=== PATIENT | female | born 1970 | race Caucasian/White ===

== ENCOUNTER 2019-05-08 16:55 | Emergency (ER) | payer OTHER, SELFPAY ==
--- NOTE | 2019-05-08 17:05 | ED.URI ---
HPI - URI/Sore Throat General Chief Complaint: Upper Respiratory Infection Stated Complaint: sore throat/ear pn Time Seen by Provider: 05/08/19 17:15 Source: patient and RN notes reviewed History of Present Illness HPI Narrative: Patient is a 48-year-old female presents the urgent care with complaints of sore throat and bilateral ear pain. Patient states that it started last night and she boarded a plane this afternoon. Denies any use of djof-fxf-[id number] medication for symptoms. Denies any known exposure to flu or strep. Denies any known fever, nausea, vomiting. No other acute complaints. No acute distress noted. Patient aware of the plan of care. Related Data Home Medications Medication Instructions Recorded Confirmed levothyroxine [Synthroid] 100 mcg PO DAILY 05/08/19 05/08/19 lisinopril 20 mg PO DAILY 05/08/19 05/08/19 Allergies Allergy/AdvReac Type Severity Reaction Status Date / Time acetaminophen [From Percocet] Allergy Hallucinati Verified 05/08/19 17:14 ng codeine Allergy Rash Verified 05/08/19 17:14 oxycodone [From Percocet] Allergy Hallucinati Verified 05/08/19 17:14 ng Review of Systems Review of Systems: Narrative: CONSTITUTIONAL: Denies fever, chills, or sweats. EYES: Denies visual changes, redness, or discharge. ENT: Reports of sore throat and bilateral ear pain CARDIOVASCULAR: Denies chest pain, palpitations, or edema. RESPIRATORY: Denies cough or dyspnea. GASTROINTESTINAL: Denies abdominal pain, nausea, vomiting, or diarrhea. GENITOURINARY: Denies dysuria or hematuria. SKIN: Denies rash or itching. MUSCULOSKELETAL: Denies back pain, joint pain, or myalgia. NEUROLOGIC: Denies headache, numbness, or weakness. All other systems reviewed are negative, except as documented in HPI. PMFSH Comments At the time of my signature, I reviewed and agree with the nursing past medical, surgical, social, and family history. There is no relevant family history pertinent to the patient complaint. Exam Narrative: Exam Narrative: GENERAL: This is a well-nourished, well-developed patient, in no apparent distress. HEAD: normocephalic, atraumatic. EYES: PERRL. Sclera clear/white. Vision is grossly intact. EARS: External ears normal, auditory canals clear and without drainage, mild fluid noted behind bilateral TMs without otitis, TMs normal without perforation. Hearing grossly intact. NOSE: External nose normal with no obvious nasal discharge, nares without redness, no rhinorrhea. THROAT: Mucous membranes moist. Moderate postnasal drainage with mild posterior oropharynx without tonsillar edema or exudate. NECK: Neck supple, non-tender without lymphadenopathy, masses or thyromegaly. CARDIOVASCULAR: Regular rate and rhythm without murmurs, gallops, or rubs. RESPIRATORY: Clear to auscultation. Breath sounds equal bilaterally. No wheezes, rales, or rhonchi. SKIN: warm, intact with no suspicious lesions or rash, good texture and turgor. NEURO: awake, alert, and oriented to person, place and time. There were no obvious focal neurologic abnormalities. EXTREMITIES: No clubbing, cyanosis, or edema. Course Vital Signs Vital signs: Vital Signs Temperature 99.4 F 05/08/19 17:09 Pulse Rate 78 05/08/19 17:09 Respiratory Rate 20 05/08/19 17:09 Blood Pressure 122/79 05/08/19 17:09 Pulse Oximetry 100 05/08/19 17:09 Temperature 99.4 F 05/08/19 17:09 Pulse Rate 78 05/08/19 17:09 Respiratory Rate 20 05/08/19 17:09 Blood Pressure 122/79 05/08/19 17:09 Pulse Oximetry 100 05/08/19 17:09 Reviewed MDM - URI/Sore Throat MDM Narrative Medical decision making narrative: Reviewed lab results with the patient. She is aware that her strep swab was negative. Educated patient on culture and will call within 72 hours if culture is positive and antibiotics are necessary. Advised the patient to use [id number]-xim-[id number] medication such as Claritin/Zyrtec in conjunction with Flonase nasal spray for postnas
[2019-05-08 17:09] VITALS: BP 122/79; PULSE 78; RESP 20; TEMP 37.4; O2SAT 100
== END 2019-05-08 17:30 | disposition home or self-care (01) ==
PROVIDERS: Emergency Provider Nurse Practitioner Family; PCP Family Medicine
DX: J02.9 Acute pharyngitis, unspecified (principal); I10 Essential (primary) hypertension; E03.9 Hypothyroidism, unspecified
CPT/HCPCS: 87081; 87880; 99203; G0463

== ENCOUNTER 2019-08-12 18:54 | Emergency (ER) | payer OTHER, SELFPAY ==
--- NOTE | ~2019-08-12 | XR_ITS ---
EXAMINATION: XR knee RT min 4V EXAM DATE: 08/12/2019 19:28 INDICATION: [place] pop one week ago, persistent right knee posterior lateral pain. TECHNIQUE: Right knee frontal, crosstable lateral, orthogonal oblique projections for interpretation . There is no prior study for comparison. FINDINGS: No evidence osteochondral defect or joint body in the right knee joint. No joint effusio n. There are no acute fractures or dislocations identified. There is no subcutaneous gas. The soft tissue is unremarkable. There are no radiopaque foreign bodies. IMPRESSION: 1. Unremarkable right knee exam. Reviewed, dictated and finalized at location A.
[2019-08-12 18:55] VITALS: BP 168/86; PULSE 73; RESP 18; TEMP 36.5; O2SAT 100
--- NOTE | 2019-08-12 19:19 | ED.LOWEXIN ---
HPI - Extremity Injury (Lower) General Chief Complaint: Extremity Injury, Lower Stated Complaint: right knee pain Time Seen by Provider: 08/12/19 19:13 History of Present Illness HPI Narrative: Right knee pain for the past week. Started when she was walking up the stairs and heard a pop. Worsening in severity. The pain is in the anteriorlateral of the knee. Worse with bearing weight and knee extension. Mild improvement with walking on her toes. Taking ibuprofen without relief. Related Data Home Medications Medication Instructions Recorded Confirmed levothyroxine [Synthroid] 100 mcg PO DAILY 05/08/19 05/08/19 lisinopril 20 mg PO DAILY 05/08/19 05/08/19 Allergies Allergy/AdvReac Type Severity Reaction Status Date / Time acetaminophen [From Percocet] Allergy Hallucinati Verified 08/12/19 18:58 ng codeine Allergy Rash Verified 08/12/19 18:58 oxycodone [From Percocet] Allergy Hallucinati Verified 08/12/19 18:58 ng Review of Systems Review of Systems: All systems reviewed & are unremarkable except as noted in HPI and below Constitutional: Constitutional: Denies fever(s) and Denies weakness Cardiovascular: Cardiovascular: Denies chest pain Respiratory: Respiratory: Denies dyspnea Musculoskeletal: Musculoskeletal: Denies back pain Integumentary/Breasts: Skin/Breast: Denies rash Neurologic: Denies numbness and Denies weakness PMFSH Social History Social History (Updated 08/13/19 @ 02:25 by Silverio Garcia MD) Smoking status: Never smoker Exam Const: General: healthy appearing, no acute distress and alert Nutritional Appearance: well nourished Orientation/consciousness: patient oriented x3 HENMT: Head: normal to inspection Resp: Effort & Inspection: normal respiratory effort Cardio: Jugular venous distension: no JVD Rate: regular rate Rhythm: regular rhythm Heart sounds: no murmurs Skin: General skin exam: normal color Wounds: no wounds Neuro: General: patient oriented x3 and moves all extremities Speech: normal speech Gait exam (Neuro): Normal gait present Extrem: General: normal to inspection and edema Other: lateral joint line tenderness. No swelling, erythema, deformity, instability Psych: Appearance: well kempt Affect: normal affect Course Vital Signs Vital signs: Vital Signs Temperature 36.5 C 08/12/19 18:55 Pulse Rate 73 08/12/19 18:55 Respiratory Rate 18 08/12/19 18:55 Blood Pressure 168/86 H 08/12/19 18:55 Pulse Oximetry 100 08/12/19 18:55 Temperature 36.5 C 08/12/19 18:55 Pulse Rate 72 08/12/19 20:06 Respiratory Rate 18 08/12/19 20:06 Blood Pressure 142/96 H 08/12/19 20:06 Pulse Oximetry 98 08/12/19 20:06 MDM - Extremity Injury (Lower) MDM Narrative Medical decision making narrative: Mechanism does not suggest severe injury. essentially normal exam. X-ray negative. Will provide a prescrition for short course of pain medication. Discharge Plan Discharge Clinical Impression: Acute knee pain Patient Disposition: Home, Self-Care Condition: Stable Instructions: Knee Pain (ED) Prescriptions: New tramadol 50 mg tablet 50 mg PO Q6H PRN (Reason: pain) Qty: 10 RF: 0 No Action lisinopril 20 mg Tablet 20 mg PO DAILY RF: 0 levothyroxine [Synthroid] 100 mcg Tablet 100 mcg PO DAILY RF: 0 Follow-up/Referrals: Grace,Mack Martin MD [Primary Care Provider] - Discharge Date/Time: 08/12/19 20:08
[2019-08-12 20:06] VITALS: BP 142/96; PULSE 72; RESP 18; O2SAT 98
== END 2019-08-12 20:08 | disposition home or self-care (01) ==
PROVIDERS: Emergency Provider Emergency Medicine; PCP Family Medicine
DX: M25.561 Pain in right knee (principal)
CPT/HCPCS: 73564; 99283

== ENCOUNTER 2021-04-12 16:11 | Emergency (ER) | payer OTHER, SELFPAY ==
--- NOTE | 2021-04-12 16:19 | ED.EYEPROB ---
HPI - Eye Problem General Chief complaint: Eye Problems Stated complaint: rt eye pain Time Seen by Provider: 04/12/21 16:40 Source: patient Mode of arrival: ambulatory Limitations: no limitations History of Present Illness HPI Narrative: 50-year-old female presenting for complaint of right lower eyelid pain, swelling, and stye. She states she woke this morning with some crusted drainage and itching. Pain radiates to the right upper cheek. Denies any vision changes or photophobia. Does not wear contact lenses. chief complaint: eye pain Related Data Home Medications Medication Instructions Recorded Confirmed levothyroxine [Synthroid] 100 mcg PO DAILY 05/08/19 04/12/21 lisinopril 20 mg PO DAILY 05/08/19 04/12/21 Allergies Allergy/AdvReac Type Severity Reaction Status Date / Time acetaminophen [From Percocet] Allergy Hallucinati Verified 04/12/21 16:27 ng ciprofloxacin [From Cipro] Allergy Unknown Verified 04/12/21 16:49 codeine Allergy Rash Verified 04/12/21 16:27 metronidazole [From Flagyl] Allergy Unknown Verified 04/12/21 16:50 oxycodone [From Percocet] Allergy Hallucinati Verified 04/12/21 16:27 ng Review of Systems Review of Systems: CONSTITUTIONAL: Denies body aches, fever, chills, or sweats. EYES:Endorses swelling, redness and pain to right eye; denies FB sensation, photophobia or visual changes ENT: Denies rhinorrhea, congestion, sore throat, or otalgia. CARDIOVASCULAR: Denies chest pain, palpitations, or edema. RESPIRATORY: Denies cough or dyspnea. GASTROINTESTINAL: Denies abdominal pain, nausea, vomiting, or diarrhea. GENITOURINARY: Denies dysuria or hematuria. SKIN: Denies rash, itching, or wounds. MUSCULOSKELETAL: Denies back pain, joint pain, or myalgia. NEUROLOGIC: Denies headache, numbness, tingling, or weakness. PSYCH: Denies depression or anxiety. All systems reviewed & are unremarkable except as noted in HPI and below PMFSH Social History Social History Smoking status: Never smoker Comments At time of signature, I have reviewed and agree with nursing past medical, surgical, social and family history unless otherwise noted. Please see nursing chart for further information. There is no relevant family history pertinent to the presenting complaint Exam Narrative: GENERAL: Well-appearing, well-nourished, and in no acute distress. HEAD: Normocephalic, atraumatic. EYES: right lower eye lid swelling/redness with white center c/w stye; no conjunctival injection, EOMI. Lid eversion showed no FB ENT: Mucous membranes pink and moist. No rhinorrhea. TMs normal bilaterally. Throat normal. Uvula midline. NECK: Normal AROM. Supple. No lymphadenopathy. CHEST: No respiratory distress. Clear to auscultation. HEART: Regular rate and rhythm. No murmur appreciated. Normal peripheral pulses. ABDOMEN: Soft, nontender, nondistended, normal active bowel sounds. MUSCULOSKELETAL: No bony tenderness. EXTREMITIES: Normal range of motion. No edema. SKIN: Warm, dry, no rash. Capillary refill normal. Normal skin turgor. NEURO: No focal deficits. Alert and oriented x3. Gait steady. PSYCH: Normal affect. No signs of depression or anxiety. Course Course Emergency Course: Patient is aware of diagnosis, understands and agrees to treatment plan. Anticipatory guidance given. Patient agrees to follow-up as directed and is aware of reasons to seek care at the emergency department. Portions of this record may have been created with voice recognition software Level of Care: Express Care Visit MDM - Eye Problem Differential Diagnosis Differential diagnosis: Likely corneal abrasion, conjunctivitis, acute iritis, periorbital cellulitis and other Discharge Plan Discharge Clinical Impression: Hordeolum externum of right lower eyelid Patient Disposition: Home, Self-Care Condition: Stable Instructions: Antibiotic Theresa Chen (ED) Add
[2021-04-12 16:22] VITALS: BP 149/96; PULSE 82; RESP 18; TEMP 36.4; O2SAT 100
== END 2021-04-12 16:54 | disposition home or self-care (01) ==
PROVIDERS: Emergency Provider Nurse Practitioner Family; PCP Family Medicine
DX: H00.012 Hordeolum externum right lower eyelid (principal); I10 Essential (primary) hypertension; E03.9 Hypothyroidism, unspecified
CPT/HCPCS: 99213; G0463

== ENCOUNTER 2022-05-24 11:54 | Emergency (ER) | payer OTHER, SELFPAY ==
--- NOTE | 2022-05-24 11:59 | ED.FEMALEGU ---
HPI - Female Genitourinary General Chief complaint: Urogenital-Female Stated complaint: vaginal discomfort Time Seen by Provider: 05/24/22 11:59 Source: patient Mode of arrival: ambulatory Limitations: no limitations History of Present Illness HPI Narrative: Teresa is a 51-year-old female patient presenting to the clinic today with complaints of vaginal discomfort x2-3 days. She reports she is having some perineal pressure and pain when sitting. She reports her pain currently a 5/10 when sitting and a 1-2 when walking and standing. She denies any fever or chills. She denies any vaginal discharge or odors. States she looked in the mirror and did not see any abnormalities in this area. States the pain got worse today. Pain to this area when having a bowel movement Related Data Home Medications Medication Instructions Recorded Confirmed adalimumab 40 mg/0.4 mL 40 mg subcut DAILY 05/24/22 05/24/22 subcutaneous pen kit (Humira(CF) Pen) azathioprine 50 mg tablet 50 mg PO DAILY 05/24/22 05/24/22 Allergies Allergy/AdvReac Type Severity Reaction Status Date / Time acetaminophen [From Percocet] Allergy Hallucinati Verified 05/24/22 12:28 ng ciprofloxacin [From Cipro] Allergy Unknown Verified 05/24/22 12:28 codeine Allergy Rash Verified 05/24/22 12:28 metronidazole [From Flagyl] Allergy Unknown Verified 05/24/22 12:28 oxycodone [From Percocet] Allergy Hallucinati Verified 05/24/22 12:28 ng Review of Systems Review of Systems: Pertinent positives per HPI. Patient denies any fever, chills, rash, headache, visual changes, dizziness, cough, runny nose, sore throat, shortness of breath, chest pain, palpitations, nausea, vomiting, diarrhea, constipation, abdominal pain, or any urinary issues. PMFSH Social History Social History Smoking status: Never smoker Comments At the time of my signature, I reviewed and agree with the nursing past medical, surgical, social, and family history. There is no relevant family history pertinent to the patient complaint. Exam Narrative: General: Well-developed, well nourished, in no apparent distress Head: Normocephalic, atraumatic. Cardio: Regular rate and rhythm, s1 and s2 normal, no murmur appreciated. Resp: Clear to auscultation bilaterally, no rhonchi, rales, wheezing or rubs. Abdomen: Soft, pliable, bowel sounds present in all quadrants, non-tender to palpation, no CVAT tenderness. : External genitalia exam performed with (Pao) at bedside. Verbal consent obtained from patient. Normal external female genitalia without lesions or masses, Urinary meatus: patent without discharge, Vagina: No external lesions, masses, or discharge, Mild tenderness to perineum near anus Rectum: Large inflamed non thrombosed tender external hemorrhoid at 12 o'clock Course Course Emergency Course: Portions of this record may have been created with voice recognition software. Level of Care: Express Care Visit Vital Signs Vital signs: Vital Signs Temperature 36.5 C 05/24/22 12:14 Pulse Rate 90 05/24/22 12:14 Respiratory Rate 16 05/24/22 12:14 Blood Pressure 140/87 05/24/22 12:14 Pulse Oximetry 100 05/24/22 12:14 Temperature 36.5 C 05/24/22 12:14 Pulse Rate 90 05/24/22 12:14 Respiratory Rate 16 05/24/22 12:14 Blood Pressure 140/87 05/24/22 12:14 Pulse Oximetry 100 05/24/22 12:14 Vital signs reviewed MDM - Female Genitourinary MDM Narrative Medical decision making narrative: At the time of visit patient is resting comfortably on the exam table. I suspect the patient has an inflamed external hemorrhoid. Prescription for Anusol and lidocaine was sent to the pharmacy. Supportive measures were discussed with the patient she voiced understanding discharge instructions agrees to treatment plan. Differential Diagnosis Differential diagnosis: Likely other (Perineal cyst, p
[2022-05-24 12:14] VITALS: BP 140/87; PULSE 90; RESP 16; TEMP 36.5; O2SAT 100
== END 2022-05-24 12:40 | disposition home or self-care (01) ==
PROVIDERS: Emergency Provider Nurse Practitioner Family; PCP Family Medicine
DX: K64.4 Residual hemorrhoidal skin tags (principal); I10 Essential (primary) hypertension; E03.9 Hypothyroidism, unspecified; M06.9 Rheumatoid arthritis, unspecified
CPT/HCPCS: 99213; G0463

== ENCOUNTER 2024-06-13 10:00 | Emergency (ER) | payer OTHER, SELFPAY ==
[2024-06-13 10:15] VITALS: BP 109/82; PULSE 85; RESP 18; TEMP 36.6; O2SAT 98
--- NOTE | 2024-06-13 10:19 | ED.URI ---
HPI - URI/Sore Throat General Chief Complaint: Upper Respiratory Infection Stated Complaint: sore throat History of Present Illness HPI Narrative: 53-year-old female with autoimmune disease presented for complaint of sore throat, nasal drainage, headache, chills and sweats. Onset last night. Denies shortness of breath, wheezing, nausea, vomiting, diarrhea or lethargy. Has been using cough drops and mewc-irr-nenzfnb medicine without significant improvement. Related Data Home Medications ?Medication ?Instructions ?Recorded ?Confirmed ?Last Taken ?Type adalimumab 40 mg/0.4 mL 40 mg subcut DAILY 05/24/22 05/24/22 Unknown History subcutaneous pen kit (Humira(CF) Pen) azathioprine 50 mg tablet 50 mg PO DAILY 05/24/22 05/24/22 Unknown History Allergies Allergy/AdvReac Type Severity Reaction Status Date / Time ciprofloxacin (From Cipro) Allergy Mild Rash Verified 06/13/24 10:11 codeine Allergy Mild Rash Verified 06/13/24 10:11 metronidazole (From Flagyl) Allergy Mild Rash Verified 06/13/24 10:11 acetaminophen (From Percocet) AdvReac Intermediate Hallucinati Verified 06/13/24 10:11 ng oxycodone (From Percocet) AdvReac Intermediate Hallucinati Verified 06/13/24 10:11 ng Review of Systems Review of Systems: CONSTITUTIONAL: reports fever, chills, or sweats. EYES: Denies visual changes, redness, or discharge. ENT:reports sore throat Denies rhinorrhea, congestion, or otalgia. CARDIOVASCULAR: Denies chest pain, palpitations, or edema. RESPIRATORY: Denies dyspnea. GASTROINTESTINAL: Denies abdominal pain, nausea, vomiting, or diarrhea. SKIN: Denies rash NEUROLOGIC: Denies headache [facility] Social History Social History Smoking status: Never smoker Exam Narrative: GENERAL: well-appearing, no acute distress. EYES: conjunctivae clear ENT: Mucous membranes moist. TM pearly landers with normal light reflex bilaterally; no tragal tenderness. Oropharynx not erythematous without lesions. Tonsils enlarged 1+ and without exudate. No drooling, no hoarseness, no trismus, uvula midline. No tripod positioning, hot potato voice, or soft palate swelling. NECK: Supple. No lymphadenopathy CHEST: Clear to auscultation, breath sounds equal. No respiratory distress, speaks in full sentences. HEART: Regular rate and rhythm. No murmur heard. SKIN: Warm, dry, no rash. NEURO: Alert and oriented x3. Course Course Emergency Course: Patient is aware of diagnosis, understands and agrees to treatment plan. Anticipatory guidance given. Patient agrees to follow-up as directed and is aware of reasons to seek care at the emergency department. Portions of this record may have been created with voice recognition software Level of Care: Express Care Visit MDM - URI/Sore Throat MDM Narrative Medical decision making narrative: neg flu covid, strep result reviewed with pt. Advise supportive treatments. Patient is appropriate for outpatient treatment and follow-up. Differential Diagnosis Differential diagnosis: Likely upper respiratory infection, viral infection and pharyngitis Discharge Plan Discharge Clinical Impression: Upper respiratory infection Patient Disposition: Home, Self-Care Condition: Stable Instructions: Antibiotic Form, Upper Respiratory Infection (ED) Additional Instructions: Flu and COVID negative today. It may be too early to detect the virus, therefore we recommend retesting at home in 1-2 days Continue to follow general precautions: frequent handwashing, wear a mask, isolate/social distance, and avoid crowds if you have a fever. You must be fever free for 24 hours without the use of fever reducing medication (Tylenol/ibuprofen) before returning to work/school/crowds. Rapid strep swab was negative today You will be notified in a few days if the culture comes back positive for strep, and appropriate antibiotics will be called in at that time. if symptoms are due to a viral illness, it is not treated with antibiotics. Viral symptoms can be present for up to 10-14 days. Recommendations: Flonase spray and Zyrtec for sinus congestion/drainage Cough syrup may cause drowsiness; avoid driving or take it at night time. Tylenol every 8 hours as needed for pain/fever Soft foods, cool liquids, warm tea. Gargle with warm saltwater twice a day. Chloraseptic spray and throat lozenges. Rest and stay hydrated. --Follow up with your PCP --Go to the ER immediately if you cannot swallow your saliva, trouble breathing/wheezing, throat swelling, pain is persistent and severe Patient Language: B[place] Prescriptions: No Action azathioprine 50 mg tablet 50 mg PO DAILY Humira(CF) Pen 40 mg/0.4 mL pen injector kit 40 mg SUBCUT DAILY hydrocortisone [Anusol-HC] 2.5 % cream with perineal applicator 1 applic RECTAL DAILY PRN (Reason: hemorrhoids) 30 Days Qty: 30 0RF lidocaine HCl [Lidocaine Viscous] 2 % solution 1 applic topical QID PRN (Reason: pain) 7 Days Qty: 100 1RF Follow-up/Referrals: Edward,Sidney [Other] Time of Disposition: 10:33
[2024-06-13 10:34] LABS: EDCOVIDSCREEN Negative (Negative); EDINFLUASCREEN Negative (Negative); EDINFLUBSCREEN Negative (Negative); EDSTREPNEGPOS1 Negative (Negative)
--- OUTSIDE RECORDS SUMMARY | 2024-06-13 11:32 | XMS_ITS | Encounter Summary ---
Author Organization [facility] Address [facility] [place] [address] Care Team Providers Care [employer] Compounder Name Role Phone Adam Nielsen MD Unavailable Unavailable Gage Pham MD Unavailable [phone] Sara Mansfield [facility] Primary Care Provider + Sidney Leon DO Primary Care Provider [phone] Encounter Details Date Type Department Care Team (Late st Contact Info) Description 02/04/2022 [employer] Message Enc [facility] Family & Internal Medicine [address] [address] Sara Mansfield [id number] [place] [address] Question regarding TSH W/REFLEX Social History Tobacco Use Types Packs/Day Years Used Date Smoking Tobacco: Former Cigarettes 1 986 - 03/22/2016 Smokeless Tobacco: Never Comments:Stopped 5 years ago Alcohol Use Standard Drinks/Week Comments Not Currently 0 (1 standard drink = 0.6 oz pur e alcohol) AUDIT-C Answer Date Recorded Q1: How often do you have a drink containing alc ohol? 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 GRINDER documented as of this encounter Plan of Treatment Upcoming Encounters Date Type Department Care Team (Late st Contact Info) Description 06/14/2024 7:20 AM CDT Office Visit [facility]ispecialty [facility] - [address], [address] [place] [address] Any Shaver MD [address] [place] [address] 06/20/2024 1:00 PM CDT Office Visit [facility] Orthopedic & Sports Medicine - [place] [address] [place] [address] Ryan Strange, BOBBY [address] [place] [address] 11/23/2024 1:00 PM CDT Office Visit [facility] Family Medicine - [place] [address] [place] [id number] Sidney Leon DO [address] [place] [address] documented as of this encounter Visit Diagnoses Not on filedocumented in this encounter Additional Health Concerns Assessment Noted Time PHQ-9 Depression Total Score: 4 12/20/19 21 8:53 AM CDT documented as of this encounter Care Teams [employer] Compounder Relationship Specialty Start Date End Date Sara Mansfield, RATE MANAGER- [facility], [address] [place] [id number] PCP - General Nurse Practitioner Family 12/19/20 09/15/22 Sidney [place] [address] PCP - General 09/16/22 Adam Nielsen MD Referring Physician RHEUMATOLOGY 12/19/20 Gage Pham MD [facility], [address] [place] [id number] Physician CARDIOVASCULAR DISEASE 12/19/20 documented as of this encounter
--- OUTSIDE RECORDS SUMMARY | 2024-06-13 11:32 | XMS_ITS | Encounter Summary ---
Author Organization [facility] Address [facility]6 [place] [address] Care Team Providers Care Dry Wall Installer Name Role Phone Adam Nielsen MD Unavailable Unavailable Gage Pham MD Unavailable Sidney Leon DO Primary Care Provider [phone] Encounter Details Date Type Department Care Team (Late st Contact Info) Description 10/14/2023 MyChart Message Enc [facility] - [facility] 3 [facility], [address] [place] [address] Any Shaver MD 3 [place], [place] [id number] Topamax update Social History Tobacco Use Types Packs/Day Years [...] on file 04/23 PHQ-2 Answer Date Recorded Patient Health Questionnaire-2 Score 0 05/27/2023 Comments No Sex and Gender Information Value Date Recorded Sex Assigned at Female 05/10/2019 11:42 AM TECHNICAL DELIVERY MANAGER Legal Sex Female 4:46 PM CDT Gender Identity Female 05/10/2019 11:42 AM TECHNICAL DELIVERY MANAGER Sexual Orientation Straight 05/10/2019 11 :42 AM TECHNICAL DELIVERY MANAGER 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 [address] 11/23/2024 1:00 PM CDT Office Visit [facility] Family Medicine - [place] [address] [place] [address] Sidney Leon DO [address] [place] [address] [place] [address] documented as of this encounter Visit Diagnoses Not on filedocumented in this encounter Additional Health Concerns Assessment Noted Time PHQ-9 Depression Total Score: 4 12/20/19 21 8:53 AM CDT documented as of this encounter Care Teams Dry Wall Installer Relationship Specialty Start Date End Date Sidney Leon DO [address] [place], [place] [id number] PCP - General 09/16/22 Adam Nielsen MD Referring Physician RHEUMATOLOGY 12/19/20 Gage Pham MD [facility], [address] [place] [address] Physician CARDIOVASCULAR DISEASE 12/19/20 documented as of this encounter
--- OUTSIDE RECORDS SUMMARY | 2024-06-13 11:32 | XMS_ITS | Encounter Summary ---
Author Organization [facility] Address [facility]6 [place] [address] Care Team Providers Care Art Conservator Name Role Phone Adam Nielsen MD Unavailable Unavailable Gage Pham MD Unavailable Sidney Leon DO Primary Care Provider [phone] Encounter Details Date Type Department Care Team (Late st Contact Info) Description 03/05/2024 Enprise Solutionst Message Enc [facility] Medical Group Family Medicine - [place] 5 [place] [address] Sidney Leon DO [address] [place] [address] Welbutrin Social History Tobacco Use Types Packs/Day Years Used Date Smoking Tobacco: Former Cigarettes 1 986 - 03/22/2016 Passive Smoke Exposure: Past Smokeless Tobacco: Never Comments:Stopped 5 years ago [...] Date Recorded Patient Health Questionnaire-2 Score 0 11/17/2023 Comments No Sex and Gender Information Value Date Recorded Sex Assigned at Female 05/10/2019 11:42 AM MEAT CUTTER APPRENTICE Legal Sex Female 4:46 PM CDT Gender Identity Female 05/10/2019 11:42 AM MEAT CUTTER APPRENTICE Sexual Orientation Straight 05/10/2019 11 :42 AM MEAT CUTTER APPRENTICE 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 Not on file Not on file documented as of this encounter Plan of Treatment Upcoming Encounters Date Type Department Care Team (Late st Contact Info) Description 06/14/2024 7:20 AM CDT Office Visit [facility] Multispecialty Care - [facility] 3 [facility], [address] [place] [address] Any Shaver MD 3 [place] [address] 06/20/2024 1:00 PM CDT Office Visit [facility] Orthopedic & Sports Medicine - [place] [address] [place], [place] [address] Ryan Strange NP 670 [place] [address] 11/23/2024 1:00 PM CDT Office Visit [facility] Family Medicine [facility] 5 [place] [address] Sidney Leon DO [address] [place] [address] [place], [place] [phone] documented as of this encounter Visit Diagnoses Not on filedocumented in this encounter Additional Health Concerns Assessment Noted Time PHQ-9 Depression Total Score: 4 12/20/19 21 8:53 AM CDT documented as of this encounter Care Teams Art Conservator Relationship Specialty Start Date End Date Sidney Leon DO [address] [place], [place] [id number] PCP - General 09/16/22 Adam Nielsen MD Referring Physician RHEUMATOLOGY 12/19/20 Gage Pham MD [facility], [address] [place] [address] Physician CARDIOVASCULAR DISEASE 12/19/20 documented as of this encounter
--- OUTSIDE RECORDS SUMMARY | 2024-06-13 11:32 | XMS_ITS | Encounter Summary ---
Author Organization [facility] Address [facility]6 [place] [address] Care Team Providers Care Appeals Referee Name Role Phone Adam Nielsen MD Unavailable Unavailable Gage Pham MD Unavailable Sidney Leon DO Primary Care Provider [phone] Encounter Details Date Type Department Care Team (Late st Contact Info) Description 10/08/2022 AddThist Message Enc [facility] Medical Group Family Medicine - [place] 5 [place] [address] Sidney Leon DO [address] [place] [address] Pharmacy Social History Tobacco Use Types Packs/Day Years [...] Date Recorded Patient Health Questionnaire-2 Score 0 10/07/2022 Comments No Sex and Gender Information Value Date Recorded Sex Assigned at Female 05/10/2019 11:42 AM REVIEW ENGINEER Legal Sex Female 4:46 PM CDT Gender Identity Female 05/10/2019 11:42 AM REVIEW ENGINEER Sexual Orientation Straight 05/10/2019 11 :42 AM REVIEW ENGINEER 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 Not on file Not on file documented as of this encounter Plan of Treatment Upcoming Encounters Date Type Department Care Team (Late st Contact Info) Description 06/14/2024 7:20 AM CDT Office Visit [facility] Mult[facility]pecialty Care - [facility] 3 [facility], [address] [place] [address] Any Shaver MD 3 [place] [address] 06/20/2024 1:00 PM CDT Office Visit [facility] Orthopedic & Sports Medicine - [place] [address] [place], [place] [phone] Ryan tSrange NP 670 [place], [place] [address] 11/23/2024 1:00 PM CDT Office Visit [facility] Family Medicine [facility] 5 [place] [address] Sidney Leon DO [address] [place] [address] [place], [place] [phone] documented as of this encounter Visit Diagnoses Not on filedocumented in this encounter Additional Health Concerns Assessment Noted Time PHQ-9 Depression Total Score: 4 12/20/19 21 8:53 AM CDT documented as of this encounter Care Teams Appeals Referee Relationship Specialty Start Date End Date Sidney Leon DO [address] [place] [address] PCP - General 09/16/22 Adam Nielsen MD Referring Physician RHEUMATOLOGY 12/19/20 Gage Pham MD [facility] [address] [place] [address] Physician CARDIOVASCULAR DISEASE 12/19/20 documented as of this encounter
--- OUTSIDE RECORDS SUMMARY | 2024-06-13 11:32 | XMS_ITS | Encounter Summary ---
Author Organization [facility] Address [facility] [place] [address] Care Team Providers Care Refuse Driver Name Role Phone Adam Nielsen MD Unavailable Unavailable Gage Pham MD Unavailable Sidney Leon DO Primary Care Provider [phone] Encounter Details Date Type Department Care Team (Late st Contact Info) Description 06/13/2024 Nano Magnetics Message Enc [facility] Medical Group Family Medicine - [place] 5 [place] [address] Germaine Mkceon NP 5 [place] [address] Strep test Social History Tobacco Use Types Packs/Day Years [...] Date Recorded Patient Health Questionnaire-2 Score 0 06/07/2024 Comments No Sex and Gender Information Value Date Recorded Sex Assigned at Female 05/10/2019 11:42 AM HYDRAULIC TESTER Legal Sex Female 4:46 PM CDT Gender Identity Female 05/10/2019 11:42 AM HYDRAULIC TESTER Sexual Orientation Straight 05/10/2019 11 :42 AM HYDRAULIC TESTER 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 Pt was wanting to get a strep test done. Let pt know that we can schedule her an appt in the [place] office or go to the Urgent Care. Pt chose to go to the Urgent Care since there was one close to her house documented in this encounter Plan of Treatment Upcoming Encounters Date Type Department Care Team (Late st Contact Info) Description 06/14/2024 7:20 AM CDT Office Visit [facility] Multispecialty Care - [facility] 3 [facility], [address] [place] [address] Any Shaver MD 3 [place] [address] 06/20/2024 1:00 PM CDT Office Visit [facility] Orthopedic & Sports Medicine - [place] [address] [place] [address] Ryan Strange NP 670 [facility] [place] [address] 11/23/2024 1:00 PM CDT Office Visit [facility] Family Medicine - [place] 5 [place] [address] Sidney Leon DO [address] [place] [id number] documented as of this encounter Visit Diagnoses Not on filedocumented in this encounter Additional Health Concerns Assessment Noted Time PHQ-9 Depression Total Score: 0 06/08/19 25 12:13 PM CDT documented as of this encounter Care Teams Refuse Driver Relationship Specialty Start Date End Date Sidney Leon [place] [address] PCP - General 09/16/22 Adam Nielsen MD Referring Physician RHEUMATOLOGY 12/19/20 Gage Pham MD [facility], [address] [place] [address] Physician CARDIOVASCULAR DISEASE 12/19/20 documented as of this encounter
--- OUTSIDE RECORDS SUMMARY | 2024-06-13 11:32 | XMS_ITS | Encounter Summary ---
Author Organization [facility] Address [facility] [place] [address] Care Team Providers Care Director Process Name Role Phone Adam Nielsen MD Unavailable Unavailable Gage Pham MD Unavailable [phone] Sara Mansfield [facility] Primary Care Provider + Sidney Leon DO Primary Care Provider [phone] Encounter Details Date Type Department Care Team (Late st Contact Info) Description 10/23/2021 Purple Bindert Message Enc [facility] Medical Group Family & Internal Medicine [address] [address] Sara Mansfield [address] [address] Changes Social History Tobacco Use Types Packs/Day Years [...] please move on to questions 3-9 0 08/26/2021 Comments No Sex and Gender Information Value Date Recorded Sex Assigned at Female 05/10/2019 11:42 AM PRINT DECORATOR Legal Sex Female 4:46 PM CDT Gender Identity Female 05/10/2019 11:42 AM PRINT DECORATOR Sexual Orientation Straight 05/10/2019 11 :42 AM PRINT DECORATOR 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 No / Unsure 10/17/2021 7:10 AM CDT documented as of this encounter Progress Notes * Dara Pathak RN - 2021 4:38 PM CDT Please advise documented in this encounter Plan of Treatment Upcoming Encounters Date Type Department Care Team (Late st Contact Info) Description 06/14/2024 7:20 AM CDT Office Visit [facility] Multispecialty Care - [facility] 3 [facility], [address] [place] [address] Any Shaver MD 3 [place] [address] 06/20/2024 1:00 PM CDT Office Visit [facility] Orthopedic & Sports Medicine - [place] [address] [place] [address] Ryan Strange NP 670 [facility] [place] [address] 11/23/2024 1:00 PM CDT Office Visit [facility] Family Medicine - [place] 5 [place] [address] [place] [address] documented as of this encounter Visit Diagnoses Not on filedocumented in this encounter Additional Health Concerns Assessment Noted Time PHQ-9 Depression Total Score: 4 12/20/19 21 8:53 AM CDT documented as of this encounter Care Teams Director Process Relationship Specialty Start Date End Date Shyla CARLIN Ruiz [facility], [address] [place] [address] PCP - General Nurse Practitioner Family 12/19/20 09/15/22 Sidney [place] [address] PCP - General 09/16/22 Adam Nielsen MD Referring Physician RHEUMATOLOGY 12/19/20 Gage Pham MD [facility], [address] [place] [address] Physician CARDIOVASCULAR DISEASE 12/19/20 documented as of this encounter
--- OUTSIDE RECORDS SUMMARY | 2024-06-13 11:32 | XMS_ITS | Encounter Summary ---
Author Organization [facility] Address [facility]6 [place] [address] Care Team Providers Care Journeyman Machinist Name Role Phone Adam Nielsen MD Unavailable Unavailable Gage Pham MD Unavailable Sidney Leon DO Primary Care Provider [phone] Encounter Details Date Type Department Care Team (Late st Contact Info) Description 04/14/2024 Heroes2ut Message Enc [facility] Family Medicine - [place] 5 [place] [address] Sidney Leon DO [address] [place] [address] Jose Alejandro cedeno Social History Tobacco Use Types Packs/Day Years [...] Sex Assigned at Female 05/10/2019 11:42 AM SLASHER TENDER Legal Sex Female 4:46 PM CDT Gender Identity Female 05/10/2019 11:42 AM SLASHER TENDER Sexual Orientation Straight 05/10/2019 11 :42 AM SLASHER TENDER 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 Not on file Not on file documented as of this encounter Plan of Treatment Upcoming Encounters Date Type Department Care Team (Late st Contact Info) Description 06/14/2024 7:20 AM CDT Office Visit [facility] - [facility] 3 [facility], [address] [place] [address] Any Shaver MD 3 [place] [address] 06/20/2024 1:00 PM CDT Office Visit [facility] Orthopedic & Sports Medicine - [place] [address] [place], [place] [address] Ryan Strange NP 670 [place] [address] 11/23/2024 1:00 PM CDT Office Visit [facility] Family Medicine [facility] 5 [place] [address] Sidney Leon DO [address] [place] [address] [place], [place] [phone] documented as of this encounter Visit Diagnoses Not on filedocumented in this encounter Additional Health Concerns Assessment Noted Time PHQ-9 Depression Total Score: 4 12/20/19 21 8:53 AM CDT documented as of this encounter Care Teams Journeyman Machinist Relationship Specialty Start Date End Date Sidney Leon DO [address] [place], [place] [phone] PCP - General 09/16/22 Adam Nielsen MD Referring Physician RHEUMATOLOGY 12/19/20 Gage Pham MD [facility] [address] [place] [address] Physician CARDIOVASCULAR DISEASE 12/19/20 documented as of this encounter
--- OUTSIDE RECORDS SUMMARY | 2024-06-13 11:32 | XMS_ITS | Encounter Summary ---
Author Organization [facility] Address [facility] [place] [address] Care Team Providers Care Plywood Layup Line Core Feeder Name Role Phone Adam Nielsen MD Unavailable Unavailable Gage Pham MD Unavailable [phone] Sara Mansfield [facility] Primary Care Provider + Sidney Leon DO Primary Care Provider [phone] Encounter Details Date Type Department Care Team (Latest Contact Info) Description 11/20/2021 [employer] Message Enc [facility] Medical Group Family & Internal Medicine [address] [address] Sara Mansfield [place] [address] [place] [address] Loom Checker update Social History Tobacco Use Types Packs/Day [...] Sex Assigned at Female 05/10/2019 11:42 AM NUCLEAR POWER PLANT ENGINEER Legal Sex Female 4:46 PM CDT Gender Identity Female 05/10/2019 11:42 AM NUCLEAR POWER PLANT ENGINEER Sexual Orientation Straight 05/10/2019 11 :42 AM NUCLEAR POWER PLANT ENGINEER 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 No / Unsure 11/13/2021 8:37 AM CDT documented as of this encounter Progress Notes * Jorge Álvarez RN - 11/20/2021 9:54 AM CDT Faxing last set of labs. See patient message. documented in this encounter Plan of Treatment Upcoming Encounters Date Type Department Care Team (Late st Contact Info) Description 06/14/2024 7:20 AM CDT Office Visit [facility] Multispecialty Care - [facility] 3 [facility], [address] [place] [address] Any Shaver MD 3 [place] [address] 06/20/2024 1:00 PM CDT Office Visit [facility] Orthopedic & Sports Medicine - [place] [address] [place] [address] Ryan Strange NP [address] [place] [address] 11/23/2024 1:00 PM CDT Office Visit [facility] Family Medicine - [place] 5 [place] [address] [place] [address] documented as of this encounter Visit Diagnoses Not on filedocumented in this encounter Additional Health Concerns Assessment Noted Time PHQ-9 Depression Total Score: 4 12/20/19 21 8:53 AM CDT documented as of this encounter Care Teams Plywood Layup Line Core Feeder Relationship Specialty Start Date End Date Sara Mansfield [facility], [address] [place] [address] PCP - General Nurse Practitioner Family 12/19/20 09/15/22 Sidney Leon DO [address] [place], [place] [id number] PCP - General 09/16/22 Adam Nielsen MD Referring Physician RHEUMATOLOGY 12/19/20 Gage Pham MD [facility], [address] [place] [address] Physician CARDIOVASCULAR DISEASE 12/19/20 documented as of this encounter
--- OUTSIDE RECORDS SUMMARY | 2024-06-13 11:32 | XMS_ITS | Encounter Summary ---
Author Organization [facility] Address [facility]6 [place] [address] Care Team Providers Care General Manager Road Production Name Role Phone Adam Nielsen MD Unavailable Unavailable Gage Pham MD Unavailable Sidney Leon DO Primary Care Provider [phone] Encounter Details Date Type Department Care Team (Late st Contact Info) Description 02/18/2023 RTF Logict Message Enc [facility] Medical Group Multispecialty Care - [facility] 3 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, [address] [place] [address] Any Shaver MD 3 [place] [address] 06/20/2024 1:00 PM CDT Office Visit [facility] Orthopedic & Sports Medicine - [place] [address] [place], [place] [address] Ryan Strange NP 670 [place], [place] [phone] 11/23/2024 1:00 PM CDT Office Visit [facility] Family Medicine - [place] 5 [place] [address] Sidney Leon DO [address] [place] [address] documented as of this encounter Visit Diagnoses Not on filedocumented in this encounter Additional Health Concerns Assessment Noted Time PHQ-9 Depression Total Score: 4 12/20/19 21 8:53 AM CDT documented as of this encounter Care Teams General Manager Road Production Relationship Specialty Start Date End Date Sidney Leon DO 5 [facility] [place] [address] PCP - General 09/16/22 Adam Nielsen MD Referring Physician RHEUMATOLOGY 12/19/20 Gage Pham MD Three [facility] [address] [place] [address] Physician CARDIOVASCULAR DISEASE 12/19/20 documented as of this encounter
--- OUTSIDE RECORDS SUMMARY | 2024-06-13 11:32 | XMS_ITS | Clinical Summary ---
Author Organization [facility] Address [address] [place] [address] Care Team Providers Care Storeperson Name Role Phone Mack Edwards MD Primary Care Provider [phone] Source Comments [facility],non-owned Affiliates and Associated Physician Practices is amultiple site organization consisting of ambulatory clinics and hospital sitesin [place], [place], [place] and [place]. This disclosure is being madepursuant to the Care Everywhere program and may not contain all information available regarding this patient. Last updated 17.[facility] Allergies Active Allergy Reactions Criticality Noted Date Comments Bupropion Other 12/17/2016 Had cardiac issues/ unsure of relationship to this medication Cephalexin Urticaria Medium 12/17/2016 Ciprofloxacin Rash Medium 06/24/2017 Levofloxacin Urticaria Medium 05/10/2015 Metronidazole Urticaria Medium 12/10/2016 Oxycodone-Acetaminophen Psychiatric,Urti ca kit,Other,Unknown Medium 08/27/2016 Altered mental status Altered mental status Altered mental status Medications * Be aware that medications may not be up to date on this document. Alwaysverify current medications with the patient. Medication Sig Dispensed Refills Start Date End Date Status levothyroxine (SYNTHROID) 100 MCG tablet Take 100 mcg by mouth once daily 09/05/2019 Active lisinopril (PRINIVIL;ZESTRIL) 5 MG tablet Take 5 mg by mouth once daily 09/05/2019 Active Magnesium Hydroxide (MAGNESIA PO) Take 400 mg by mouth Three times a week Active acetaminophen-codeine (TYLENOL #3) 300-30 MG tablet Take 1 tablet by mouth every 6 hours as needed for Pain 12 tablet 01/01/2020 Active levothyroxine (SYNTHROID) 88 MCG tablet 12/29/2019 Active predniSONE (DELTASONE) 10 MG tablet 12/15/2019 Active Magnesium Hydroxide 400 MG Take 400 mg by mouth Active prednisoLONE acetate (PRED FORTE) 1 % ophthalmic suspension Instill 1 drop into left eye 4 times daily 15 mL 01/08/2020 Active tobramycin (TOBREX) 0.3 % ophthalmic solution Instill 1 drop into left eye 4 times daily 5 mL 01/15/2020 Active Active Problems Problem Noted Date Diagnosed Date Asthma 10/10/2019 Current smoker 10/10/2019 Hemorrhoids, thrombosed 10/10/2019 Hyperlipoproteinemia 10/10/2019 Idiopathic peripheral neuropathy 10/10/2019 Insomnia 10/10/2019 Overview (10/10/2019): pt feels a little down but denies depression or anxiety. 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 discussed available local counselors if desired in the future. declines to try meds at this time for depression. has been educated on sleep hygiene in the past and is following recommendations. f/u prn Nephrolithiasis 10/10/2019 Hypertension 08/27/2016 Hypothyroidism 08/27/2016 Overview (10/10/2019): repeat tsh in 1 month Family History Medical History Relation Name Comments Cancer - Other Father Glaucoma Maternal Grandmother Hypertension Maternal Grandmother Cancer - Breast Mother Hypertension Mother Relation Name Status Comments Father Maternal Grandmother Mother Social History Tobacco Use Types Packs/Day Years Used Date Smoking Tobacco: Former Smokeless Tobacco: Never Alcohol Use Standard Drinks/Week Comments Not Currently 0 (1 standard drink = 0.6 oz pur e alcohol) Sex and Gender Information Value Date Recorded Sex Assigned at Not on file Gender Identity Not on file Sexual Orientation Not on file Last Filed Vital Signs Vital Sign Reading Time Taken Comments Blood Pressure 122/88 01/01/2020 1:00 PM CDT Pulse 106 01/01/2020 1:00 PM CDT Temperature 36.6 C (97.8 F) 01/01/2020 11:48 AM CDT Respiratory Rate 12 01/01/2020 1:00 PM CDT Oxygen Saturation 95% 01/01/2020 1:00 PM CDT Inhaled Oxygen Concentration - - Weight 65.8 kg (145 lb) 01/01/2020 9:21 AM CDT Height 157.5 cm (5' 2 ) 01/01/2020 9:21 AM CDT Body Mass Index 26.52 01/01/2020 9:21 AM CDT Plan of Treatment Health Maintenance Due Date Last Done Comments COLOGUARD (AGES 45-75) - COLON CA SCREENING 1970 COLON MONITORING 1970 COLONOSCOPY - COLON CA SCREENING 1970 CT COLONOGRAPHY - COLON CA SCREENING 1970 Colorectal Cancer Screening 1970 FIT - COLON CA SCREENING 1970 FLEX SIG - COLON CA SCREENING 1970 MAMMOGRAM 1970 PAP SMEAR 1970 HIV SCREENING 1985 HEPATITIS C SCREENING 10/19/1988 DTAP/TDAP/TD VACCINES (1 - Tdap) 1989 HEPATITIS B VACCINE (1 of 3 - 19+ 3-dose series) 1989 PNEUMOCOCCAL VACCINE 50+ (1 of 2 - PCV) 1989 SCREENING FOR DIABETES 01/08/2020 ZOSTER VACCINE (1 of 2) 2020 COVID-19 VACCINE (3 - 2023- season) 2023 05/03/2020, 04/05/2020 INFLUENZA VACCINE (#1) 2023 , 01/04/2020, 01/02/2019, Additional history exists DEPRESSION SCREENING 03/22/2024 LIPID TESTING 08/28/2026 08/28/2021 HIB VACCINE Aged Out No longer eligi ble based on patient's age to complete this topic HPV VACCINE Aged Out No longer eligi ble based on patient's age to complete this topic MENINGOCOCCAL (Group B) VACCINE SHARED DECISION-MAKING Aged Out No longer eligible based on patient's age to complete this topic MENINGOCOCCAL GROUPS A/C/Y/W VACCINE Aged Out No longer eligible based on patient's age to complete this topic PARENT,TERESA Personal/Family 1970 [address] [place] [address] PARENT,TERESA Personal/Family Other [address] [place] [address] PARENT,TERESA Personal/Family Other [address] [facility] [place] [address] PARENT,TERESA Personal/Family Other [address] [place] [address] PARENT,TERESA Personal/Family Other [address] [place] [address] PARENT,TERESA Personal/Family Other [address] [place] [address] PARENT,TERESA Personal/Family Other [address] [place] [address] PARENT,TERESA Personal/Family Other [address] [place] [address], [place] [address] PARENT,TERESA Personal/Family Other [address] [place] [address], [place] [address] Care Teams Storeperson Relationship Specialty Start Date End Date Mack Edwards MD PCP - General 05/11/19
--- OUTSIDE RECORDS SUMMARY | 2024-06-13 11:32 | XMS_ITS | Encounter Summary ---
Author Organization [facility] Address [facility] [place] [address] Care Team Providers Care Ladle Liner Helper Name Role Phone Adam Nielsen MD Unavailable Unavailable Gage Pham MD Unavailable [phone] Sara Mansfield [facility] Primary Care Provider + Sidney Leon DO Primary Care Provider [phone] Encounter Details Date Type Department Care Team (Late st Contact Info) Description 08/29/2021 Havkraftt Message Enc [facility] Medical Group Family & Internal Medicine [address] [address] Sara Mansfield [address] [address] Question regarding FERRITIN Social History Tobacco Use Types Packs/Day Years [...] Sex Assigned at Female 05/10/2019 11:42 AM DIRECTOR OF CHANNEL MARKETING Legal Sex Female 4:46 PM CDT Gender Identity Female 05/10/2019 11:42 AM DIRECTOR OF CHANNEL MARKETING Sexual Orientation Straight 05/10/2019 11 :42 AM DIRECTOR OF CHANNEL MARKETING 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 No / Unsure 08/28/2021 7:36 AM CDT documented as of this encounter Progress Notes * Jorge Álvarez RN - 08/29/2021 12:23 PM CDT Attached to duplicate message. And forwarded to provider. documented in this encounter Plan of Treatment Upcoming Encounters Date Type Department Care Team (Late st Contact Info) Description 06/14/2024 7:20 AM CDT Office Visit [facility] - [facility] [address] [facility], [address] [place] [address] Any Shaver MD 3 [place] [address] 06/20/2024 1:00 PM CDT Office Visit [facility] Orthopedic & Sports Medicine - [place] [address] [place] [address] Ryan Strange NP [address] [facility] [place] [address] 11/23/2024 1:00 PM CDT Office Visit [facility] Family Medicine - [place] [address] [place] [phone] [place] [address] documented as of this encounter Visit Diagnoses Not on filedocumented in this encounter Additional Health Concerns Assessment Noted Time PHQ-9 Depression Total Score: 4 12/20/19 21 8:53 AM CDT documented as of this encounter Care Teams Ladle Liner Helper Relationship Specialty Start Date End Date Sara Mansfield [facility], [address] [place] [address] PCP - General Nurse Practitioner Family 12/19/20 09/15/22 Sidney Leon DO [address] [place], [place] [id number] PCP - General 09/16/22 Adam Nielsen MD Referring Physician RHEUMATOLOGY 12/19/20 Gage Pham MD [facility], [address] [place] [address] Physician CARDIOVASCULAR DISEASE 12/19/20 documented as of this encounter
--- OUTSIDE RECORDS SUMMARY | 2024-06-13 11:32 | XMS_ITS | Encounter Summary ---
Author Organization [facility] Address [facility] [place] [address] Care Team Providers Care Dishing Machine Operator Name Role Phone Adam Nielsen MD Unavailable Unavailable Gage Pham MD Unavailable [phone] Sidney Leon DO Primary Care Provider [phone] Encounter Details Date Type Department Care Team (Late st Contact Info) Description 05/10/2023 BeloorBayir Biotecht Message Enc [facility] Medical Group Family Medicine - [place] 5 [place] [address] Sidney Leon DO [address] [place] [address] Surgical consult Social History Tobacco Use Types Packs/Day Years [...] Sex Assigned at Female 05/10/2019 11:42 AM SUPERVISOR SCREEN PRINTING Legal Sex Female 4:46 PM CDT Gender Identity Female 05/10/2019 11:42 AM SUPERVISOR SCREEN PRINTING Sexual Orientation Straight 05/10/2019 11 :42 AM SUPERVISOR SCREEN PRINTING 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 Not on file Not on file documented as of this encounter Plan of Treatment Upcoming Encounters Date Type Department Care Team (Late st Contact Info) Description 06/14/2024 7:20 AM CDT Office Visit [facility] Multispecialty Care - [facility] [address] [facility], [address] [place] [address] Any Shaver MD 3 [place] [address] 06/20/2024 1:00 PM CDT Office Visit [facility] Orthopedic & Sports Medicine [facility] [address] [place], [place] [address] Ryan Strange NP [address] [place] [address] 11/23/2024 1:00 PM CDT Office Visit [facility] Family Medicine [facility] 5 [place] [address] Sidney Leon DO [address] [place] [address] [place] [address] documented as of this encounter Visit Diagnoses Not on filedocumented in this encounter Additional Health Concerns Assessment Noted Time PHQ-9 Depression Total Score: 4 12/20/19 21 8:53 AM CDT documented as of this encounter Care Teams Dishing Machine Operator Relationship Specialty Start Date End Date Sidney Leon DO [address] [place] [address] PCP - General 09/16/22 Adam Nielsen MD Referring Physician RHEUMATOLOGY 12/19/20 Gage Pham MD [facility] [address] [place] [address] Physician CARDIOVASCULAR DISEASE 12/19/20 documented as of this encounter
--- OUTSIDE RECORDS SUMMARY | 2024-06-13 11:32 | XMS_ITS | Encounter Summary ---
Author Organization [facility] Address [facility] [place] [address] Care Team Providers Care Net Making Supervisor Name Role Phone Adam Nielsen MD Unavailable Unavailable Gage Pham MD Unavailable [phone] [facility] Primary Care Provider + Sidney Leon DO Primary Care Provider [phone] Encounter Details Date Type Department Care Team (Late st Contact Info) Description 12/31/2021 Green Graphixt Message Enc [facility] Medical Group Family & Internal Medicine [address] [address] Sara Mansfield [address] [address] Covid Social History Tobacco Use Types Packs/Day Years [...] Sex Assigned at Female 05/10/2019 11:42 AM RUBBER INSULATOR Legal Sex Female 4:46 PM CDT Gender Identity Female 05/10/2019 11:42 AM RUBBER INSULATOR Sexual Orientation Straight 05/10/2019 11 :42 AM RUBBER INSULATOR 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 No / Unsure 12/11/2021 6:47 AM CDT documented as of this encounter Plan of Treatment Upcoming Encounters Date Type Department Care Team (Late st Contact Info) Description 06/14/2024 7:20 AM CDT Office Visit [facility] Multispecialty Care - [address], [address] [place] [address] Any Shaver MD [address] [place] [address] 06/20/2024 1:00 PM CDT Office Visit [facility] Orthopedic & Sports Medicine - [place] [address] [place] [address] Ryan Strange, LOCOMOTIVE CRANE OPERATOR HELPER [address] [facility] [place] [address] 11/23/2024 1:00 PM CDT Office Visit [facility] Medical Group Family Medicine - [place] 5 [place] [address] Sidney Leon DO 5 [place] [address] documented as of this encounter Visit Diagnoses Not on filedocumented in this encounter Additional Health Concerns Assessment Noted Time PHQ-9 Depression Total Score: 4 12/20/19 21 8:53 AM CDT documented as of this encounter Care Teams Net Making Supervisor Relationship Specialty Start Date End Date Sara Mansfield, [facility], [address] [place] [address] PCP - General Nurse Practitioner Family 12/19/20 09/15/22 Sidney Leon DO [address] [place] [address] [place] [address] PCP - General 09/16/22 Adam Nielsen MD Referring Physician RHEUMATOLOGY 12/19/20 Gage Pham MD [facility], [address] [place] [address] Physician CARDIOVASCULAR DISEASE 12/19/20 documented as of this encounter
--- OUTSIDE RECORDS SUMMARY | 2024-06-13 11:32 | XMS_ITS | Encounter Summary ---
Author Organization [facility] Address [facility] [place] [address] Care Team Providers Care Ux Visual Designer Name Role Phone Adam Nielsen MD Unavailable Unavailable Gage Pham MD Unavailable [phone] Sidney Leon DO Primary Care Provider [phone] Encounter Details Date Type Department Care Team (Latest Contact Info) Description 02/01/2024 Adlyt Message Enc [facility] Medical Group Multispecialty Care - [facility] [address] [facility], [address] [place] [address] Any Shaver MD 3 [place], [place] [phone] Not impressed with New Allied Health Professional Social History Tobacco Use Types Packs/Day Years [...] Sex Assigned at Female 05/10/2019 11:42 AM CV TECH Legal Sex Female 4:46 PM CDT Gender Identity Female 05/10/2019 11:42 AM CV TECH Sexual Orientation Straight 05/10/2019 11 :42 AM CV TECH 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 Not on file Not on file documented as of this encounter Plan of Treatment Upcoming Encounters Date Type Department Care Team (Late st Contact Info) Description 06/14/2024 7:20 AM CDT Office Visit [facility] Multispecialty Care - [facility] [address] [facility], [address] [place] [address] Any Shaver MD 3 [place] [address] 06/20/2024 1:00 PM CDT Office Visit [facility] Orthopedic & Sports Medicine - [place] [address] [place] [address] Ryan Strange, CAD DESIGN ENGINEER [address] [facility]. [place], [place] [address] 11/23/2024 1:00 PM CDT Office Visit [facility] Family Medicine - [place] [address] [place] [address] Sidney Leon DO [address] [place] [address] [place] [address] documented as of this encounter Visit Diagnoses Not on filedocumented in this encounter Additional Health Concerns Assessment Noted Time PHQ-9 Depression Total Score: 4 12/20/19 21 8:53 AM CDT documented as of this encounter Care Teams Ux Visual Designer Relationship Specialty Start Date End Date Sidney Leon DO [address] [place], [place] [phone] PCP - General 09/16/22 Adam Nielsen MD Referring Physician RHEUMATOLOGY 12/19/20 Gage Pham MD [facility], [address] [place] [address] Physician CARDIOVASCULAR DISEASE 12/19/20 documented as of this encounter
--- OUTSIDE RECORDS SUMMARY | 2024-06-13 11:32 | XMS_ITS | Encounter Summary ---
Author Organization [facility] Address [facility] [place] [address] Care Team Providers Care Business Development Analyst Name Role Phone Adam Nielsen MD Unavailable Unavailable Gage Pham MD Unavailable [phone] Sidney Leon DO Primary Care Provider [phone] Encounter Details Date Type Department Care Team (Late st Contact Info) Description 10/20/2023 MyChart Message Enc [facility] Medical Group Multispecialty Care - [facility] [address] [facility], [address] [place] [address] Any Shaver MD 3 [place] [address] Development Social History Tobacco Use Types Packs/Day Years [...] Sex Assigned at Female 05/10/2019 11:42 AM RAZOR SHARPENER Legal Sex Female 4:46 PM CDT Gender Identity Female 05/10/2019 11:42 AM RAZOR SHARPENER Sexual Orientation Straight 05/10/2019 11 :42 AM RAZOR SHARPENER 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 Not on file Not on file documented as of this encounter Plan of Treatment Upcoming Encounters Date Type Department Care Team (Late st Contact Info) Description 06/14/2024 7:20 AM CDT Office Visit [facility] Multispecialty Care - [facility] [address] [facility], [address] [place] [address] Any Shaver MD 3 [place] [address] 06/20/2024 1:00 PM CDT Office Visit [facility] Orthopedic & Sports Medicine - [place] [address], [place] [address] Ryan Strange NP [address] [place] [address] 11/23/2024 1:00 PM CDT Office Visit [facility] Family Medicine - [place] 5 [place] [address] Sidney Leon DO [address] [place] [address] [place] [address] documented as of this encounter Visit Diagnoses Not on filedocumented in this encounter Additional Health Concerns Assessment Noted Time PHQ-9 Depression Total Score: 4 12/20/19 21 8:53 AM CDT documented as of this encounter Care Teams Business Development Analyst Relationship Specialty Start Date End Date Sidney Leon DO [address] [place] [address] PCP - General 09/16/22 Adam Nielsen MD Referring Physician RHEUMATOLOGY 12/19/20 Gage Pham MD [facility], [address] [place], [place] [id number] Physician CARDIOVASCULAR DISEASE 12/19/20 documented as of this encounter
--- OUTSIDE RECORDS SUMMARY | 2024-06-13 11:32 | XMS_ITS | Encounter Summary ---
Author Organization [facility] Address [facility] [place] [address] Care Team Providers Care Newspaper Photojournalist Name Role Phone Adam Nielsen MD Unavailable Unavailable Gage Pham MD Unavailable Sidney Leon DO Primary Care Provider [phone] Encounter Details Date Type Department Care Team (Late st Contact Info) Description 12/08/2022 FameBitt Message Enc [facility] Medical Group Family Medicine - [place] 5 [place] [address] Sidney Leon DO [address] [place] [address] Update Social History Tobacco Use Types Packs/Day Years [...] Sex Assigned at Female 05/10/2019 11:42 AM MANUAL EQUIPMENT MECHANIC Legal Sex Female 4:46 PM CDT Gender Identity Female 05/10/2019 11:42 AM MANUAL EQUIPMENT MECHANIC Sexual Orientation Straight 05/10/2019 11 :42 AM MANUAL EQUIPMENT MECHANIC 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 Not on file Not on file documented as of this encounter Plan of Treatment Upcoming Encounters Date Type Department Care Team (Late st Contact Info) Description 06/14/2024 7:20 AM CDT Office Visit [facility] Multispecialty Care - [facility] [address] [facility], [address] [place] [address] Any Shaver MD 3 [place] [address] 06/20/2024 1:00 PM CDT Office Visit [facility] Orthopedic & Sports Medicine - [place] [address] [place], [place] [phone] Ryan Strange NP [address] [place], [place] [address] 11/23/2024 1:00 PM CDT Office Visit [facility] Family Medicine [facility] 5 [place] [address] Sidney Leon DO [address] [place] [address] [place], [place] [phone] documented as of this encounter Visit Diagnoses Not on filedocumented in this encounter Additional Health Concerns Assessment Noted Time PHQ-9 Depression Total Score: 4 12/20/19 21 8:53 AM CDT documented as of this encounter Care Teams Newspaper Photojournalist Relationship Specialty Start Date End Date Sidney Leon DO [address] [place] [address] PCP - General 09/16/22 Adam Nielsen MD Referring Physician RHEUMATOLOGY 12/19/20 Gage Pham MD [facility] [address] [place] [address] Physician CARDIOVASCULAR DISEASE 12/19/20 documented as of this encounter
--- OUTSIDE RECORDS SUMMARY | 2024-06-13 11:32 | XMS_ITS | Encounter Summary ---
Author Organization [facility] Address [facility] [place] [address] Care Team Providers Care Etcher Apprentice Photoengraving Name Role Phone Adam Nielsen MD Unavailable Unavailable Gage Pham MD Unavailable [phone] Sara Mansfield [facility] Primary Care Provider + Sidney Leon DO Primary Care Provider [phone] Encounter Details Date Type Department Care Team (Late st Contact Info) Description 12/02/2021 MyCEasyPropertyt Message Enc [facility] Medical Group Family & Internal Medicine [address] [address] Sara Mansfield [address] [address] Results from GI Social History Tobacco Use Types Packs/Day Years [...] please move on to questions 3-9 0 12/02/2021 Comments No Sex and Gender Information Value Date Recorded Sex Assigned at Female 05/10/2019 11:42 AM METER MAKER Legal Sex Female 4:46 PM CDT Gender Identity Female 05/10/2019 11:42 AM METER MAKER Sexual Orientation Straight 05/10/2019 11 :42 AM METER MAKER 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 No / Unsure 12/02/2021 7:21 AM CDT documented as of this encounter Progress Notes * Jorge Álvarez RN - 12/02/2021 11:32 AM CDT CHERI was in [facility] yesterday. documented in this encounter Plan of Treatment Upcoming Encounters Date Type Department Care Team (Late st Contact Info) Description 06/14/2024 7:20 AM CDT Office Visit [facility]ispecialty Care - [facility] 3 [facility], [address] [place] [address] Ayn Shaver MD 3 [place] [address] 06/20/2024 1:00 PM CDT Office Visit [facility] Orthopedic & Sports Medicine - [place] [address] [place] [address] Ryan Strange NP [address] [facility] [place] [address] 11/23/2024 1:00 PM CDT Office Visit [facility] Family Medicine - [place] 5 [place] [address] [place] [address] documented as of this encounter Visit Diagnoses Not on filedocumented in this encounter Additional Health Concerns Assessment Noted Time PHQ-9 Depression Total Score: 4 12/20/19 21 8:53 AM CDT documented as of this encounter Care Teams Etcher Apprentice Photoengraving Relationship Specialty Start Date End Date Sara Mansfield [facility], [address] [place] [address] PCP - General Nurse Practitioner Family 12/19/20 09/15/22 Sidney Leon DO [address] [place], [place] [id number] PCP - General 09/16/22 Adam Nielsen MD Referring Physician RHEUMATOLOGY 12/19/20 Gage Pham MD [facility], [address] [place] [address] Physician CARDIOVASCULAR DISEASE 12/19/20 documented as of this encounter
--- OUTSIDE RECORDS SUMMARY | 2024-06-13 11:32 | XMS_ITS | Encounter Summary ---
Author Organization [facility] Address [facility] [place] [address] Care Team Providers Care Director Of Social Services Name Role Phone Adam Nielsen MD Unavailable Unavailable Gage Pham MD Unavailable [phone] Sidney Leon DO Primary Care Provider [phone] Encounter Details Date Type Department Care Team (Late st Contact Info) Description 04/16/2023 Fingerprintt Message Enc [facility] Medical Group Multispecialty Care - [facility] [address] [facility] [address], [address] [place] [address] Sharon Carter NP MRI results Social History Tobacco Use Types Packs/Day Years [...] Sex Assigned at Female 05/10/2019 11:42 AM LOAN DOCUMENTS CLOSER Legal Sex Female 4:46 PM CDT Gender Identity Female 05/10/2019 11:42 AM LOAN DOCUMENTS CLOSER Sexual Orientation Straight 05/10/2019 11 :42 AM LOAN DOCUMENTS CLOSER 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 DOCUMENTS CLOSER * Key Neri RN - 04/16/2023 1:29 PM CST Please advise DOCUMENTS CLOSER documented in this encounter Plan of Treatment Upcoming Encounters Date Type Department Care Team (Late st Contact Info) Description 06/14/2024 7:20 AM CDT Office Visit [facility] Multispecialty [facility] - [facility] 3 [facility], [address] [place] [address] Any Shaver MD 3 [place] [address] 06/20/2024 1:00 PM CDT Office Visit [facility] Orthopedic & Sports Medicine - [place] [address] [place] [address] Ryan Strange NP [address] [facility] [place] [address] 11/23/2024 1:00 PM CDT Office Visit [facility] Family Medicine [facility] 5 [facility] [place] [address] Sidney Leon DO [address] [place] [address] documented as of this encounter Visit Diagnoses Not on filedocumented in this encounter Additional Health Concerns Assessment Noted Time PHQ-9 Depression Total Score: 4 12/20/19 21 8:53 AM CDT documented as of this encounter Care Teams Director Of Social Services Relationship Specialty Start Date End Date Sidney Leon DO [address] [place] [address] PCP - General 09/16/22 Adam Nielsen MD Referring Physician RHEUMATOLOGY 12/19/20 Gage Pham MD [facility], [address] [place] [address] Physician CARDIOVASCULAR DISEASE 12/19/20 documented as of this encounter
--- OUTSIDE RECORDS SUMMARY | 2024-06-13 11:32 | XMS_ITS | Encounter Summary ---
Author Organization [facility] Address [facility] [place] [address] Care Team Providers Care Datapower Consultant Name Role Phone Blair Wheatley MD Unavailable [phone] Mack Edwards MD Primary Care Provider [phone] Adam Nielsen MD Unavailable Unavailable Gage Pham MD Unavailable [phone] Sara Mansfield [facility] Primary Care Provider + Sidney Leon DO Primary Care Provider [phone] Encounter Details Date Type Department Care Team (Late st Contact Info) Description 05/22/2019 MyCBackspacest Message Enc [facility] Medical Group Family & Internal Medicine [address] [address] Sara Mansfield [address] [address] RE: Follow Up/Update Social History Tobacco Use Types Packs/Day Years Used Date Smoking Tobacco: Former Cigarettes Smokeless Tobacco: Never Comments:quit 12/07/16 Alcohol Use Standard Drinks/Week Comments Yes 0 (1 standard drink = 0.6 oz pur e alcohol) very little Comments No Sex and Gender Information Value Date Recorded Sex Assigned at Female 05/10/2019 11:42 AM THERMOPLASTIC TECHNICIAN Legal Sex Female 4:46 PM CDT Gender Identity Female 05/10/2019 11:42 AM THERMOPLASTIC TECHNICIAN Sexual Orientation Straight 05/10/2019 11 :42 AM THERMOPLASTIC TECHNICIAN 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 Thank you! I also sent her a mychart last night regarding her MRA results after I was able to discuss with Dr. Edwards. MOPLASTIC TECHNICIAN * Cindi Lion RN - 05/23/2019 9:58 AM CST FYI MOPLASTIC TECHNICIAN documented in this encounter Plan of Treatment Upcoming Encounters Date Type Department Care Team (Late st Contact Info) Description 06/14/2024 7:20 AM CDT Office Visit [facility] Multispecialty Care - [facility] 3 [facility], [address] [place] [address] Any Shaver MD 3 [place] [address] 06/20/2024 1:00 PM CDT Office Visit [facility] Orthopedic & Sports Medicine - [place] [address] [place] [address] Ryan Strange, BOBBY [address] [facility] [place] [address] 11/23/2024 1:00 PM CDT Office Visit [facility] Family Medicine - [place] 5 [place] [address] Sidney Leon DO 5 [place] [address] documented as of this encounter Visit Diagnoses Not on filedocumented in this encounter Care Teams Datapower Consultant Relationship Specialty [place] [address] [place] [address] PCP - General FAMILY PRACTICE 12/10/16 12/18/20 Sara Mansfield, [facility], Suite [facility] [place] [address] PCP - General Nurse Practitioner Family 12/19/20 09/15/22 Sidney Leon DO [address] [place] [address] PCP - General 09/16/22 Blair Wheatley MD [facility] [address] [place] [address] Erwin Spice Blender CARDIOVASCULAR DISEASE 12/10/16 12/18/20 [place] [address] [place] [address] Referring Physician RHEUMATOLOGY 12/19/20 Gage Pham MD [facility], [address] [place] [address] Physician CARDIOVASCULAR DISEASE 12/19/20 documented as of this encounter
--- OUTSIDE RECORDS SUMMARY | 2024-06-13 11:32 | XMS_ITS | Encounter Summary ---
Author Organization [facility] Address [facility] [place] [address] Care Team Providers Care Natural Resources Extension Educator Name Role Phone Adam Nielsen MD Unavailable Unavailable Gage Pham MD Unavailable [phone] Sara Mansfield [facility] Primary Care Provider + Sidney Leon DO Primary Care Provider [phone] Encounter Details Date Type Department Care Team (Late st Contact Info) Description 01/13/2022 InvoiceSharingt Message Enc [facility] Medical Group Family & Internal Medicine [address] [address] Sara Mansfield [address] [address] Thyroid Social History Tobacco Use Types Packs/Day Years [...] Sex Assigned at Female 05/10/2019 11:42 AM TIMBER SIZER OPERATOR Legal Sex Female 4:46 PM CDT Gender Identity Female 05/10/2019 11:42 AM TIMBER SIZER OPERATOR Sexual Orientation Straight 05/10/2019 11 :42 AM TIMBER SIZER OPERATOR 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 ER SIZER OPERATOR documented in this encounter Plan of Treatment Upcoming Encounters Date Type Department Care Team (Late st Contact Info) Description 06/14/2024 7:20 AM CDT Office Visit [facility] Multispecialty [facility] 3 [facility], [address] [place] [address] Any Shaver MD 3 [place] [address] 06/20/2024 1:00 PM CDT Office Visit [facility] Orthopedic & Sports Medicine - [place] [address] [place] [address] Ryan Strange NP [address] [place] [address] 11/23/2024 1:00 PM CDT Office Visit [facility] Family Medicine - [place] [address] [place] [address] Sidney Leon DO [address] [place] [address] documented as of this encounter Visit Diagnoses Not on filedocumented in this encounter Additional Health Concerns Assessment Noted Time PHQ-9 Depression Total Score: 4 09/30/20 21 8:53 AM CDT documented as of this encounter Care Teams Natural Resources Extension Educator Relationship Specialty Start Date End Date Sara Mansfield FNP- [facility], [address] [place] [address] PCP - General Nurse Practitioner Family 12/19/20 09/15/22 Sidney [place] [address] PCP - General 09/16/22 Adam Nielsen MD Referring Physician RHEUMATOLOGY 12/19/20 Gage Pham MD [facility], [address] [place] [address] Physician CARDIOVASCULAR DISEASE 12/19/20 documented as of this encounter
--- OUTSIDE RECORDS SUMMARY | 2024-06-13 11:32 | XMS_ITS | Encounter Summary ---
Author Organization [facility] Address [facility] [place] [address] Care Team Providers Care Digital Campaign Specialist Name Role Phone Adam Nielsen MD Unavailable Unavailable Gage Pham MD Unavailable Sidney Leon DO Primary Care Provider [phone] Encounter Details Date Type Department Care Team (Late st Contact Info) Description 11/26/2023 Platforat Message Enc [facility] Medical Group Family Medicine - [place] 5 [place] [address] Sidney Leon DO [address] [place] [address] Flu shots Social History Tobacco Use Types Packs/Day Years [...] Sex Assigned at Female 05/10/2019 11:42 AM SEAM HAMMERER Legal Sex Female 4:46 PM CDT Gender Identity Female 05/10/2019 11:42 AM SEAM HAMMERER Sexual Orientation Straight 05/10/2019 11 :42 AM SEAM HAMMERER 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 Not on file Not on file documented as of this encounter Plan of Treatment Upcoming Encounters Date Type Department Care Team (Late st Contact Info) Description 06/14/2024 7:20 AM CDT Office Visit [facility] Multispecialty Care - [facility] 3 [facility], [address] [place] [address] Any Shaver MD 3 [place] [address] 06/20/2024 1:00 PM CDT Office Visit [facility] Orthopedic & Sports Medicine - [place] [address] [place], [place] [address] Ryan Strange NP 670 [place] [address] 11/23/2024 1:00 PM CDT Office Visit [facility] Family Medicine [facility] 5 [place] [address] Sidney Leon DO [address] [place] [address] [place], [place] [address] documented as of this encounter Visit Diagnoses Not on filedocumented in this encounter Additional Health Concerns Assessment Noted Time PHQ-9 Depression Total Score: 4 12/20/19 21 8:53 AM CDT documented as of this encounter Care Teams Digital Campaign Specialist Relationship Specialty Start Date End Date Sidney Leon DO [address] [place], [place] [address] PCP - General 09/16/22 Adam Nielsen MD Referring Physician RHEUMATOLOGY 12/19/20 Gage Pham MD [facility], [address] [place] [address] Physician CARDIOVASCULAR DISEASE 12/19/20 documented as of this encounter
--- OUTSIDE RECORDS SUMMARY | 2024-06-13 11:32 | XMS_ITS | Encounter Summary ---
Author Organization [facility] Address [facility] [place] [address] Care Team Providers Care Ssis Ssrs Developer Name Role Phone Blair Wheatley MD Unavailable [phone] Mack Edwards MD Primary Care Provider [phone] Adam Nielsen MD Unavailable Unavailable Gage Pham MD Unavailable [phone] Sara Mansfield [facility] Primary Care Provider + Sidney Leon DO Primary Care Provider [phone] Encounter Details Date Type Department Care Team (Late st Contact Info) Description 12/15/2016 Abstract [facility] AT [address] [address] Annie Dockery, PROFESSOR OF ENGLISH Social History Tobacco Use Types Packs/Day Years Used Date Smoking Tobacco: Every Day Cigarettes Comments Unknown Sex and Gender Information Value Date Recorded Sex Assigned at Female 05/10/2019 11:42 AM DIRECTOR COST Legal Sex Female 4:46 PM CDT Gender Identity Female 05/10/2019 11:42 AM DIRECTOR COST Sexual Orientation Straight 05/10/2019 11 :42 AM DIRECTOR COST documented as of this encounter Plan of Treatment Upcoming Encounters Date Type Department Care Team (Late st Contact Info) Description 06/14/2024 7:20 AM CDT Office Visit [facility] Medical Group Multispecialty Care - [address], [address] [place] [address] Any Shaver MD 3 [facility] [place] [address] 06/20/2024 1:00 PM CDT Office Visit [facility] Orthopedic & Sports Medicine - [place] [address] [place] [address] Ryan Strange NP [address]70 [facility] [place] [address] 11/23/2024 1:00 PM CDT Office Visit [facility] Family Medicine [facility] 5 [place] [address] Sidney Leon, 5 [place], [place] [id number] documented as of this encounter Procedures Procedure Name Priority Date/Time Associated Diagnosis Comments CARDIAC PROFILE Routine 12/07/2016 CBC (OUTSIDE LAB) Routine 12/07/2016 BNP Routine 12/07/2016 COMPREHENSIVE METABOLIC PANEL Routine 12/07/2016 MAGNESIUM Routine 12/07/2016 CBC (OUTSIDE LAB) Routine 09/24/2016 HEPATIC FUNCTION PANEL Routine 09/24/2016 documented in this encounter Results * BNP (12/07/2016) B TYPE NATRIURETIC PEPTIDE 31 12/07/2016 us [facility] Final Result * MAGNESIUM (12/07/2016) MAGNESIUM 2.7 12/07/2016 us Doc [facility] Final Result * CARDIAC PROFILE (CK,CKMB,TROP) (12/07/2016) Pathologist [facility] CPK 137 CK MB 1.0 TROPONIN I 0 12/07/2016 us Doc [facility]ORAT[facility] Final Result * (ABNORMAL) COMPREHENSIVE METABOLIC PANEL (12/07/2016) Pathologist [facility] SODIUM S/P/B 142 POTASSIUM S/P/B 3.9 CO2 22.0 CHLORIDE S/P/B 107 GLUCOSE 96 mg/dL CALCIUM S/P/B 9.8 BUN 18 CREATININE S/P/B 1.16(A) 0.5 - 1.0 EGFR NON-AFR. AMER. 53 <=90 ALKALINE PHOSPHATASE S/P/B 71 ALT 23 AST 37 BILIRUBIN TOTAL S/P/B 0.3 ALBUMIN S/P/B 4.4 3.5 - 5.0 TOTAL PROTEIN S/P/B 7.5 12/07/2016 us Doc [facility] Final Result * CBC (OUTSIDE LAB) (12/07/2016) Pathologist [facility] WBC 8.6 HGB 13.5 HCT 37.9 PLT 267 RBC 4.02 12/07/2016 us Doc [facility] Abstract LAB-OUTSIDE/ABSTRACTED Final Result * HEPATIC FUNCTION PANEL (09/24/2016) Pathologist [facility] ALBUMIN S/P/B 4.3 3.5 - 5.0 ALKALINE PHOSPHATASE S/P/B 56 ALT 15 AST 14 BILIRUBIN DIRECT S/P/B 0.2 BILIRUBIN TOTAL S/P/B 0.5 TOTAL PROTEIN S/P/B 6.9 BILIRUBIN INDIRECT S/P/B 0.3 09/24/2016 us Doc [facility] Final Result * CBC (OUTSIDE LAB) (09/24/2016) WBC 10.4 HGB 13.3 HCT 38.0 PLT 291 RBC 3.94 09/24/2016 us Doc [facility] Abstract LAB-OUTSIDE/ABSTRACTED Final Result documented in this encounter Visit Diagnoses Not on filedocumented in this encounter Care Teams Ssis Ssrs Developer Relationship Specialty [place] [address] [place] [address] PCP - General FAMILY PRACTICE 12/10/16 12/18/20 Sara Mansfield, [facility], [address] [place] [address] PCP - General Nurse Practitioner Family 12/19/20 09/15/22 Sidney Leon DO [address] [place] [address] PCP - General 09/16/22 Blair Wheatley MD [facility] [address] [place], [place] [address] [place] Flight Superintendent CARDIOVASCULAR DISEASE 12/10/16 12/18/20 [place] [address] [place] [address] Referring Physician RHEUMATOLOGY 12/19/20 Gage Pham MD [facility], [address] [place] [address] Physician CARDIOVASCULAR DISEASE 12/19/20 documented as of this encounter
--- OUTSIDE RECORDS SUMMARY | 2024-06-13 11:32 | XMS_ITS | Encounter Summary ---
Author Organization [facility] Address [facility]6 [place] [address] Care Team Providers Care Instrumental Teacher Name Role Phone Adam Nielsen MD Unavailable Unavailable Gage Pham MD Unavailable Sidney Leon DO Primary Care Provider [phone] Encounter Details Date Type Department Care Team (Late st Contact Info) Description 10/19/2023 Signadynet Message Enc [facility] Medical Group Family Medicine - [place] 5 [place] [address] Sidney Leon DO [address] [place] [address] See you Social History Tobacco Use Types Packs/Day Years [...] Sex Assigned at Female 05/10/2019 11:42 AM FOCUSED FACTORY MANAGER Legal Sex Female 4:46 PM CDT Gender Identity Female 05/10/2019 11:42 AM FOCUSED FACTORY MANAGER Sexual Orientation Straight 05/10/2019 11 :42 AM FOCUSED FACTORY MANAGER 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, [address] [place] [address] Any Shaver MD 3 [place] [address] 06/20/2024 1:00 PM CDT Office Visit [facility] Orthopedic & Sports Medicine [facility] [address] [place], [place] [address] Ryan Strange NP 670 [place] [address] 11/23/2024 1:00 PM CDT Office Visit [facility] Family Medicine [facility] 5 [place] [address] Sidney Leon DO [address] [place] [address] [place] [address] documented as of this encounter Visit Diagnoses Not on filedocumented in this encounter Additional Health Concerns Assessment Noted Time PHQ-9 Depression Total Score: 4 12/20/19 21 8:53 AM CDT documented as of this encounter Care Teams Instrumental Teacher Relationship Specialty Start Date End Date Sidney Leon DO [address] [place] [address] PCP - General 09/16/22 Adam Nielsen MD Referring Physician RHEUMATOLOGY 12/19/20 Gage Pham MD [facility] [address] [place] [address] Physician CARDIOVASCULAR DISEASE 12/19/20 documented as of this encounter
--- OUTSIDE RECORDS SUMMARY | 2024-06-13 11:32 | XMS_ITS | Encounter Summary ---
Author Organization [facility] Address [facility] [place] [address] Care Team Providers Care Procurement Officer Name Role Phone Adam Nielsen MD Unavailable Unavailable Gage Pham MD Unavailable [phone] Sidney Leon DO Primary Care Provider [phone] Encounter Details Date Type Department Care Team (Late st Contact Info) Description 04/08/2023 GOVECSt Message Enc [facility] Medical Group Family Medicine - [place] 5 [place] [address] Sidney Leon DO [address] [place] [address] Infusion referral Social History Tobacco Use Types Packs/Day Years [...] Sex Assigned at Female 05/10/2019 11:42 AM OR RN Legal Sex Female 4:46 PM CDT Gender Identity Female 05/10/2019 11:42 AM OR RN Sexual Orientation Straight 05/10/2019 11 :42 AM OR RN 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 Not on file Not on file documented as of this encounter Plan of Treatment Upcoming Encounters Date Type Department Care Team (Late st Contact Info) Description 06/14/2024 7:20 AM CDT Office Visit [facility] Multispecialty Care - [facility] 3 [facility], [address] [place] [address] Any Shaver MD 3 [place] [address] 06/20/2024 1:00 PM CDT Office Visit [facility] Orthopedic & Sports Medicine [facility] 6[address] [place], [place] [address] Ryan Strange NP 670 [place] [address] 11/23/2024 1:00 PM CDT Office Visit [facility] Family Medicine [facility] 5 [place] [address] Sidney Leon DO [address] [place] [address] [place] [address] documented as of this encounter Visit Diagnoses Not on filedocumented in this encounter Additional Health Concerns Assessment Noted Time PHQ-9 Depression Total Score: 4 12/20/19 21 8:53 AM CDT documented as of this encounter Care Teams Procurement Officer Relationship Specialty Start Date End Date Sidney Leon DO [address] [place] [address] PCP - General 09/16/22 Adam Nielsen MD Referring Physician RHEUMATOLOGY 12/19/20 Gage Pham MD [facility] [address] [place] [address] Physician CARDIOVASCULAR DISEASE 12/19/20 documented as of this encounter
--- OUTSIDE RECORDS SUMMARY | 2024-06-13 11:32 | XMS_ITS | Encounter Summary ---
Author Organization [facility] Address [facility]6 [place] [address] Care Team Providers Care Historiography Professor Name Role Phone Adam Nielsen MD Unavailable Unavailable Gage Pham MD Unavailable [phone] Sara Mansfield [facility] Primary Care Provider + Sidney Leon DO Primary Care Provider [phone] Encounter Details Date Type Department Care Team (Late st Contact Info) Description 05/23/2022 Snocapt Message Enc [facility] Medical Group Family & Internal Medicine [facility] [address] [place] [address] [place] [address] [place] [address] OB or Urology Social History Tobacco Use Types Packs/Day Years [...] Date Recorded Patient Health Questionnaire-2 Score 0 04/22/2022 Comments No Sex and Gender Information Value Date Recorded Sex Assigned at Female 05/10/2019 11:42 AM CHIEF TALENT OFFICER Legal Sex Female 4:46 PM CDT Gender Identity Female 05/10/2019 11:42 AM CHIEF TALENT OFFICER Sexual Orientation Straight 05/10/2019 11 :42 AM CHIEF TALENT OFFICER 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 Not on file Not on file documented as of this encounter Plan of Treatment Upcoming Encounters Date Type Department Care Team (Late st Contact Info) Description 06/14/2024 7:20 AM CDT Office Visit [facility]ty [facility] - [facility] 3 [facility], [address] [place] [address] Any Shaver MD 3 [place] [address] 06/20/2024 1:00 PM CDT Office Visit [facility] Medicine [facility] [address] [place] [address] Ryan Strange, CABLE TENDER 6[address] [place], [place] [address] 11/23/2024 1:00 PM CDT Office Visit [facility] Family Medicine - [place] 5 [place] [address] Sidney Leon, 5 [place] [address] documented as of this encounter Visit Diagnoses Not on filedocumented in this encounter Additional Health Concerns Assessment Noted Time PHQ-9 Depression Total Score: 4 12/20/19 21 8:53 AM CDT documented as of this encounter Care Teams Historiography Professor Relationship Specialty Start Date End Date Sara Mansfield FNP- [facility] [address] [place], [place] [address] PCP - General Nurse Practitioner Family 12/19/20 09/15/22 Sidney Leon DO [address] [place] [address] PCP - General 09/16/22 Adam Nielsen MD Referring Physician RHEUMATOLOGY 12/19/20 Gage Pham MD [facility], [address] [place] [address] Physician CARDIOVASCULAR DISEASE 12/19/20 documented as of this encounter
--- OUTSIDE RECORDS SUMMARY | 2024-06-13 11:32 | XMS_ITS | Encounter Summary ---
Author Organization [facility] Address [facility]6 [place] [address] Care Team Providers Care Lotus Notes Developer Name Role Phone Adam Nielsen MD Unavailable Unavailable Gage Pham MD Unavailable [phone] Sidney Leon DO Primary Care Provider [phone] Encounter Details Date Type Department Care Team (Late st Contact Info) Description 09/27/2023 MyCM-Dot Networkt Message Enc [facility] Medical Group Family Medicine - [place] 5 [place] [address] Sidney Leon DO [address] [place] [address] Labs Social History Tobacco Use Types Packs/Day Years [...] Sex Assigned at Female 05/10/2019 11:42 AM FIRST COAT SANDER Legal Sex Female 4:46 PM CDT Gender Identity Female 05/10/2019 11:42 AM FIRST COAT SANDER Sexual Orientation Straight 05/10/2019 11 :42 AM FIRST COAT SANDER 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 3 [facility], [address] [place] [address] Any Shaver MD 3 [place] [address] 06/20/2024 1:00 PM CDT Office Visit [facility] Orthopedic & Sports Medicine - [place] 6[address] [place], [place] [phone] Ryan Strange NP 670 [place], [place] [address] 11/23/2024 1:00 PM CDT Office Visit [facility] Family Medicine [facility] 5 [place] [address] Sdiney Leon DO [address] [place] [address] [place], [place] [phone] documented as of this encounter Visit Diagnoses Not on filedocumented in this encounter Additional Health Concerns Assessment Noted Time PHQ-9 Depression Total Score: 4 12/20/19 21 8:53 AM CDT documented as of this encounter Care Teams Lotus Notes Developer Relationship Specialty Start Date End Date Sidney Leon DO [address] [place] [address] PCP - General 09/16/22 Adam Nielsen MD Referring Physician RHEUMATOLOGY 12/19/20 Gage Pham [facility] [address] [place] [address] Physician CARDIOVASCULAR DISEASE 12/19/20 documented as of this encounter
--- OUTSIDE RECORDS SUMMARY | 2024-06-13 11:32 | XMS_ITS | Encounter Summary ---
Author Organization [facility] Address [facility] [place] [address] Care Team Providers Care Earth Science Laboratory Technician Name Role Phone Adam Nielsen MD Unavailable Unavailable Gage Pham MD Unavailable [phone] Sara Mansfield [facility] Primary Care Provider + Sidney Leon DO Primary Care Provider [phone] Encounter Details Date Type Department Care Team (Late st Contact Info) Description 09/13/2022 GetShopAppt Message Enc 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 Not on file Not on file documented as of this encounter Plan of Treatment Upcoming Encounters Date Type Department Care Team (Late st Contact Info) Description 06/14/2024 7:20 AM CDT Office Visit [facility] Mult[facility]ialty Care - [facility] 3 [facility], [address] [place] [address] Any Shaver MD 3 [place] [address] 06/20/2024 1:00 PM CDT Office Visit [facility] Orthopedic & Sports Medicine [facility] [address] [place] [address] Ryan Strange, GAS DERRICK OPERATOR [address] [place], [place] [address] 11/23/2024 1:00 PM CDT Office Visit [facility] Family Medicine - [place] 5 [place] [address] Sidney Leon, [address] [place] [address] documented as of this encounter Visit Diagnoses Not on filedocumented in this encounter Additional Health Concerns Assessment Noted Time PHQ-9 Depression Total Score: 4 12/20/19 21 8:53 AM CDT documented as of this encounter Care Teams Earth Science Laboratory Technician Relationship Specialty Start Date End Date Sara Mansfield FNP-BC [facility] [address] [place], [place] [address] PCP - General Nurse Practitioner Family 12/19/20 09/15/22 Sidney Leon DO [address] [place] [address] PCP - General 09/16/22 Adam Nielsen MD Referring Physician RHEUMATOLOGY 12/19/20 Gage Pham MD [facility], [address] [place] [address] Physician CARDIOVASCULAR DISEASE 12/19/20 documented as of this encounter
--- OUTSIDE RECORDS SUMMARY | 2024-06-13 11:32 | XMS_ITS | Encounter Summary ---
Author Organization [facility] Address [facility] [place] [address] Care Team Providers Care Portfolio Consultant Name Role Phone Adam Nielsen MD Unavailable Unavailable Gage Pham MD Unavailable [phone] Sara Mansfield [facility] Primary Care Provider + Sidney Leon DO Primary Care Provider [phone] Encounter Details Date Type Department Care Team (Late st Contact Info) Description 11/28/2021 MyCPrixelt Message Enc 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 No / Unsure 11/28/2021 10:08 AM CDT documented as of this encounter Progress Notes * RUDDY Snyder - 12/02/2021 5:32 PM CDT ER note and testing reviewed. * Jorge Álvarez RN - 11/28/2021 11:40 AM CDT FYI documented in this encounter Plan of Treatment Upcoming Encounters Date Type Department Care Team (Late st Contact Info) Description 06/14/2024 7:20 AM CDT Office Visit [facility] Medical Group Multispecialty Care - [address], [address] [place] [address] Any Shaver MD [address] [place] [address] 06/20/2024 1:00 PM CDT Office Visit [facility] Medical Group Orthopedic & Sports Medicine - [place] [address] [place] [address] Ryan Strange NP [address] [place] [address] 11/23/2024 1:00 PM CDT Office Visit [facility] Medical Group Family Medicine - [place] [address] [place] [address] [place] [address] documented as of this encounter Visit Diagnoses Not on filedocumented in this encounter Additional Health Concerns Assessment Noted Time PHQ-9 Depression Total Score: 4 12/20/19 21 8:53 AM CDT documented as of this encounter Care Teams Portfolio Consultant Relationship Specialty Start Date End Date Sara Mansfield [facility], [address] [place] [address] PCP - General Nurse Practitioner Family 12/19/20 09/15/22 Sidney [place] [address] PCP - General 09/16/22 Adam Nielsen MD Referring Physician RHEUMATOLOGY 12/19/20 Gage Pham MD [facility], [address] [place] [address] Physician CARDIOVASCULAR DISEASE 12/19/20 documented as of this encounter
--- OUTSIDE RECORDS SUMMARY | 2024-06-13 11:32 | XMS_ITS | Encounter Summary ---
Author Organization [facility] Address [facility] [place] [address] Care Team Providers Care Dietetics Director Name Role Phone Adam Nielsen MD Unavailable Unavailable Gage Pham MD Unavailable [phone] Sara Mansfield [facility] Primary Care Provider + Sidney Leon DO Primary Care Provider [phone] Encounter Details Date Type Department Care Team (Late st Contact Info) Description 10/15/[address] [facility] 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 No / Unsure 10/17/2021 7:10 AM CDT documented as of this encounter Progress Notes * RUDDY Snyder - 10/17/2021 7:49 AM CDT Visit completed 10/17/2021 * Dara Pathak RN - 10/15/2021 12:59 PM CDT Please advise documented in this encounter Plan of Treatment Upcoming Encounters Date Type Department Care Team (Late st Contact Info) Description 06/14/2024 7:20 AM CDT Office Visit [facility] Medical Group Multispecialty Care - [address], [address] [place] [address] Any Shaver MD 3 [place] [address] 06/20/2024 1:00 PM CDT Office Visit [facility] Medical Group Orthopedic & Sports Medicine - [place] [address] [place] [address] Ryan Strange NP [address] [place] [address] 11/23/2024 1:00 PM CDT Office Visit [facility] Medical Group Family Medicine - [place] [address] [place] [address] Sidney Leon DO [address] [address] documented as of this encounter Visit Diagnoses Not on filedocumented in this encounter Additional Health Concerns Assessment Noted Time PHQ-9 Depression Total Score: 4 12/20/19 21 8:53 AM CDT documented as of this encounter Care Teams Dietetics Director Relationship Specialty Start Date End Date Sara Mansfield [facility], [address] [place] [address] PCP - General Nurse Practitioner Family 12/19/20 09/15/22 Sidney Leon DO [address] [address] PCP - General 09/16/22 Adam Nielsen MD Referring Physician RHEUMATOLOGY 12/19/20 Gage Pham MD [facility], [address] [place] [address] Physician CARDIOVASCULAR DISEASE 12/19/20 documented as of this encounter
--- OUTSIDE RECORDS SUMMARY | 2024-06-13 11:32 | XMS_ITS | Encounter Summary ---
Author Organization [facility] Address [facility] [place] [address] Care Team Providers Care Payroll Officer Name Role Phone Adam Nielsen MD Unavailable Unavailable Gage Pham MD Unavailable [phone] Sidney Leon DO Primary Care Provider [phone] Encounter Details Date Type Department Care Team (Late st Contact Info) Description 11/25/2023 MyChart Message Enc [facility] Medical Group Multispecialty Care - [facility] 3 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, [address] [place] [address] Any Shaver MD 3 [place] [address] 06/20/2024 1:00 PM CDT Office Visit [facility] Orthopedic & Sports Medicine [facility] [address] [place] [address] Ryan Strange, COMMUNITY DEVELOPMENT OFFICER 670 [facility] [place] [address] 11/23/2024 1:00 PM CDT Office Visit [facility] Family Medicine - [place] [address] [place] [address] Sideny Leon DO [address] [place] [address] [place] [address] documented as of this encounter Visit Diagnoses Not on filedocumented in this encounter Additional Health Concerns Assessment Noted Time PHQ-9 Depression Total Score: 4 12/20/19 21 8:53 AM CDT documented as of this encounter Care Teams Payroll Officer Relationship Specialty Start Date End Date Sidney Leon DO [address] [place], [place] [phone] PCP - General 09/16/22 Adam Nielsen MD Referring Physician RHEUMATOLOGY 12/19/20 Gage Pham MD [facility], [address] [place] [address] Physician CARDIOVASCULAR DISEASE 12/19/20 documented as of this encounter
--- OUTSIDE RECORDS SUMMARY | 2024-06-13 11:32 | XMS_ITS | Encounter Summary ---
Author Organization [facility] Address [facility] [place] [address] Care Team Providers Care Flatbed Truck Driver Name Role Phone Adam Nielsen MD Unavailable Unavailable Gage Pham MD Unavailable [phone] [facility] Primary Care Provider + Sidney Leon DO Primary Care Provider [phone] Encounter Details Date Type Department Care Team (Late st Contact Info) Description 08/29/2021 IMASTEt Message Enc [facility] Medical Group Family & Internal Medicine [address] [address] Sara Mansfield [address] [address] Please call Social History Tobacco Use Types Packs/Day Years [...] Sex Assigned at Female 05/10/2019 11:42 AM MIXER OPERATOR HOT METAL Legal Sex Female 4:46 PM CDT Gender Identity Female 05/10/2019 11:42 AM MIXER OPERATOR HOT METAL Sexual Orientation Straight 05/10/2019 11 :42 AM MIXER OPERATOR HOT METAL 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 No / Unsure 08/28/2021 7:36 AM CDT documented as of this encounter Progress Notes * RUDDY Snyder - 08/29/2021 3:04 PM CDT Called and and spoke to Teresa. Reviewed labs and compared labs to the 06/2021 per rheumatology. Discussed labs vs starting a supplement. Agreeable to start vitamin B12 1000 mcg daily. She has this at home. May take 1-2 tablets per day. Will assess response and repeat of labs. * Jorge Álvarez RN - 08/29/2021 12:16 PM CDT Called to check on patient to make sure everything was ok. She reports she is fine just feels like her B12 is low and really wanted to discuss with provider. Duplicate message sent from patient stated the following: So what???s the reason for the cramps. They were bad last night. With MCV and MCH high should I take vitamin B? From what I remember that shows enlarged red blood cells from possible lack of Vitamin B 12. Would that be the cause of cramping? * Jorge Álvarez RN - 08/29/2021 12:14 PM CDT See patient message documented in this encounter Plan of Treatment Upcoming Encounters Date Type Department Care Team (Late st Contact Info) Description 06/14/2024 7:20 AM CDT Office Visit [facility] Multispecialty Care - [facility] 3 [facility], [address] [place] [address] Any Shaver MD 3 [place] [address] 06/20/2024 1:00 PM CDT Office Visit [facility] Orthopedic & Sports Medicine - [place] [address] [place] [address] Ryan Strange NP [address]70 [place], [place] [phone] 11/23/2024 1:00 PM CDT Office Visit [facility] Family Medicine - [place] 5 [facility] [place] [address] Sidney Leon DO [address] [place] [address] [place] [address] documented as of this encounter Visit Diagnoses Not on filedocumented in this encounter Additional Health Concerns Assessment Noted Time PHQ-9 Depression Total Score: 4 12/20/19 21 8:53 AM CDT documented as of this encounter Care Teams Flatbed Truck Driver Relationship Specialty Start Date End Date Sara Mansfield FNP- Three [facility] [address] [place], [place] [address] PCP - General Nurse Practitioner Family 12/19/20 09/15/22 Sidney Leon DO [address] [place], [place] [phone] PCP - General 09/16/22 Adam Nielsen MD Referring Physician RHEUMATOLOGY 12/19/20 Gage Pham MD [facility], [address] [place] [address] Physician CARDIOVASCULAR DISEASE 12/19/20 documented as of this encounter
--- OUTSIDE RECORDS SUMMARY | 2024-06-13 11:32 | XMS_ITS | Encounter Summary ---
Author Organization [facility] Address [facility] [place] [address] Care Team Providers Care Branch Operations Coordinator Name Role Phone Adam Nielsen MD Unavailable Unavailable Gage Pham MD Unavailable Sidney Leon DO Primary Care Provider [phone] Encounter Details Date Type Department Care Team (Late st Contact Info) Description 11/18/2023 GoBeMet Message Enc [facility] Medical Group Family Medicine - [place] 5 [place] [address] Sidney Leon DO [address] [place] [address] Padding Machine Operator Social History Tobacco Use Types Packs/Day Years [...] Sex Assigned at Female 05/10/2019 11:42 AM MOBILE MANAGER Legal Sex Female 4:46 PM CDT Gender Identity Female 05/10/2019 11:42 AM MOBILE MANAGER Sexual Orientation Straight 05/10/2019 11 :42 AM MOBILE MANAGER 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 Not on file Not on file documented as of this encounter Plan of Treatment Upcoming Encounters Date Type Department Care Team (Late st Contact Info) Description 06/14/2024 7:20 AM CDT Office Visit [facility] Multispecialty Care - [facility] 3 [facility], [address] [place] [address] Any Shaver MD 3 [place] [address] 06/20/2024 1:00 PM CDT Office Visit [facility] Orthopedic & Sports Medicine [facility] [address] [place], [place] [address] Ryan Strange NP [address] [place] [address] 11/23/2024 1:00 PM CDT Office Visit [facility] Family Medicine [facility] 5 [place] [address] Sidney Leon DO [address] [place] [address] [place], [place] [phone] documented as of this encounter Visit Diagnoses Not on filedocumented in this encounter Additional Health Concerns Assessment Noted Time PHQ-9 Depression Total Score: 4 12/20/19 21 8:53 AM CDT documented as of this encounter Care Teams Branch Operations Coordinator Relationship Specialty Start Date End Date Sidney Leon DO [address] [place], [place] [phone] PCP - General 09/16/22 Adam Nielsen MD Referring Physician RHEUMATOLOGY 12/19/20 Gage Pham MD [facility], [address] [place] [address] Physician CARDIOVASCULAR DISEASE 12/19/20 documented as of this encounter
--- OUTSIDE RECORDS SUMMARY | 2024-06-13 11:32 | XMS_ITS | Clinical Summary ---
Author Organization [facility] [address] Address [address] [place] [address] Care Team Providers Care Director Machine Name Role Phone Unavailable Primary Care Provider Unavailabl e Encounters Date Type Department Care Team Description 05/27/2024 External Device Data ST[facility] ABSTRACTION Provider, Abstract 05/26/2024 External Device Data [facility] ABSTRACTION Provider, Abstract 05/23/2024 External Device Data [facility] ABSTRACTION Provider, Abstract 05/09/2024 External Device Data ST[facility] ABSTRACTION Provider, Abstract 04/25/2024 External Device Data ST[facility] ABSTRACTION Provider, Abstract 04/12/2024 External Device Data ST[facility] ABSTRACTION Provider, Abstract 04/11/2024 External Device Data ST[facility] ABSTRACTION Provider, Abstract from Last 3 Months Social History Tobacco Use Types Packs/Day Years Used Date Smoking Tobacco: Never Assessed Comments Unknown Sex and Gender Information Value Date Recorded Sex Assigned at Not on file Legal Sex Female 10:38 AM PLUM PACKER Gender Identity Not on file Sexual Orientation Not on file Plan of Treatment Health Maintenance Due Date Last Done Comments DTAP/TDAP/TD VACCINES (1 - Tdap) 1989 HEPATITIS B VACCINES (1 of 3 - 19+ 3-dose series) 07/1989 PAP SMEAR 10/25/1991 CERVICAL CANCER SCREENING 2000 HPV/Cotest 2000 PAP SMEAR 2000 BREAST CANCER SCREENING 2010 COLORECTAL SCREENING 10/25/2015 Colorectal Cancer Screening 10/25/2015 FIT-DNA Q 3 years 10/25/2015 FIT/FOBT Q 1 year 10/25/2015 Flex Sig/CT Colonography Q 5 years 10/25/2015 ZOSTER VACCINE (1 of 2) 2020 INFLUENZA VACCINE (#1) 2023
--- OUTSIDE RECORDS SUMMARY | 2024-06-13 11:32 | XMS_ITS | Encounter Summary ---
Author Organization [facility] Address [facility] [place] [address] Care Team Providers Care Career Resource Technician Name Role Phone Adam Nielsen MD Unavailable Unavailable Gage Pham MD Unavailable [phone] Sidney Leon DO Primary Care Provider [phone] Encounter Details Date Type Department Care Team (Late st Contact Info) Description 11/26/2023 MyChart Message Enc [facility] Medical Group Multispecialty Care - [facility] [address] [facility], [address] [place] [phone] Any Shaver MD [address] [place], [place] [phone] Spinal Tap Social History Tobacco Use Types Packs/Day Years [...] Sex Assigned at Female 05/10/2019 11:42 AM PRESS OPERATOR PRINTING Legal Sex Female 4:46 PM CDT Gender Identity Female 05/10/2019 11:42 AM PRESS OPERATOR PRINTING Sexual Orientation Straight 05/10/2019 11 :42 AM PRESS OPERATOR PRINTING 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 [address] 11/23/2024 1:00 PM CDT Office Visit [facility] Family Medicine - [place] [address] [place] [address] Sidney Leon DO [address] [place] [address] [place] [address] documented as of this encounter Visit Diagnoses Not on filedocumented in this encounter Additional Health Concerns Assessment Noted Time PHQ-9 Depression Total Score: 4 12/20/19 21 8:53 AM CDT documented as of this encounter Care Teams Career Resource Technician Relationship Specialty Start Date End Date Sidney Leon DO [address] [place] [address] PCP - General 09/16/22 Adam Nielsen MD Referring Physician RHEUMATOLOGY 12/19/20 Gage Pham MD [facility], [address] [place] [address] Physician CARDIOVASCULAR DISEASE 12/19/20 documented as of this encounter
--- OUTSIDE RECORDS SUMMARY | 2024-06-13 11:32 | XMS_ITS | Encounter Summary ---
Author Organization [facility] Address [facility] [place] [address] Care Team Providers Care Rn Hospice Name Role Phone Adam Nielsen MD Unavailable Unavailable Gage Pham MD Unavailable [phone] Sidney Leon DO Primary Care Provider [phone] Encounter Details Date Type Department Care Team (Late st Contact Info) Description 12/09/2022 [email or web address] Message Enc [facility] Medical Group Family Medicine - [place] 5 [place] [address] Sidney Leon DO [address] [place] [address] Missed mammogram Social History Tobacco Use Types Packs/Day Years [...] Sex Assigned at Female 05/10/2019 11:42 AM BATCH ANALYST Legal Sex Female 4:46 PM CDT Gender Identity Female 05/10/2019 11:42 AM BATCH ANALYST Sexual Orientation Straight 05/10/2019 11 :42 AM BATCH ANALYST 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 Multispecialty Care - [facility] 3 [facility], [address] [place] [address] Any Shaver MD 3 [place] [address] 06/20/2024 1:00 PM CDT Office Visit [facility] Orthopedic & Sports Medicine [facility] [address] [place], [place] [phone] Ryan Strange NP [address] [place] [address] 11/23/2024 1:00 PM CDT Office Visit [facility] Family Medicine [facility] 5 [place] [address] Sidney Leon DO [address] [place], [place] [id number] documented as of this encounter Visit Diagnoses Not on filedocumented in this encounter Additional Health Concerns Assessment Noted Time PHQ-9 Depression Total Score: 4 12/20/19 21 8:53 AM CDT documented as of this encounter Care Teams Rn Hospice Relationship Specialty Start Date End Date Sidney Leon DO [address] [place] [address] PCP - General 09/16/22 Adam Nielsen MD Referring Physician RHEUMATOLOGY 12/19/20 Gage Pham MD [facility] [address] [place] [address] Physician CARDIOVASCULAR DISEASE 12/19/20 documented as of this encounter
--- OUTSIDE RECORDS SUMMARY | 2024-06-13 11:33 | XMS_ITS | Clinical Summary ---
Author Organization [facility] Address [address] [place] [address] Care Team Providers Care Fire Alarm Operator Name Role Phone Adam Nielsen MD Unavailable Unavailable Gage Pham MD Unavailable [phone] Cesar Leon DO Primary Care Provider [phone] Allergies Active Allergy Reactions Criticality Noted Date Comments Ciprofloxacin Unknown Low 06/24/2017 Can not recall reaction Iodinated Contrast Media Itching Low 05/05/2023 Cephalexin Hives Low 12/17/2016 Levofloxacin Hives Low 12/17/2016 Lisinopril Cough Low 11/13/2021 Metronidazole Hives,Vomiting Low 12/10/2016 Morphine Vomiting 07/13/2023 Oxycodone-Acetaminophen Other (see comment),Hives,Unkno wn Medium 08/27/2016 Altered mental status Altered mental status Medications predniSONE (DELTASONE) 5 mg tablet prn 2 Active tocilizumab (ACTEMRA) injection every 30 (thirty) days. 3 Active traMADol (ULTRAM) 50 MG tablet TAKE 1 TABLET BY MOUTH FOUR TIMES DAILY FOR PAIN CONTROL. TAKE WITH TYLENOL 4 Active losartan (COZAAR) 50 MG tabletIndications:P rimary hypertension Take 1 tablet (50 mg total) by mouth daily. 90 tablet 3 4 Active buPROPion (WELLBUTRIN) 75 MG tabletIndications:M ood disorder,Menopausal symptoms Take 1 tablet (75 mg total) by mouth daily. 90 tablet 3 4 Active levothyroxine (SYNTHROID) 88 MCG tabletIndications:A cquired hypothyroidism Take 1 tablet (88 mcg total) by mouth every morning. 30 tablet 5 Active metoclopramide (REGLAN) 5 MG tablet Take 1 tablet (5 mg total) by mouth 4 (four) times daily. Active Active Problems Problem Noted Date Diagnosed Date Mood disorder 11/17/2023 Episodic altered awareness 11/17/2023 Abnormal EEG 11/17/2023 Mild obstructive sleep apnea 10/07/2022 Menopausal symptoms 10/07/2022 Gastroparesis 04/07/2022 Rheumatoid arthritis involvi ng multiple sites with positive rheumatoid factor ([facility]) 01/22/2020 Hyperlipoproteinemia 10/10/2019 Insomnia 10/10/2019 Overview (10/17/2019): pt feels a little down but denies depression or anxiety. would like to discuss this with [facility] geomagnetist at [facility]. discussed available local counselors if desired in the future. declines to try meds at this time for depression. has been educated on sleep hygiene in the past and is following recommendations. 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) 10/10/2019 05/01/2020 Current smoker 10/10/2019 05/01/2020 Hemorrhoids, thrombosed 10/10/2019 08/2 10/2023 Idiopathic peripheral neuropathy 10/10/2019 11/17/2023 Nephrolithiasis 10/10/2019 12/24/2020 Encounters Date Type Department Care Team Description 06/13/2024 MyChart Message Enc [address] [phone] Germaine Mckeon, COMMUNITY OUTREACH SPECIALIST Strep test 06/07/2024 12:20 PM CDT Office Visit [address] [phone] Germaine Mckeon, COMMUNITY OUTREACH SPECIALIST Cyst (On left hand middle finger) 06/07/2024 Travel 05/05/[address] [phone] Cesar Leon, DO Appointment Request 04/28/[address] [phone] Cesar Leon, DO Referral 04/14/2024 MyChart Message Enc [address] [phone] Cesar Leon, DO Sloandomi cedeno from Last 3 Months Immunizations Name Administration Dates Next Due Flucelvax 2 YRS+ (Multi-Dose Vial) 12/03/2021 Fluzone 6 Months+ Quad (0.5 mL Prefilled Syringe) 01/04/2020 Hepatitis A/Hepatitis B(Twinrix) 01/08/2009,03/11/2008,01/03/2007 Influenza (Generic) 12/15/2020,12/08/2011,2011 Influenza Adult (Generic) 12/08/2022,,01/15/2018,2013 MMR (MMRII) 12/20/1993,11/20/1990 MODERNA COVID-19 (12+) MRNA, LNP-S, PF, 100 MCG/ 0.5 ML DOSE 12/15/2020,05/03/2020,04/05/2020 Pneumococcal (Prevnar 13) 02/21/2020 Pneumococcal (Prevnar 20) 10/07/2022 Shingrix 02/19/2023,12/08/2022 Tdap (Generic) 05/25/2008 Family History Medical History Relation Comments Asthma Father COPD Father Arthritis Maternal Grandmother Diabetes Maternal Grandmother Heart Disease Maternal Grandmother Kidney Disease Maternal Grandmother Alcohol Abuse Mother Cancer Mother Breast camcer Colon Cancer Mother Hypertension Mother Rectal cancer Mother Cardiovascular Disease Other gastroparesis Sister Relation Status Comments Brother Father Maternal Grandmother Mother Other Paternal Grandmother Sister Alive Social History Tobacco Use Types Packs/Day Years Used Date Smoking Tobacco: Former Cigarettes 1 986 - 03/22/2016 Passive Smoke Exposure: Past Smokeless Tobacco: Never Tobacco Cessation:Counseling Given: No Comments:Stopped 5 years ago Alcohol Use Standard [...] Sex Assigned at Female 05/10/2019 11:42 AM ADVERTISING DISPATCH CLERKS SUPERVISOR Legal Sex Female 4:46 PM CDT Gender Identity Female 05/10/2019 11:42 AM ADVERTISING DISPATCH CLERKS SUPERVISOR Sexual Orientation Straight 05/10/2019 11 :42 AM ADVERTISING DISPATCH CLERKS SUPERVISOR 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 Not on file Not on file Last Filed Vital Signs Vital Sign Reading Time Taken Comments Blood Pressure 126/89 06/07/2024 12:14 PM CDT Pulse 76 06/07/2024 12:14 PM CDT Temperature 37.2 C (98.9 F) 06/07/2024 12:14 PM CDT Respiratory Rate 18 11/25/2023 11:40 AM CDT Oxygen Saturation 99% 06/07/2024 12:14 PM CDT Inhaled Oxygen Concentration - - Weight 67.3 kg (148 lb 6.4 oz) 06/07/2024 12:14 PM CDT Height 154.9 cm (5' 1 ) 06/07/2024 12:14 PM CDT Body Mass Index 28.04 06/07/2024 12:14 PM CDT Plan of Treatment Upcoming Encounters Date Type Department Care Team (Late st Contact Info) Description 06/14/2024 7:20 AM CDT Office Visit [facility] Multispecialty Care - [facility] [address] [facility], [address] [place] [address] Any Shaver MD 3 [place] [address] 06/20/2024 1:00 PM CDT Office Visit [facility] Orthopedic & Sports Medicine - [place] [address] [place], [place] [address] Ryan Strange NP [address] [place], [place] [phone] 11/23/2024 1:00 PM CDT Office Visit [facility] Family Medicine [facility] 5 [place] [address] Cesar Leon DO 5 [place] [address] Health Maintenance Due Date Last Done Comments Hepatitis C 1988 COVID-19 Vaccine ( season) 2023 12/15/2020, 05/03/2020, 04/05/2020 Influenza Adult (#1) 2023 12/08/2022, 12/03/2021, 12/15/2020, Additional history exists Annual Physical 11/16/2024 11/17/2023, 12/19/2020 Mammogram Screening 01/02/2025 01/03/2024, 12/30/2022, 08/20/2021, Additional history exists DTaP, Tdap and Td Vaccines (2 - Td or Tdap) 02/18/2029 05/25/2008 Postponed from 05/25/2018 (Per Provider Recommendation) Colorectal Cancer Screening Colonoscopy (10 Years) 12/27/2030 12/27/2020, 12/27/2020, 11/07/2014 Hepatitis B Vaccines Completed 01/08/2009, 05/28/2008, 01/03/2007 Pneumococcal Vaccine: Pediatrics (0 to 5 Years) and At-Risk Patients (6 to 64 Years) Aged Out 10/07/2022, 02/21/2020 No longer eligibl e based on patient's age to complete this topic Zoster Vaccines Completed 02/19/2023, 12/08/2022 PHQ-2 (Physician Gackle) Completed 06/07/2024 Meningococcal B Vaccine Aged Out No l onger eligible based on patient's age to complete this topic Meningococcal Vaccine Aged Out No krista qi eligible based on patient's age to complete this topic RSV Immunizations Under 20 Months Aged Out No longer eligible based on patient's age to complete this topic Procedures Procedure Name Priority Date/Time Associated Diagnosis Comments MG SCREENING W IRIS TRISTON DIGI Routine 01/03/2024 1:30 PM CDT Screening mammogram for breast cancer COLONOSCOPY Routine 12/27/2020 9:38 AM CDT from Last 3 Months or Most Recently Relevant to Health Maintenance Results * MG SCREENING W IRIS TRISTON DIGI (01/03/2024 1:30 PM CDT) Anatomical Region Laterality Modality Breast Bilateral Mammography 01/03/2024 4:13 PM CDT Impressions 01/03/2024 4:19 PM CDT ===== IMPRESSION: ===== 1. Stable mammographic appearance with no new findings to suggest malignancy in either breast. Assessment: ACR BI-RADS 2 - BENIGN FINDING(S) Recommendation: 1:Routine Screening Bilateral Comments: Ordered By: CESAR LEON Interpreted By: Omaira Matthews, 01/03/2024 4:13 PM Narrative 01/03/2024 4:19 PM CDT [facility] [address] [place] [address] EXAMINATION: Digital bilateral screening mammogram with 3-D tomosynthesis EXAM DATE/TIME: 01/03/2024 1:17 PM REASON FOR EXAM: Screening mammogram Mother with breast carcinoma. COMPARISON: 12/30/2022. 08/20/2021 Technique: Digital screening mammography of both breasts was performed in addition to 3-D Tomosynthesis technique. This study was read with the assistance of a computer-aided detection system. Tissue density: There are scattered areas of fibroglandular density. Findings: There is no new focal asymmetry, dominant mass lesion, area of skin thickening, or cluster of suspicious appearing calcifications in either breast to suggest malignancy. Cesar Leon DO MAMMO Final Resul t * Colonoscopy (11/07/2014 12:00 AM CDT) 11/07/2014 11/07/2014 Narrative [facility] TO EPIC CONVERSION - 11/07/2014 12:00 AM CDT Documented hx of procedure Procedure Note Jeo Haywood MD - 01/23/2018 Documented hx of procedure Generic Conversion Md [facility] PROCEDURE ORDERABLES Final Result [facility] TO EP[facility] CONVERSION from Last 3 Months or Most Recently Relevant to Health Maintenance Insurance [facility] Care Teams Fire Alarm Operator Relationship Specialty Start Date End Date Cesar Leon [place] [address] PCP - General 09/16/22 Adam Nielsen MD Referring Physician RHEUMATOLOGY 12/19/20 Gage Pham MD [facility], [address] [place] [address] Physician CARDIOVASCULAR DISEASE 12/19/20
--- OUTSIDE RECORDS SUMMARY | 2024-06-13 11:33 | XMS_ITS | Encounter Summary ---
Author Organization [facility] Address [facility] [place] [address] Care Team Providers Care Resident Advisor Name Role Phone Blair Wheatley MD Unavailable [phone] aMck Edwards MD Primary Care Provider [phone] Adam Nielsen MD Unavailable Unavailable Gage Pham MD Unavailable [phone] Sara Mansfield [facility] Primary Care Provider + Sidney Leon DO Primary Care Provider [phone] Encounter Details Date Type Department Care Team (Late st Contact Info) Description 12/29/2019 [employer] Message Enc [facility] Medical Group Family & Internal Medicine [address] [address] Sara Mansfield [address] [address] Test Results Social History Tobacco Use Types Packs/Day Years Used Date Smoking Tobacco: Former Cigarettes Smokeless Tobacco: Never Comments:quit 12/07/16 Alcohol Use Standard Drinks/Week Comments Yes 0 (1 standard drink = 0.6 oz pur e alcohol) very little PHQ-2 Answer Date Recorded PHQ-2 Score 0 09/05/2019 Comments No Sex and Gender Information Value Date Recorded Sex Assigned at Female 05/10/2019 11:42 AM RESEARCH/PROGRAM DIRECTOR Legal Sex Female 4:46 PM CDT Gender Identity Female 05/10/2019 11:42 AM RESEARCH/PROGRAM DIRECTOR Sexual Orientation Straight 05/10/2019 11 :42 AM RESEARCH/PROGRAM DIRECTOR 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 No / Unsure 12/28/2019 6:50 AM CDT documented as of this encounter Progress Notes * Eun Austin RN - 12/29/2019 10:22 AM CDT Patient called and informed regarding lab tests-that Hgb is WNL documented in this encounter Plan of Treatment Upcoming Encounters Date Type Department Care Team (Late st Contact Info) Description 06/14/2024 7:20 AM CDT Office Visit [facility] Multispecialty Care - [facility] [address] [facility], [address] [place] [address] Any Shaver MD [address] [place] [address] 06/20/2024 1:00 PM CDT Office Visit [facility] Orthopedic & Sports Medicine - [place] [address] [place] [address] Ryan Strange NP [address] [place] [address] 11/23/2024 1:00 PM CDT Office Visit [facility] Family Medicine [facility] [address] [facility] [place] [address] [place] [address] documented as of this encounter Visit Diagnoses Not on filedocumented in this encounter Care Teams Resident Advisor Relationship Specialty [place] [address] [place] [address] PCP - General FAMILY PRACTICE 12/10/16 12/18/20 Sara Mansfield, [facility] Three [facility], [address] [place], [place] [address] PCP - General Nurse Practitioner Family 12/19/20 09/15/22 [place] [address] PCP - General 09/16/22 Blair Wheatley MD Three [facility] [address] [place] [address] [employer] Equipment Planner CARDIOVASCULAR DISEASE 12/10/16 12/18/20 [place] [address] [place] [address] Referring Physician RHEUMATOLOGY 12/19/20 Gage Pham MD [facility], [address] [place] [address] Physician CARDIOVASCULAR DISEASE 12/19/20 documented as of this encounter
--- OUTSIDE RECORDS SUMMARY | 2024-06-13 11:33 | XMS_ITS | Encounter Summary ---
Author Organization [facility] Address [facility] [place] [address] Care Team Providers Care Film Processor Name Role Phone Adam Nielsen MD Unavailable Unavailable Gage Pham MD Unavailable [phone] Sara Mansfield [facility] Primary Care Provider + Sidney Leon DO Primary Care Provider [phone] Encounter Details Date Type Department Care Team (Late st Contact Info) Description 12/20/2020 [email or web address] Message Enc [facility] Medical Group Family & Internal Medicine [address] [address] Sara Mansfield [address] [address] RE: Medication Questions Social History Tobacco Use Types Packs/Day Years Used Date Smoking Tobacco: Former Cigarettes 2016 Smokeless Tobacco: Never Comments:Stopped 4 years ago Alcohol Use Standard Drinks/Week Comments [...] please move on to questions 3-9 0 12/19/2020 Comments No Sex and Gender Information Value Date Recorded Sex Assigned at Female 05/10/2019 11:42 AM SETTLEMENT TECHNICIAN Legal Sex Female 4:46 PM CDT Gender Identity Female 05/10/2019 11:42 AM SETTLEMENT TECHNICIAN Sexual Orientation Straight 05/10/2019 11 :42 AM SETTLEMENT TECHNICIAN 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 No / Unsure 12/23/2020 6:26 PM CDT documented as of this encounter Plan of Treatment Upcoming Encounters Date Type Department Care Team (Late st Contact Info) Description 06/14/2024 7:20 AM CDT Office Visit [facility] Multispecialty Care - [address], [address] [place] [address] Any Shaver MD [address] [place] [address] 06/20/2024 1:00 PM CDT Office Visit [facility] Orthopedic & Sports Medicine - [place] [address] [place] [address] Ryan Strange NP [address] [facility] [place] [address] 11/23/2024 1:00 PM CDT Office Visit [facility] Medical Group Family Medicine - [place] [address] [place] [address] Sidney Leon DO [address] [place] [address] documented as of this encounter Visit Diagnoses Not on filedocumented in this encounter Additional Health Concerns Assessment Noted Time PHQ-9 Depression Total Score: 4 12/20/19 21 8:53 AM CDT documented as of this encounter Care Teams Film Processor Relationship Specialty Start Date End Date Sara Mansfield FNP-BC [facility], [address] [place] [id number] PCP - General Nurse Practitioner [facility] 12/19/20 09/15/22 Sidney Leon DO [address] [place] [address] [place] [address] PCP - General 09/16/22 Adam Nielsen MD Referring Physician RHEUMATOLOGY 12/19/20 Gage Pham MD [facility], [address] [place] [address] Physician CARDIOVASCULAR DISEASE 12/19/20 documented as of this encounter
--- OUTSIDE RECORDS SUMMARY | 2024-06-13 11:33 | XMS_ITS | Encounter Summary ---
Author Organization [facility] Address [facility] [place] [address] Care Team Providers Care Etcher Apprentice Photoengraving Name Role Phone Blair Wheatley MD Unavailable [phone] Mack Edwards MD Primary Care Provider [phone] Adam Nielsen MD Unavailable Unavailable Gage Pham MD Unavailable [phone] Sara Mansfield [facility] Primary Care Provider + Sidney Leon DO Primary Care Provider [phone] Encounter Details Date Type Department Care Team (Late st Contact Info) Description 04/28/2018 Technologie BiolActist Message Enc [facility] Medical Group Family & Internal Medicine [address] [address] Mack Edwards MD [address] [place] [address] RE: Test Results Social History Tobacco Use Types Packs/Day Years Used Date Smoking Tobacco: Former Cigarettes Smokeless Tobacco: Never Comments:quit 12/07/16 Alcohol Use Standard Drinks/Week Comments Yes 0 (1 standard drink = 0.6 oz pur e alcohol) very little Comments Unknown Sex and Gender Information Value Date Recorded Sex Assigned at Female 05/10/2019 11:42 AM BREAD JOCKEY Legal Sex Female 4:46 PM CDT Gender Identity Female 05/10/2019 11:42 AM BREAD JOCKEY Sexual Orientation Straight 05/10/2019 11 :42 AM BREAD JOCKEY documented as of this encounter Progress Notes * Rosa Henry RN - 04/29/2018 12:[address] Edwards, kidney US normal. Called pt and informed her of this. She v/u. D JOCKEY documented in this encounter Plan of Treatment Upcoming Encounters Date Type Department Care Team (Late st Contact Info) Description 06/14/2024 7:20 AM CDT Office Visit [facility] Multispecialty Care - [facility] 3 [facility], [address] [place] [address] Any Shaver MD 3 [place] [address] 06/20/2024 1:00 PM CDT Office Visit [facility] Orthopedic & Sports Medicine - [place] [address] [place] [address] Ryan Strange, TELEGRAPH SERVICE RATER [address] [place] [address] 11/23/2024 1:00 PM CDT Office Visit [facility] Family Medicine - [place] 5 [place] [address] Sidney Leon DO 5 [place] [address] documented as of this encounter Visit Diagnoses Not on filedocumented in this encounter Care Teams Etcher Apprentice Photoengraving Relationship Specialty [place] [address] [place] [address] PCP - General FAMILY PRACTICE 12/10/16 12/18/20 Sara Mansfield FNP- Three [facility] [address] [place] [address] PCP - General Nurse Practitioner Family 12/19/20 09/15/22 Sidney Leon DO [place] [id number] PCP - General 09/16/22 Blair Wheatley MD Three [facility]. [address] [place] [address] [place] Resident Program Specialist CARDIOVASCULAR DISEASE 12/10/16 12/18/20 [place] [address] [place] [address] Referring Physician RHEUMATOLOGY 12/19/20 Gage Pham MD Three [facility]., [address] [place] [address] Physician CARDIOVASCULAR DISEASE 12/19/20 documented as of this encounter
--- OUTSIDE RECORDS SUMMARY | 2024-06-13 11:33 | XMS_ITS | Encounter Summary ---
Author Organization [facility] Address [facility] [place] [address] Care Team Providers Care Pneumatic Jacketer Name Role Phone Blair Wheatley MD Unavailable [phone] Mack Edwards MD Primary Care Provider [phone] Adam Nielsen MD Unavailable Unavailable Gage Pham MD Unavailable [phone] [facility] Primary Care Provider + Sidney Leon DO Primary Care Provider [phone] Encounter Details Date Type Department Care Team (Late st Contact Info) Description 04/01/2019 MyCCitus Datat Message Enc [facility] Medical Group Family & Internal Medicine [address] [address] Sara Mansfield [address] [address] RE: Medication Questions Social History Tobacco Use Types Packs/Day Years Used Date Smoking Tobacco: Former Cigarettes Smokeless Tobacco: Never Comments:quit 12/07/16 Alcohol Use Standard Drinks/Week Comments Yes 0 (1 standard drink = 0.6 oz pur e alcohol) very little Comments No Sex and Gender Information Value Date Recorded Sex Assigned at Female 05/10/2019 11:42 AM RESTROOMS OR LOUNGES MAID Legal Sex Female 4:46 PM CDT Gender Identity Female 05/10/2019 11:42 AM RESTROOMS OR LOUNGES MAID Sexual Orientation Straight 05/10/2019 11 :42 AM RESTROOMS OR LOUNGES MAID documented as of this encounter Progress Notes * Cindi Lion RN - 04/01/2019 8:57 AM CST Please advise. ROOMS OR LOUNGES MAID documented in this encounter Plan of Treatment Upcoming Encounters Date Type Department Care Team (Late st Contact Info) Description 06/14/2024 7:20 AM CDT Office Visit [facility] Multispecialty Care - [facility] 3 [facility], [address] [place] [address] Any Shaver MD 3 [place] [address] 06/20/2024 1:00 PM CDT Office Visit [facility] Orthopedic & Sports Medicine - [place] [address] [place], [place] [phone] Ryan Strange, LIP AND GATE BUILDER [address] [place] [address] 11/23/2024 1:00 PM CDT Office Visit [facility] Family Medicine - [place] 5 [place] [address] Sidney Leno, 5 [place] [address] documented as of this encounter Visit Diagnoses Not on filedocumented in this encounter Care Teams Pneumatic Jacketer Relationship Specialty [place] [address] [place] [address] PCP - General FAMILY PRACTICE 12/10/16 12/18/20 Sara Mansfield, PROPELLER ENGINEER- Three [facility] [address] [place] [address] PCP - General Nurse Practitioner Family 12/19/20 09/15/22 [place] [address] PCP - General 09/16/22 Blair Wheatley MD Three [facility]. [address] [address] [facility] Nurse Spec CARDIOVASCULAR DISEASE 12/10/16 12/18/20 [place] [address] [place] [address] Referring Physician RHEUMATOLOGY 12/19/20 Gage Pham MD [facility]., [address] [place] [address] Physician CARDIOVASCULAR DISEASE 12/19/20 documented as of this encounter
--- OUTSIDE RECORDS SUMMARY | 2024-06-13 11:33 | XMS_ITS | Encounter Summary ---
Author Organization [facility] Address [facility] [place] [address] Care Team Providers Care Welder Apprentice Arc Name Role Phone Blair Wheatley MD Unavailable [phone] Mack Edwards MD Primary Care Provider [phone] Adam Nielsen MD Unavailable Unavailable Gage Pham MD Unavailable [phone] Sara Mansfield [facility] Primary Care Provider + Sidney Leon DO Primary Care Provider [phone] Encounter Details Date Type Department Care Team (Late st Contact Info) Description 04/18/2020 MyCProtein Bart Message Enc [facility] Medical Group Family & Internal Medicine [address] [address] Sara Mansfield [address] [address] RE: Question Social History Tobacco Use Types Packs/Day Years Used Date Smoking Tobacco: Former Cigarettes Smokeless Tobacco: Never Comments:quit 12/07/16 Alcohol Use Standard Drinks/Week Comments Yes 0 (1 standard drink = 0.6 oz pur e alcohol) very little PHQ-2 Answer Date Recorded PHQ-2 Score 0 09/05/2019 Comments No Sex and Gender Information Value Date Recorded Sex Assigned at Female 05/10/2019 11:42 AM SUPERVISOR HANGING AND TRIMMING Legal Sex Female 4:46 PM CDT Gender Identity Female 05/10/2019 11:42 AM SUPERVISOR HANGING AND TRIMMING Sexual Orientation Straight 05/10/2019 11 :42 AM SUPERVISOR HANGING AND TRIMMING 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 No / Unsure 04/04/2020 10:31 AM SUPERVISOR HANGING AND TRIMMING documented as of this encounter Plan of Treatment Upcoming Encounters Date Type Department Care Team (Late st Contact Info) Description 06/14/2024 7:20 AM CDT Office Visit [facility] Mult[facility]pecialty Care - [facility] 3 [facility], [address] [place] [address] Any Shaver MD 3 [place] [address] 06/20/2024 1:00 PM CDT Office Visit [facility] Orthopedic & Sports Medicine - [place] [address] [place] [address] Ryan Strange, JIG BUILDER [address] [place], [place] [address] 11/23/2024 1:00 PM CDT Office Visit [facility] Family Medicine - [place] 5 [place] [address] Sidney Leon DO 5 [place] [address] documented as of this encounter Visit Diagnoses Not on filedocumented in this encounter Care Teams Welder Apprentice Arc Relationship Specialty [place] [address] [place] [address] PCP - General FAMILY PRACTICE 12/10/16 12/18/20 Sara Mansfield, [facility] Three [facility] [address] [place] [address] PCP - General Nurse Practitioner Family 12/19/20 09/15/22 Sidney Leon DO [address] [place] [id number] PCP - General 09/16/22 Blair Wheatley MD Three [facility]. [address] [place] [address] [place] Manager Trading CARDIOVASCULAR DISEASE 12/10/16 12/18/20 [place] [address] [place] [address] Referring Physician RHEUMATOLOGY 12/19/20 Gage Pham MD [facility] [address] [place] [address] Physician CARDIOVASCULAR DISEASE 12/19/20 documented as of this encounter
--- OUTSIDE RECORDS SUMMARY | 2024-06-13 11:33 | XMS_ITS | Encounter Summary ---
Author Organization [facility] Address [facility] [place] [address] Care Team Providers Care Lead Maintenance Technician Name Role Phone Blair Wheatley MD Unavailable [phone] Mack Edwards MD Primary Care Provider [phone] Adam Nielsen MD Unavailable Unavailable Gage Pham MD Unavailable [phone] Sara Mansfield [facility] Primary Care Provider + Sidney Leon DO Primary Care Provider [phone] Encounter Details Date Type Department Care Team (Late st Contact Info) Description 12/14/2019 MyCSynthacet Message Enc [facility] [place] Medical Group Family & Internal Medicine [address] [address] Sara Mansfield [address] [address] RE: Referral Request Social History Tobacco Use Types Packs/Day Years Used Date Smoking Tobacco: Former Cigarettes Smokeless Tobacco: Never Comments:quit 12/07/16 Alcohol Use Standard Drinks/Week Comments Yes 0 (1 standard drink = 0.6 oz pur e alcohol) very little PHQ-2 Answer Date Recorded PHQ-2 Score 0 09/05/2019 Comments No Sex and Gender Information Value Date Recorded Sex Assigned at Female 05/10/2019 11:42 AM PATIENT INTAKE REPRESENTATIVE Legal Sex Female 4:46 PM CDT Gender Identity Female 05/10/2019 11:42 AM PATIENT INTAKE REPRESENTATIVE Sexual Orientation Straight 05/10/2019 11 :42 AM PATIENT INTAKE REPRESENTATIVE 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 No / Unsure 12/12/2019 4:08 PM CDT documented as of this encounter Plan of Treatment Upcoming Encounters Date Type Department Care Team (Late st Contact Info) Description 06/14/2024 7:20 AM CDT Office Visit [facility] Multispecialty Care - [facility] 3 [facility], [address] [place] [address] Any Shaver MD 3 [place] [address] 06/20/2024 1:00 PM CDT Office Visit [facility] Orthopedic & Sports Medicine - [place] [address] [place] [address] Ryan Strange, BOBBY [address] [place], [place] [address] 11/23/2024 1:00 PM CDT Office Visit [facility] Family Medicine - [place] 5 [place] [address] Sidney Leon DO [address] [place] [address] documented as of this encounter Visit Diagnoses Diagnosis Generalized joint pain- Primary documented in this encounter Care Teams Lead Maintenance Technician Relationship Specialty [place] [address] [place] [address] PCP - General FAMILY PRACTICE 12/10/16 12/18/20 Sara Mansfield, [facility] Three [facility] [address] [place] [address] PCP - General Nurse Practitioner Family 12/19/20 09/15/22 Sidney Leon DO [address] [place] [id number] PCP - General 09/16/22 Blair Wheatley MD Three [facility]. [address] [place] [address] [place] [employer] Risk And Assurance Manager CARDIOVASCULAR DISEASE 12/10/16 12/18/20 [place] [address] [place] [address] Referring Physician RHEUMATOLOGY 12/19/20 Gage Pham MD [facility] [address] [place] [address] Physician CARDIOVASCULAR DISEASE 12/19/20 documented as of this encounter
--- OUTSIDE RECORDS SUMMARY | 2024-06-13 11:33 | XMS_ITS | Encounter Summary ---
Author Organization [facility] Address [facility] [place] [address] Care Team Providers Care Manager Mental Health Name Role Phone Blair Wheatley MD Unavailable [phone] Mack Edwards MD Primary Care Provider [phone] Adam Nielsen MD Unavailable Unavailable Gage Pham MD Unavailable [phone] Sara Mansfield [facility] Primary Care Provider + Sidney Leon DO Primary Care Provider [phone] Encounter Details Date Type Department Care Team (Late st Contact Info) Description 01/03/2020 Kymeta Message Enc [facility] Medical Group Family & Internal Medicine [address] [address] Sara Mansfield [address] [address] RE: Question Social History Tobacco [...] Sex Assigned at Female 05/10/2019 11:42 AM CUSTOM HOME INSTALLER Legal Sex Female 4:46 PM CDT Gender Identity Female 05/10/2019 11:42 AM CUSTOM HOME INSTALLER Sexual Orientation Straight 05/10/2019 11 :42 AM CUSTOM HOME INSTALLER 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 No / Unsure 01/04/2020 1:43 PM CDT documented as of this encounter Plan of Treatment Upcoming Encounters Date Type Department Care Team (Late st Contact Info) Description 06/14/2024 7:20 AM CDT Office Visit [facility] Mult[facility]pecialty Care - [facility] 3 [facility], [address] [place] [address] Any Shaver MD 3 [place] [address] 06/20/2024 1:00 PM CDT Office Visit [facility] Orthopedic & Sports Medicine - [place] [address] [place] [address] Ryan Strange, BIOMASS POWER PLANT SUPERINTENDENT [address] [place] [address] 11/23/2024 1:00 PM CDT Office Visit [facility] Family Medicine - [place] 5 [place] [address] Sidney Leon DO 5 [place] [address] documented as of this encounter Visit Diagnoses Not on filedocumented in this encounter Care Teams Manager Mental Health Relationship Specialty [place] [address] [place] [address] PCP - General FAMILY PRACTICE 12/10/16 12/18/20 Sara Mansfield FNP- Three [facility] [address] [place] [address] PCP - General Nurse Practitioner Family 12/19/20 09/15/22 Sidney Leon DO [place], [place] [id number] PCP - General 09/16/22 Blair Wheatley MD Three [facility]. [address] [place] [address] [place] Knitting Machine Operator CARDIOVASCULAR DISEASE 12/10/16 12/18/20 [place] [address] [place] [address] Referring Physician RHEUMATOLOGY 12/19/20 Gage Pham MD Three [facility] [address] [place] [address] Physician CARDIOVASCULAR DISEASE 12/19/20 documented as of this encounter
--- OUTSIDE RECORDS SUMMARY | 2024-06-13 11:33 | XMS_ITS | Encounter Summary ---
Author Organization [facility] Address [facility] [place] [address] Care Team Providers Care Clam Bed Worker Name Role Phone Adam Nielsen MD Unavailable Unavailable Gage Pham MD Unavailable [phone] Sara Mansfield [facility] Primary Care Provider + Sidney Leon DO Primary Care Provider [phone] Encounter Details Date Type Department Care Team (Late st Contact Info) Description 03/28/2021 MyCCarmenta Biosciencet Message Enc [facility] Medical Group Family & Internal Medicine [address] [address] Sara Mansfield [place] [address] [place] [address] Question regarding MRI LUMB SPINE WO CON Social History Tobacco Use Types Packs/Day Years Used Date Smoking Tobacco: Former Cigarettes 2016 Smokeless Tobacco: Never Comments:Stopped 5 years ago [...] Sex Assigned at Female 05/10/2019 11:42 AM RADIOLOGICAL METALLURGIST Legal Sex Female 4:46 PM CDT Gender Identity Female 05/10/2019 11:42 AM RADIOLOGICAL METALLURGIST Sexual Orientation Straight 05/10/2019 11 :42 AM RADIOLOGICAL METALLURGIST 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 No / Unsure 03/25/2021 1:30 PM RADIOLOGICAL METALLURGIST documented as of this encounter Progress Notes * RUDDY Snyder - 04/01/2021 12:07 PM CST Sent a message to patient via [employer] regarding results OLOGICAL METALLURGIST * Cindi Lion RN - 03/28/2021 1:57 PM CST Results is now completed. OLOGICAL METALLURGIST * Cindi Lion RN - 03/28/2021 11:46 AM CST Called and spoke with Sada at [facility] and she will look into this. OLOGICAL METALLURGIST * RUDDY Snyder - 03/28/2021 11:22 AM CST Can we check into why the result is not back yet on the c-spine CT OLOGICAL METALLURGIST documented in this encounter Plan of Treatment Upcoming Encounters Date Type Department Care Team (Late st Contact Info) Description 06/14/2024 7:20 AM CDT Office Visit [facility] Medical Group Multispecialty Care - [address], [address] [place] [address] Any Shaver MD 3 [place] [address] 06/20/2024 1:00 PM CDT Office Visit [facility] Orthopedic & Sports Medicine [facility] [address] [place] [address] Ryan Strange NP [address] [place] [address] 11/23/2024 1:00 PM CDT Office Visit [facility] 5 [facility] [address] Sidney Leon DO [address] [place] [address] [place], [place] [id number] documented as of this encounter Visit Diagnoses Not on filedocumented in this encounter Additional Health Concerns Assessment Noted Time PHQ-9 Depression Total Score: 4 12/20/19 21 8:53 AM CDT documented as of this encounter Care Teams Clam Bed Worker Relationship Specialty Start Date End Date Sara Mansfield [facility], [address] [place] [address] PCP - General Nurse Practitioner Family 12/19/20 09/15/22 Sidney Leon DO [address] [place] [address] [place] [address] PCP - General 09/16/22 Adam Nielsen MD Referring Physician RHEUMATOLOGY 12/19/20 Gage Pham MD [facility], [address] [place] [address] Physician CARDIOVASCULAR DISEASE 12/19/20 documented as of this encounter
--- OUTSIDE RECORDS SUMMARY | 2024-06-13 11:33 | XMS_ITS | Encounter Summary ---
Author Organization [facility] Address [facility] [place] [address] Care Team Providers Care Precision Instrument Maker And Repairer Name Role Phone Blair Wheatley MD Unavailable [phone] Mack Edwards MD Primary Care Provider [phone] Adam Nielsen MD Unavailable Unavailable Gage Pham MD Unavailable [phone] Sara Mansfield [facility] Primary Care Provider + Sidney Leon DO Primary Care Provider [phone] Encounter Details Date Type Department Care Team (Late st Contact Info) Description 09/05/2019 [employer] Message Enc [facility] Medical Group Family & Internal Medicine [facility] [id number] [place] [address] Diana Carranza, PA [address] [place] [address] RE: Other Social History Tobacco Use Types Packs/Day Years Used Date Smoking Tobacco: Former Cigarettes Smokeless Tobacco: Never Comments:quit 12/07/16 Alcohol Use Standard Drinks/Week Comments Yes 0 (1 standard drink = 0.6 oz pur e alcohol) very little PHQ-2 Answer Date Recorded PHQ-2 Score 0 09/05/2019 Comments No Sex and Gender Information Value Date Recorded Sex Assigned at Female 05/10/2019 11:42 AM GOLF BALL INSPECTOR Legal Sex Female 4:46 PM CDT Gender Identity Female 05/10/2019 11:42 AM GOLF BALL INSPECTOR Sexual Orientation Straight 05/10/2019 11 :42 AM GOLF BALL INSPECTOR 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 No / Unsure 09/05/2019 12:27 PM CDT documented as of this encounter Plan of Treatment Upcoming Encounters Date Type Department Care Team (Late st Contact Info) Description 06/14/2024 7:20 AM CDT Office Visit [facility] Multispecialty Care - [facility] 3 [facility], [address] [place] [address] Any Shaver MD 3 [place] [address] 06/20/2024 1:00 PM CDT Office Visit [facility] Orthopedic & Sports Medicine - [place] [address] [place], [place] [phone] Ryan Strange, BOBBY [address] [place], [place] [address] 11/23/2024 1:00 PM CDT Office Visit [facility] Family Medicine - [place] 5 [place] [address] Sidney Leon DO 5 [place] [address] documented as of this encounter Visit Diagnoses Not on filedocumented in this encounter Care Teams Precision Instrument Maker And Repairer Relationship Specialty Start [place] [address] [place] [address] PCP - General FAMILY PRACTICE 12/10/16 12/18/20 Sara Mansfield, [facility] Three [facility] [address] [place] [address] PCP - General Nurse Practitioner Family 12/19/20 09/15/22 Sidney Leon DO [address] [place] [id number] PCP - General 09/16/22 Blair Wheatley MD Three [facility]. [address] [place] [address] [place] Neon Molder CARDIOVASCULAR DISEASE 12/10/16 12/18/20 [place] [address] [place] [address] Referring Physician RHEUMATOLOGY 12/19/20 Gage Pham MD [facility] [address] [place] [address] Physician CARDIOVASCULAR DISEASE 12/19/20 documented as of this encounter
--- OUTSIDE RECORDS SUMMARY | 2024-06-13 11:33 | XMS_ITS | Encounter Summary ---
Author Organization [facility] Address [facility] [place] [address] Care Team Providers Care Automatic Clipper Name Role Phone Blair Wheatley MD Unavailable [phone] Mack Edwards MD Primary Care Provider [phone] Adam Nielsen MD Unavailable Unavailable Gage Pham MD Unavailable [phone] [facility] Primary Care Provider + Sidney Leon DO Primary Care Provider [phone] Encounter Details Date Type Department Care Team (Late st Contact Info) Description 11/02/2019 [employer] Message Enc [facility] Medical Group Family & Internal Medicine [address] [address] Sara Mans[address] [address] Test Results Social History Tobacco [...] Sex Assigned at Female 05/10/2019 11:42 AM TELETYPE OR VARITYPE KEYBOARD OPERATOR Legal Sex Female 4:46 PM CDT Gender Identity Female 05/10/2019 11:42 AM TELETYPE OR VARITYPE KEYBOARD OPERATOR Sexual Orientation Straight 05/10/2019 11 :42 AM TELETYPE OR VARITYPE KEYBOARD OPERATOR 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 No / Unsure 10/31/2019 2:29 PM CDT documented as of this encounter Progress Notes * RUDDY Snyder - 11/02/2019 10:08 AM CDT Spoke to Teresa. Please see telephone encounter 11/02/2019 * Eun Austin RN - 11/02/2019 8:15 AM CDT Advise? documented in this encounter Plan of Treatment Upcoming Encounters Date Type Department Care Team (Late st Contact Info) Description 06/14/2024 7:20 AM CDT Office Visit [facility] Multispecialty Care - [facility] [address] [facility], [address] [place] [address] Any Shaver MD 3 [place] [address] 06/20/2024 1:00 PM CDT Office Visit [facility] Medical Group Orthopedic & Sports Medicine - [place] [address] [place] [address] Ryan Strange NP 670 [facility] [place] [address] 11/23/2024 1:00 PM CDT Office Visit [facility] Family Medicine - [place] 5 [place] [address] Sidney Leon DO [address] [place] [address] documented as of this encounter Visit Diagnoses Not on filedocumented in this encounter Care Teams Automatic Clipper Relationship Specialty [place] [address] [place] [address] PCP - General FAMILY PRACTICE 12/10/16 12/18/20 Sara Mansfield, [facility], [address] [place] [id number] PCP - General Nurse Practitioner Family 12/19/20 09/15/22 Sidney Leon DO [address] [place] [address] PCP - General 09/16/22 Blair Wheatley MD [facility] TOM [address] [place] [address] [place] Security Operations Analyst CARDIOVASCULAR DISEASE 12/10/16 12/18/20 [place] [address] [place] [address] Referring Physician RHEUMATOLOGY 12/19/20 Gage Pham MD [facility], Suite [facility] [place] [address] Physician CARDIOVASCULAR DISEASE 12/19/20 documented as of this encounter
--- OUTSIDE RECORDS SUMMARY | 2024-06-13 11:33 | XMS_ITS | Encounter Summary ---
Author Organization [facility] Address [facility] [place] [address] Care Team Providers Care Wood Boatbuilder Apprentice Name Role Phone Blair Wheatley MD Unavailable [phone] Mack Edwards MD Primary Care Provider [phone] Adam Nielsen MD Unavailable Unavailable Gage Pham MD Unavailable [phone] Sara Mansfield [facility] Primary Care Provider + Sidney Leon DO Primary Care Provider [phone] Encounter Details Date Type Department Care Team (Late st Contact Info) Description 07/10/[address] [facility] Medical Group Family & Internal Medicine [address] [address] Mack Edwards MD [address] [place] [address] RE: Question Social History Tobacco Use Types Packs/Day Years Used Date Smoking Tobacco: Former Cigarettes Smokeless Tobacco: Never Comments:quit 12/07/16 Alcohol Use Standard Drinks/Week Comments Yes 0 (1 standard drink = 0.6 oz pur e alcohol) very little Comments No Sex and Gender Information Value Date Recorded Sex Assigned at Female 05/10/2019 11:42 AM BLOW MOULDING MACHINE OPERATOR Legal Sex Female 4:46 PM CDT Gender Identity Female 05/10/2019 11:42 AM BLOW MOULDING MACHINE OPERATOR Sexual Orientation Straight 05/10/2019 11 :42 AM BLOW MOULDING MACHINE OPERATOR 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 No / Unsure 06/27/2019 10:58 AM CDT documented as of this encounter Plan of Treatment Upcoming Encounters Date Type Department Care Team (Late st Contact Info) Description 06/14/2024 7:20 AM CDT Office Visit [facility] Mult[facility]pecialty Care - [facility] 3 [facility], [address] [place] [address] Any Shaver MD 3 [place] [address] 06/20/2024 1:00 PM CDT Office Visit [facility] Orthopedic & Sports Medicine - [place] [address] [place] [address] Ryan Strange, SECURITY RISK ANALYST 6[address] [place] [address] 11/23/2024 1:00 PM CDT Office Visit [facility] Family Medicine - [place] 5 [place] [address] Sidney Leon, [address] [place] [address] documented as of this encounter Visit Diagnoses Not on filedocumented in this encounter Care Teams Wood Boatbuilder Apprentice Relationship Specialty [place] [address] [place] [address] PCP - General FAMILY PRACTICE 12/10/16 12/18/20 Sara Mansfield, [facility]- Three [facility], [address] [place] [address] PCP - General Nurse Practitioner Family 12/19/20 09/15/22 Sidney [place] [address] PCP - General 09/16/22 Blair Wheatley MD Three [address] [address] [place] Chemical Dependency Attendant CARDIOVASCULAR DISEASE 12/10/16 12/18/20 [place] [address] [place] [address] Referring Physician RHEUMATOLOGY 12/19/20 Gage Pham MD [facility], Suite [facility] [place] [address] Physician CARDIOVASCULAR DISEASE 12/19/20 documented as of this encounter
--- OUTSIDE RECORDS SUMMARY | 2024-06-13 11:33 | XMS_ITS | Encounter Summary ---
Author Organization [facility] Address [facility] [place] [address] Care Team Providers Care Automatic Clipper Name Role Phone Adam Nielsen MD Unavailable Unavailable Gage Pham MD Unavailable [phone] Eula Maddox Primary Care Provider + Sidney Leon DO Primary Care Provider [phone] Reason for Referral * Imaging (Routine) - Closed Specialty Diagnoses / Procedures Referred By Gita toure Referred To Contact RADIOLOGY Diagnoses Encounter for screening mammogram for breast cancer Procedures MG SCREENING W IRIS TRISTON DIGI Eula Maddox FNP-BC [facility], [address] [place] [address] Phone: tel: fax: Referral ID Status Reason Start Date Expiration Date Visits Re quested Visits Authorized [id number] Closed 07/15/2021 08/14/2022 1 1 Encounter Details Date Type Department Care Team (Late st Contact Info) Description 07/15/2021 [email or web address] Message Enc [facility] Medical Group Family & Internal Medicine [address] [address] Eula Maddox FNP-BC [address] [place] [phone] Manmogram Social History Tobacco Use Types Packs/Day Years Used Date Smoking Tobacco: Former Cigarettes 1 2016 Smokeless Tobacco: Never Comments:Stopped 5 years [...] Sex Assigned at Female 05/10/2019 11:42 AM INFORMATION CODER Legal Sex Female 4:46 PM CDT Gender Identity Female 05/10/2019 11:42 AM INFORMATION CODER Sexual Orientation Straight 05/10/2019 11 :42 AM INFORMATION CODER 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 Annual screening is recommended. Thanks! RUDDY SNYDER * RUDDY Snyder - 07/21/2021 6:53 AM CDT Labs reviewed. Thyroid function normal. Okay for follow-up in 6 months for chronic disease management. * Cindi Lion RN - 07/16/2021 12:19 PM CDT Eula records were received and placed on your desk for review. * RUDDY Snyder - 07/16/2021 9:59 AM CDT After I review the labs we can discuss follow-up * Cindi Lion RN - 07/15/2021 8:33 AM CDT Please advise when you want to see patient back and what labs are needed, patient may be able to get records from other providers office. documented in this encounter Plan of Treatment Upcoming Encounters Date Type Department Care Team (Late st Contact Info) Description 06/14/2024 7:20 AM CDT Office Visit [facility] Multispecialty [facility] 3 [facility], [address] [place] [address] Any Shaver MD 3 [place] [address] 06/20/2024 1:00 PM CDT Office Visit [facility] Orthopedic & Sports Medicine [facility] [address] [place] [address] Ryan Strange, BOBBY [address] [place] [address] 11/23/2024 1:00 PM CDT Office Visit [facility] Family Medicine [facility] [address] [place] [address] Sidney Leon DO [address] [place], [place] [id number] documented as of this encounter Procedures Procedure Name Priority Date/Time Associated Diagnosis Comments MG SCREENING W IRIS TRISTON DIGI Routine 08/20/2021 2:47 PM CDT Encounter for screening mammogram for breast cancer documented in this encounter Results * MG SCREENING W IRIS TRISTON DIGI (08/20/2021 2:47 PM CDT) Anatomical Region Laterality Modality Breast Bilateral Mammography 08/21/2021 10:5 9 AM CDT Impressions 08/21/2021 11:01 AM CDT IMPRESSION: 1. BI-RADS Category: Category 2 - benign findings. 2. Annual screening mammography recommended. A) A negative report should not delay a biopsy if a dominant or clinically suspicious mass is present. B) Adenosis and dense breasts may obscure an underlying neoplasm. C) Study interpreted with computer-aided detection. MQSA BI-RADS Categories: Category 0 - needs additional imaging evaluation. Category 1 - negative. Category 2 - benign findings. Category 3 - probably benign findings, but short interval followup is recommended. Category 4 - suspicious abnormality-biopsy should be considered. Category 5 - highly suggestive of malignancy and appropriate action should be taken. Category 6 - known biopsy-proven malignancy Ordered By: EULA MADDOX Interpreted By: Deysi Daiz, 08/21/2021 10:59 AM Narrative 08/21/2021 11:01 AM CDT DIGITAL BILATERAL SCREENING MAMMOGRAM WITH COMPUTER-AIDED DETECTION AND 3-D TOMOSYNTHESIS DATE: 08/20/2021 2:47 PM HISTORY: Screening examination. No complaints listed referable to either breast. COMPARISON: 08/14/2020 and 08/19/2011 mammogram. FINDINGS: Digital 2-D mammography and 3-D tomosynthesis performed of both breasts. Scattered parenchymal densities in both breasts. Minor benign-appearing nodularity and calcification. Parenchymal pattern has similar appearance to the prior studies. BREAST COMPOSITION: There are scattered areas of fibroglandular density. Eula REYNOLDSP-BC MAMMO Final Re sult documented in this encounter Visit Diagnoses Diagnosis Encounter for screening mammogram for breast cancer- Primary documented in this encounter Additional Health Concerns Assessment Noted Time PHQ-9 Depression Total Score: 4 12/20/19 21 8:53 AM CDT documented as of this encounter Care Teams Automatic Clipper Relationship Specialty Start Date End Date Eula Maddox FNP-BC [facility], [address] [place] [address] PCP - General Nurse Practitioner [facility] 12/19/20 09/15/22 Sidney Leon DO [address] [place] [address] [place] [address] PCP - General 09/16/22 Adam Nielsen MD Referring Physician RHEUMATOLOGY 12/19/20 Gage Pham MD [facility], [address] [place] [address] Physician CARDIOVASCULAR DISEASE 12/19/20 documented as of this encounter
--- OUTSIDE RECORDS SUMMARY | 2024-06-13 11:33 | XMS_ITS | Encounter Summary ---
Author Organization [facility] Address [facility] [place] [address] Care Team Providers Care Director Trust Name Role Phone Adam Nielsen MD Unavailable Unavailable Gage Pham MD Unavailable Sidney Leon DO Primary Care Provider [phone] Encounter Details Date Type Department Care Team (Late st Contact Info) Description 09/14/2023 MyChart Message Enc 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 [address] 11/23/2024 1:00 PM CDT Office Visit [facility] Family Medicine - [place] [address] [place] [address] Sidney Leon DO [address] [place] [address] [place] [address] documented as of this encounter Visit Diagnoses Not on filedocumented in this encounter Additional Health Concerns Assessment Noted Time PHQ-9 Depression Total Score: 4 12/20/19 21 8:53 AM CDT documented as of this encounter Care Teams Director Trust Relationship Specialty Start Date End Date Sidney Leon DO [address] [place], [place] [id number] PCP - General 09/16/22 Adam Nielsen MD Referring Physician RHEUMATOLOGY 12/19/20 Gage Pham MD [facility], [address] [place] [address] Physician CARDIOVASCULAR DISEASE 12/19/20 documented as of this encounter
--- OUTSIDE RECORDS SUMMARY | 2024-06-13 11:33 | XMS_ITS | Encounter Summary ---
Author Organization [place] Address Count includes the [facility]6 [place] [address] Care Team Providers Care Wood Sash And Frame Carpenter Name Role Phone Adam Nielsen MD Unavailable Unavailable Gage Pham MD Unavailable Sidney Leon DO Primary Care Provider [phone] Encounter Details Date Type Department Care Team (Late st Contact Info) Description 07/14/2023 [employer] Message Enc [facility] Medical Group Family Medicine - [place] 5 [place] [address] Sidney Leon DO [address] [place] [address] Mri Social History Tobacco Use Types Packs/Day Years [...] Sex Assigned at Female 05/10/2019 11:42 AM WAREHOUSE AND RECEIVING SUPERVISOR Legal Sex Female 4:46 PM CDT Gender Identity Female 05/10/2019 11:42 AM WAREHOUSE AND RECEIVING SUPERVISOR Sexual Orientation Straight 05/10/2019 11 :42 AM WAREHOUSE AND RECEIVING SUPERVISOR 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 Not on file Not on file documented as of this encounter Plan of Treatment Upcoming Encounters Date Type Department Care Team (Late st Contact Info) Description 06/14/2024 7:20 AM CDT Office Visit [facility] Multispecialty Care - [facility] 3 [facility], [address] [place] [address] Any Shaver MD 3 [place] [address] 06/20/2024 1:00 PM CDT Office Visit [facility] Orthopedic & Sports Medicine - [place] [address] [place], [place] [phone] Ryan Strange NP 670 [place], [place] [address] 11/23/2024 1:00 PM CDT Office Visit [facility] Family Medicine [facility] 5 [place] [address] Sidney Leon DO [address] [place] [address] [place], [place] [phone] documented as of this encounter Visit Diagnoses Not on filedocumented in this encounter Additional Health Concerns Assessment Noted Time PHQ-9 Depression Total Score: 4 12/20/19 21 8:53 AM CDT documented as of this encounter Care Teams Wood Sash And Frame Carpenter Relationship Specialty Start Date End Date Sidney Leon DO [address] [place] [address] PCP - General 09/16/22 Adam Nielsen MD Referring Physician RHEUMATOLOGY 12/19/20 Gage Pham MD [facility] [address] [place] [address] Physician CARDIOVASCULAR DISEASE 12/19/20 documented as of this encounter
--- OUTSIDE RECORDS SUMMARY | 2024-06-13 11:33 | XMS_ITS | Encounter Summary ---
Author Organization [facility] Address [facility] [place] [address] Care Team Providers Care Shaker Repairer Name Role Phone Blair Wheatley MD Unavailable [phone] Mack Edwards MD Primary Care Provider [phone] Adam Nielsen MD Unavailable Unavailable Gage Pham MD Unavailable [phone] Sara Mansfield [facility] Primary Care Provider + Sidney Leon DO Primary Care Provider [phone] Encounter Details Date Type Department Care Team (Late st Contact Info) Description 12/13/2020 Izzui Message Enc [facility] THREE [facility], [address] [address] [place], [facility] Provider RE: Results Social History Tobacco Use Types Packs/Day Years Used Date Smoking Tobacco: Former Cigarettes 2 21 04 986 - 2016 Smokeless Tobacco: Never Alcohol Use Standard Drinks/Week [...] please move on to questions 3-9 0 05/09/2020 Comments No Sex and Gender Information Value Date Recorded Sex Assigned at Female 05/10/2019 11:42 AM NATURAL GAS FIELD PROCESSING SUPERVISOR Legal Sex Female 4:46 PM CDT Gender Identity Female 05/10/2019 11:42 AM NATURAL GAS FIELD PROCESSING SUPERVISOR Sexual Orientation Straight 05/10/2019 11 :42 AM NATURAL GAS FIELD PROCESSING SUPERVISOR 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 No / Unsure 12/03/2020 2:30 PM CDT documented as of this encounter Progress Notes * Elizabeth Bolanos RN - 12/19/2020 9:59 AM CDT Please cancel Dr. Triplett appt on 01/01 * Elizabeth Bolanos RN - 12/18/2020 3:01 PM CDT Please see message from pt below and advise documented in this encounter Plan of Treatment Upcoming Encounters Date Type Department Care Team (Late st Contact Info) Description 06/14/2024 7:20 AM CDT Office Visit [facility] Medical [facility] Multispecialty Care - [facility] 3 [facility], [address] [place] [address] Any Shaver MD 3 [place] [address] 06/20/2024 1:00 PM CDT Office Visit [facility] Medical Group Orthopedic & Sports Medicine - [place] [address] [place] [address] Ryan Strange NP [address] [facility] [place] [address] 11/23/2024 1:00 PM CDT Office Visit [facility] Medical Group Family Medicine - [place] 5 [place] [address] Sidney Leon DO 5 [facility] [address] documented as of this encounter Visit Diagnoses Not on filedocumented in this encounter Care Teams Shaker Repairer Relationship Specialty [place] [address] [place] [address] PCP - General FAMILY PRACTICE 12/10/16 12/18/20 Sara [facility], [address] [place], [place] [address] PCP - General Nurse Practitioner Family 12/19/20 09/15/22 Sidney Leon DO 5 [place] [address] PCP - General 09/16/22 Blair Wheatley MD [facility] [address] [place], [place] [address] [place] Building Maintenance Mechanic CARDIOVASCULAR DISEASE 12/10/16 12/18/20 [place] [address] [place] [address] Referring Physician RHEUMATOLOGY 12/19/20 Gage Pham MD [facility], [address] [place] [address] Physician CARDIOVASCULAR DISEASE 12/19/20 documented as of this encounter
--- OUTSIDE RECORDS SUMMARY | 2024-06-13 11:33 | XMS_ITS | Encounter Summary ---
Author Organization [facility] Address [facility] [place] [address] Care Team Providers Care Health Administration Teacher Name Role Phone Blair Wheatley MD Unavailable [phone] Mack Edwards MD Primary Care Provider [phone] Adam Nielsen MD Unavailable Unavailable Gage Pham MD Unavailable [phone] Sara Mansfield [facility] Primary Care Provider + Sidney Leon DO Primary Care Provider [phone] Encounter Details Date Type Department Care Team (Late st Contact Info) Description 02/18/2020 kwiryt Message Enc [facility] Medical Group Family & Internal Medicine [address] [address] Sara Mansfield [address] [address] RE: TSH recheck Social History Tobacco Use Types Packs/Day Years Used Date Smoking Tobacco: Former Cigarettes Smokeless Tobacco: Never Comments:quit 12/07/16 Alcohol Use Standard Drinks/Week Comments Yes 0 (1 standard drink = 0.6 oz pur e alcohol) very little PHQ-2 Answer Date Recorded PHQ-2 Score 0 09/05/2019 Comments No Sex and Gender Information Value Date Recorded Sex Assigned at Female 05/10/2019 11:42 AM CLINICAL NURSING DIRECTOR Legal Sex Female 4:46 PM CDT Gender Identity Female 05/10/2019 11:42 AM CLINICAL NURSING DIRECTOR Sexual Orientation Straight 05/10/2019 11 :42 AM CLINICAL NURSING DIRECTOR 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 No / Unsure 02/21/2020 7:51 AM CLINICAL NURSING DIRECTOR documented as of this encounter Plan of Treatment Upcoming Encounters Date Type Department Care Team (Late st Contact Info) Description 06/14/2024 7:20 AM CDT Office Visit [facility]pecialty Care - [facility] 3 [facility], [address] [place] [address] Any Shaver MD 3 [place] [address] 06/20/2024 1:00 PM CDT Office Visit [facility] Orthopedic & Sports Medicine - [place] 6[address] [place] [address] Ryan Strange, LEAF BINNER 670 [place], [place] [address] 11/23/2024 1:00 PM CDT Office Visit [facility] Family Medicine - [place] 5 [place] [address] Sidney Leon DO 5 [place] [address] documented as of this encounter Visit Diagnoses Not on filedocumented in this encounter Care Teams Health Administration Teacher Relationship Specialty [place] [address] [place] [address] PCP - General FAMILY PRACTICE 12/10/16 12/18/20 Sara Mansfield, [facility] [address] [place] [address] PCP - General Nurse Practitioner Family 12/19/20 09/15/22 Sidney Leon DO [address] [place] [id number] PCP - General 09/16/22 Blair Wheatley MD Three [facility]. TOM [address] [place] [address] Conifer Bench Assembler Operator CARDIOVASCULAR DISEASE 12/10/16 12/18/20 [place] [address] [place] [address] Referring Physician RHEUMATOLOGY 12/19/20 Gage Pham MD [facility] [address] [place] [address] Physician CARDIOVASCULAR DISEASE 12/19/20 documented as of this encounter
--- OUTSIDE RECORDS SUMMARY | 2024-06-13 11:33 | XMS_ITS | Encounter Summary ---
Author Organization [facility] Address [facility] [place] [address] Care Team Providers Care Freelance Operator Name Role Phone Adam Nielsen MD Unavailable Unavailable Gage Pham MD Unavailable Sidney Leon DO Primary Care Provider [phone] Encounter Details Date Type Department Care Team (Latest Contact Info) Description 09/16/2023 EnviroGene Message Enc [facility] Medical Group Family Medicine - [place] 5 [place] [address] Sidney Leon DO [address] [place] [address] Levothyroxine prescription and labs Social History Tobacco Use Types Packs/Day Years [...] Sex Assigned at Female 05/10/2019 11:42 AM STAP[employer]ER COIL [employer] Legal Sex Female 4:46 PM CDT Gender Identity Female 05/10/2019 11:42 AM [employer] Sexual Orientation Straight 05/10/2019 11 :42 AM STAP[employer]ER [employer] 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 Not on file Not on file documented as of this encounter Plan of Treatment Upcoming Encounters Date Type Department Care Team (Late st Contact Info) Description 06/14/2024 7:20 AM CDT Office Visit [facility]ialty Care - [facility] 3 [facility], [address] [place] [address] Any Shaver MD 3 [place] [address] 06/20/2024 1:00 PM CDT Office Visit [facility] Orthopedic & Sports Medicine [facility] [address] [place] [place], [place] [address] Ryan Strange NP 670 [place], [place] [address] 11/23/2024 1:00 PM CDT Office Visit [facility] Family Medicine [facility] 5 [place] [address] Sidney Leon DO [address] [place] [address] [place], [place] [id number] documented as of this encounter Visit Diagnoses Not on filedocumented in this encounter Additional Health Concerns Assessment Noted Time PHQ-9 Depression Total Score: 4 12/20/19 21 8:53 AM CDT documented as of this encounter Care Teams Freelance Operator Relationship Specialty Start Date End Date Sidney Leon DO 5 [facility] [place], [place] [phone] PCP - General 09/16/22 Adam Nielsen MD Referring Physician RHEUMATOLOGY 12/19/20 Gage Pham MD [facility] [address] [place] [address] Physician CARDIOVASCULAR DISEASE 12/19/20 documented as of this encounter
--- OUTSIDE RECORDS SUMMARY | 2024-06-13 11:33 | XMS_ITS | Encounter Summary ---
Author Organization [facility] Address [facility]6 [place] [address] Care Team Providers Care Core Driller Name Role Phone Adam Nielsen MD Unavailable Unavailable Gage Pham MD Unavailable Sidney Leon DO Primary Care Provider [phone] Encounter Details Date Type Department Care Team (Late st Contact Info) Description 05/27/2023 [email or web address] Message Enc [facility] Medical Group Family Medicine - [place] 5 [place] [address] Sidney Leon DO [address] [place] [address] Diastasis recti Social History Tobacco Use Types Packs/Day Years [...] Sex Assigned at Female 05/10/2019 11:42 AM HARNESS PREPARER Legal Sex Female 4:46 PM CDT Gender Identity Female 05/10/2019 11:42 AM HARNESS PREPARER Sexual Orientation Straight 05/10/2019 11 :42 AM HARNESS PREPARER 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 Not on file Not on file documented as of this encounter Plan of Treatment Upcoming Encounters Date Type Department Care Team (Late st Contact Info) Description 06/14/2024 7:20 AM CDT Office Visit [facility] Multispecialty Care - [facility] 3 [facility], [address] [place] [address] Any Shaver MD 3 [place] [address] 06/20/2024 1:00 PM CDT Office Visit [facility] Orthopedic & Sports Medicine - [place] 670 [place], [place] [address] Ryan Strange NP 670 [place] [address] 11/23/2024 1:00 PM CDT Office Visit [facility] Family Medicine [facility] 5 [place] [address] Sidney Leon DO [address] [place] [address] [place], [place] [address] documented as of this encounter Visit Diagnoses Not on filedocumented in this encounter Additional Health Concerns Assessment Noted Time PHQ-9 Depression Total Score: 4 12/20/19 21 8:53 AM CDT documented as of this encounter Care Teams Core Driller Relationship Specialty Start Date End Date Sidney Leon DO 5 [place], [place] [id number] PCP - General 09/16/22 Adam Nielsen MD Referring Physician RHEUMATOLOGY 12/19/20 Gage Pham MD [facility]., [address] [place] [address] Physician CARDIOVASCULAR DISEASE 12/19/20 documented as of this encounter
--- OUTSIDE RECORDS SUMMARY | 2024-06-13 11:33 | XMS_ITS | Encounter Summary ---
Author Organization [place] Address [facility]ly [facility], [facility]6 [place] [address] Care Team Providers Care Legal Coordinator Name Role Phone Blair Wheatley MD Unavailable [phone] Mack Edwards MD Primary Care Provider [phone] Adam Nielsen MD Unavailable Unavailable Gage Pham MD Unavailable [phone] Sara Mansfield [facility] Primary Care Provider + Sidney Leon DO Primary Care Provider [phone] Encounter Details Date Type Department Care Team (Late st Contact Info) Description 02/06/2020 MyChart Message Enc [facility] Medical Group Multispecialty Care - [address], [address] [place] [address] Medhat Santana MD Follow Up/Update Social History Tobacco Use Types Packs/Day Years Used Date Smoking Tobacco: Former Cigarettes Smokeless Tobacco: Never Comments:quit 12/07/16 Alcohol Use Standard Drinks/Week Comments Yes 0 (1 standard drink = 0.6 oz pur e alcohol) very little PHQ-2 Answer Date Recorded PHQ-2 Score 0 09/05/2019 Comments No Sex and Gender Information Value Date Recorded Sex Assigned at Female 05/10/2019 11:42 AM GAMING WORKER Legal Sex Female 4:46 PM CDT Gender Identity Female 05/10/2019 11:42 AM GAMING WORKER Sexual Orientation Straight 05/10/2019 11 :42 AM GAMING WORKER 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 No / Unsure 01/29/2020 3:34 PM GAMING WORKER documented as of this encounter Plan of Treatment Upcoming Encounters Date Type Department Care Team (Late st Contact Info) Description 06/14/2024 7:20 AM CDT Office Visit [facility] Mult[facility]ialty Care - [facility] 3 [facility], [address] [place] [address] Any Shaver MD 3 [place] [address] 06/20/2024 1:00 PM CDT Office Visit [facility] Orthopedic & Sports Medicine - [place] [address] [place] [address] Ryan Strange, FIRST AID OFFICER 670 [place] [address] 11/23/2024 1:00 PM CDT Office Visit [facility] Family Medicine - [place] 5 [place] [address] Sidney Leon, [address] [place] [address] documented as of this encounter Visit Diagnoses Not on filedocumented in this encounter Care Teams Legal Coordinator Relationship Specialty [place] [address] [place] [address] PCP - General FAMILY PRACTICE 12/10/16 12/18/20 Sara Mansfield, POLICE ACADEMY PROGRAM COORDINATOR- Three [facility]., [address] [place] [address] PCP - General Nurse Practitioner Family 12/19/20 09/15/22 Sidney [place] [address] PCP - General 09/16/22 Blair Wheatley MD Three [address] [address] [place] Clinical Esthetician CARDIOVASCULAR DISEASE 12/10/16 12/18/20 [place] [address] [place] [address] Referring Physician RHEUMATOLOGY 12/19/20 Gage Pham MD [facility], [address] [place] [address] Physician CARDIOVASCULAR DISEASE 12/19/20 documented as of this encounter
--- OUTSIDE RECORDS SUMMARY | 2024-06-13 11:33 | XMS_ITS | Encounter Summary ---
Author Organization [facility] Address [facility] [place] [address] Care Team Providers Care Hand Candy Molder Name Role Phone Blair Wheatley MD Unavailable [phone] Mack Edwards MD Primary Care Provider [phone] Adam Nielsen MD Unavailable Unavailable Gage Pham MD Unavailable [phone] Sara Mansfield [facility] Primary Care Provider + Sidney Leon DO Primary Care Provider [phone] Encounter Details Date Type Department Care Team (Late st Contact Info) Description 02/06/2020 [email or web address] Message Enc [facility] Medical Group Family & Internal Medicine [address] [address] Sara Mansfield [address] [address] RE: Question Social History Tobacco [...] Sex Assigned at Female 05/10/2019 11:42 AM NEWSPAPER CARRIERS SUPERVISOR Legal Sex Female 4:46 PM CDT Gender Identity Female 05/10/2019 11:42 AM NEWSPAPER CARRIERS SUPERVISOR Sexual Orientation Straight 05/10/2019 11 :42 AM NEWSPAPER CARRIERS SUPERVISOR 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 No / Unsure 01/29/2020 3:34 PM NEWSPAPER CARRIERS SUPERVISOR documented as of this encounter Progress Notes * RUDDY Snyder - 02/13/2020 2:55 PM CST To my knowledge no. It appears Teresa has read the message PAPER CARRIERS SUPERVISOR * Eun Austin RN - 02/13/2020 1:58 PM CST Do I need to follow up on this? PAPER CARRIERS SUPERVISOR documented in this encounter Plan of Treatment Upcoming Encounters Date Type Department Care Team (Late st Contact Info) Description 06/14/2024 7:20 AM CDT Office Visit [facility] Mult[facility]pecialty Care - [facility] 3 [facility], [address] [place] [address] Any Shaver MD 3 [place] [address] 06/20/2024 1:00 PM CDT Office Visit [facility] Orthopedic & Sports Medicine - [place] [address] [place] [address] Ryan Strange NP 670 [facility] [place] [address] 11/23/2024 1:00 PM CDT Office Visit [facility] Family Medicine - [place] 5 [place] [address] Sidney Leon DO [address] [place] [address] documented as of this encounter Visit Diagnoses Not on filedocumented in this encounter Care Teams Hand Candy Molder Relationship Specialty [place] [address] [place] [address] PCP - General FAMILY PRACTICE 12/10/16 12/18/20 Sara Mansfield, [facility], [address] [place] [address] PCP - General Nurse Practitioner Family 12/19/20 09/15/22 Sidney Leon DO [address] [place] [address] PCP - General 09/16/22 Blair Wheatley MD [facility] TOM [address] [place] [address] [place] [employer]er CARDIOVASCULAR DISEASE 12/10/16 12/18/20 [place] [address] [place] [address] Referring Physician RHEUMATOLOGY 12/19/20 Gage Pham MD [facility], Suite [facility] [place] [address] Physician CARDIOVASCULAR DISEASE 12/19/20 documented as of this encounter
--- OUTSIDE RECORDS SUMMARY | 2024-06-13 11:33 | XMS_ITS | Encounter Summary ---
Author Organization [facility] Address [facility] [place] [address] Care Team Providers Care Punch Out Crew Member Name Role Phone Blair Wheatley MD Unavailable [phone] Mack Edwards MD Primary Care Provider [phone] Adam Nielsen MD Unavailable Unavailable Gage Pham MD Unavailable [phone] Sara Mansfield [facility] Primary Care Provider + Sidney Leon DO Primary Care Provider [phone] Encounter Details Date Type Department Care Team (Late st Contact Info) Description 12/14/2019 MyCSirenServt Message Enc [facility] Medical Group Family & Internal Medicine [address] [address] Sara Mansfield [address] [address] RE: Referral Request Social History [...] Sex Assigned at Female 05/10/2019 11:42 AM AUDIT INTERN Legal Sex Female 4:46 PM CDT Gender Identity Female 05/10/2019 11:42 AM AUDIT INTERN Sexual Orientation Straight 05/10/2019 11 :42 AM AUDIT INTERN 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 No / Unsure 12/12/2019 4:08 PM CDT documented as of this encounter Progress Notes * Key Heller RN - 12/18/2019 4:58 PM CDT . documented in this encounter Plan of Treatment Upcoming Encounters Date Type Department Care Team (Late st Contact Info) Description 06/14/2024 7:20 AM CDT Office Visit [facility] Multispecialty [facility] 3 [facility], [address] [place] [address] Any Shaver MD 3 [place] [address] 06/20/2024 1:00 PM CDT Office Visit [facility] Orthopedic & Sports Medicine - [place] [address] [place] [address] Ryan Strange NP 670 [place] [address] 11/23/2024 1:00 PM CDT Office Visit [facility] Family Medicine [facility] 5 [place] [address] Sidney Leon DO [address] [place] [address] documented as of this encounter Visit Diagnoses Not on filedocumented in this encounter Care Teams Punch Out Crew Member Relationship Specialty [place] [address] [place] [address] PCP - General FAMILY PRACTICE 12/10/16 12/18/20 Sara Mansfield, [facility], [address] [place], [place] [address] PCP - General Nurse Practitioner Family 12/19/20 09/15/22 Sidney Leon DO [address] [place] [address] PCP - General 09/16/22 Blair Wheatley MD [facility] [address] [place] [address] [place] Monkey Keeper CARDIOVASCULAR DISEASE 12/10/16 12/18/20 [place] [address] [place] [address] Referring Physician RHEUMATOLOGY 12/19/20 Gage Pham MD [facility], [address] [place] [address] Physician CARDIOVASCULAR DISEASE 12/19/20 documented as of this encounter
--- OUTSIDE RECORDS SUMMARY | 2024-06-13 11:33 | XMS_ITS | Encounter Summary ---
Author Organization [facility] Address [facility] [place] [address] Care Team Providers Care Art Framing Manager Name Role Phone Blair Wheatley MD Unavailable [phone] Mack Edwards MD Primary Care Provider [phone] Adam Nielsen MD Unavailable Unavailable Gage Pham MD Unavailable [phone] Sara Mansfield [facility] Primary Care Provider + Sidney Leon DO Primary Care Provider [phone] Encounter Details Date Type Department Care Team (Late st Contact Info) Description 11/02/2019 MyCOutlinet Message Enc [facility] Medical Group Family & Internal Medicine [address] [address] Sara Mansfield [address] [address] Test Results Social History Tobacco [...] Sex Assigned at Female 05/10/2019 11:42 AM ELIGIBILITY SPECIALIST Legal Sex Female 4:46 PM CDT Gender Identity Female 05/10/2019 11:42 AM ELIGIBILITY SPECIALIST Sexual Orientation Straight 05/10/2019 11 :42 AM ELIGIBILITY SPECIALIST Occupation Industry Job Start Date Job [...] Progress Notes * Eun Austin RN - 11/02/2019 10:56 AM CDT Provider spoke to patient directly and addressed conerns documented in this encounter Plan of Treatment Upcoming Encounters Date Type Department Care Team (Late st Contact Info) Description 06/14/2024 7:20 AM CDT Office Visit [facility] 3 [facility], [address] [place] [address] Any Shaver MD 3 [place] [address] 06/20/2024 1:00 PM CDT Office Visit [facility] Orthopedic & Sports Medicine - [place] [address] [facility] [place] [address] Ryan Strange NP 670 [place] [address] 11/23/2024 1:00 PM CDT Office Visit [facility] Family Medicine [facility] 5 [place] [address] Sidney Leon DO 5 [place] [address] documented as of this encounter Visit Diagnoses Not on filedocumented in this encounter Care Teams Art Framing Manager Relationship Specialty [place] [address] [place] [address] PCP - General FAMILY PRACTICE 12/10/16 12/18/20 Sara Mansfield, [facility] Three [facility], [address] [place], [place] [address] PCP - General Nurse Practitioner Family 12/19/20 09/15/22 [place] [address] PCP - General 09/16/22 Blair Wheatley MD [facility] [address] [place] [address] [place] Trimming Assembler CARDIOVASCULAR DISEASE 12/10/16 12/18/20 [place] [address] [place] [address] Referring Physician RHEUMATOLOGY 12/19/20 Gage Pham MD [facility], [address] [place] [address] Physician CARDIOVASCULAR DISEASE 12/19/20 documented as of this encounter
--- OUTSIDE RECORDS SUMMARY | 2024-06-13 11:33 | XMS_ITS | Encounter Summary ---
Author Organization [facility] Address [facility] [place] [address] Care Team Providers Care Fudge Candy Maker Name Role Phone Adam Nielsen MD Unavailable Unavailable Gage Pham MD Unavailable [phone] Sara Mansfield [facility] Primary Care Provider + Sidney Leon DO Primary Care Provider [phone] Encounter Details Date Type Department Care Team (Late st Contact Info) Description 03/27/2021 MyCInvariumt Message Enc [facility] Medical Group Family & Internal Medicine [address] [address] Sara Mansfield [address] [address] MRI Social History Tobacco Use Types Packs/Day [...] Sex Assigned at Female 05/10/2019 11:42 AM ANIMAL CARE TECHNICIAN Legal Sex Female 4:46 PM CDT Gender Identity Female 05/10/2019 11:42 AM ANIMAL CARE TECHNICIAN Sexual Orientation Straight 05/10/2019 11 :42 AM ANIMAL CARE TECHNICIAN 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 No / Unsure 03/25/2021 1:30 PM ANIMAL CARE TECHNICIAN documented as of this encounter Plan of Treatment Upcoming Encounters Date Type Department Care Team (Late st Contact Info) Description 06/14/2024 7:20 AM CDT Office Visit [facility] Multispecialty Care - [facility] 3 [facility], [address] [place] [address] Any Shaver MD 3 [place] [address] 06/20/2024 1:00 PM CDT Office Visit [facility] Orthopedic & Sports Medicine - [place] [address] [place] [address] Ryan Strange, BOBBY [address] [place] [address] 11/23/2024 1:00 PM CDT Office Visit [facility] Family Medicine - [place] 5 [place] [address] Sidney Leon DO [address] [place] [address] documented as of this encounter Visit Diagnoses Not on filedocumented in this encounter Additional Health Concerns Assessment Noted Time PHQ-9 Depression Total Score: 4 12/20/19 21 8:53 AM CDT documented as of this encounter Care Teams Fudge Candy Maker Relationship Specialty Start Date End Date Sara Mansfield FNP-BC Three [facility], [address] [place] [address] PCP - General Nurse Practitioner Family 12/19/20 09/15/22 [place] [address] PCP - General 09/16/22 Adam Nielsen MD Referring Physician RHEUMATOLOGY 12/19/20 Gage Pham MD [facility], [address] [place] [address] Physician CARDIOVASCULAR DISEASE 12/19/20 documented as of this encounter
--- OUTSIDE RECORDS SUMMARY | 2024-06-13 11:33 | XMS_ITS | Encounter Summary ---
Author Organization [facility] Address [facility] [place] [address] Care Team Providers Care Cage/Vault Supervisor Name Role Phone Blair Wheatley MD Unavailable [phone] Mack Edwards MD Primary Care Provider [phone] Adam Nielsen MD Unavailable Unavailable Gage Pham MD Unavailable [phone] Sara Mansfield [facility] Primary Care Provider + Sidney Leon DO Primary Care Provider [phone] Encounter Details Date Type Department Care Team (Late st Contact Info) Description 12/15/2019 Cardiostrong Message Enc [facility] Outpatient Rehab [address] [place], [place] [id number] [place] [address] [place], [place] [id number] Other Social History Tobacco Use Types Packs/Day Years Used Date Smoking Tobacco: Former Cigarettes Smokeless Tobacco: Never Comments:quit 12/07/16 Alcohol Use Standard Drinks/Week Comments Yes 0 (1 standard drink = 0.6 oz pur e alcohol) very little PHQ-2 Answer Date Recorded PHQ-2 Score 0 09/05/2019 Comments No Sex and Gender Information Value Date Recorded Sex Assigned at Female 05/10/2019 11:42 AM WELL SHOOTER Legal Sex Female 4:46 PM CDT Gender Identity Female 05/10/2019 11:42 AM WELL SHOOTER Sexual Orientation Straight 05/10/2019 11 :42 AM WELL SHOOTER 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 No / Unsure 12/18/2019 4:04 PM CDT documented as of this encounter Plan of Treatment Upcoming Encounters Date Type Department Care Team (Late st Contact Info) Description 06/14/2024 7:20 AM CDT Office Visit [facility]pecialty Care - [facility] 3 [facility], [address] [place] [address] Any Shaver MD 3 [place] [address] 06/20/2024 1:00 PM CDT Office Visit [facility] Orthopedic & Sports Medicine [facility] [address] [place], [place] [phone] Ryan Strange, OIL PUMP STATION OPERATOR CHIEF [address] [place], [place] [address] 11/23/2024 1:00 PM CDT Office Visit [facility] Family Medicine - [place] 5 [place] [id number] Sidney Leon DO 5 [place] [address] documented as of this encounter Visit Diagnoses Not on filedocumented in this encounter Care Teams Cage/Vault Supervisor Relationship Specialty [place] [address] [place] [address] PCP - General FAMILY PRACTICE 12/10/16 12/18/20 Sara Mansfield [facility] Three [facility] [address] [place] [address] PCP - General Nurse Practitioner Family 12/19/20 09/15/22 [place] [address] PCP - General 09/16/22 Blair Wheatley MD Three [facility]. [address] [place] [address] [employer] Lay Out Worker CARDIOVASCULAR DISEASE 12/10/16 12/18/20 [place] [address] [place] [address] Referring Physician RHEUMATOLOGY 12/19/20 Gage Pham MD [facility]., [address] [place] [address] Physician CARDIOVASCULAR DISEASE 12/19/20 documented as of this encounter
--- OUTSIDE RECORDS SUMMARY | 2024-06-13 11:33 | XMS_ITS | Encounter Summary ---
Author Organization [facility] Address [facility] [place] [address] Care Team Providers Care Ship Officer Name Role Phone Blair Wheatley MD Unavailable [phone] Mack Edwards MD Primary Care Provider [phone] Adam Nielsen MD Unavailable Unavailable Gage Pham MD Unavailable [phone] Sara Mansfield [facility] Primary Care Provider + Sidney Leon DO Primary Care Provider [phone] Encounter Details Date Type Department Care Team (Late st Contact Info) Description 05/01/2020 MyCWhite Rabbit [employer]t Message Enc [facility] Family & Internal Medicine [address] [address] Sara Mansfield [place] [address] [place] [address] RE: Other Social History Tobacco Use Types Packs/Day Years Used Date Smoking Tobacco: Former Cigarettes Smokeless Tobacco: Never Comments:quit 12/07/16 Alcohol Use Standard Drinks/Week Comments Yes 0 (1 standard drink = 0.6 oz pur e alcohol) very little PHQ-2 Answer Date Recorded PHQ-2 Score 0 09/05/2019 Comments No Sex and Gender Information Value Date Recorded Sex Assigned at Female 05/10/2019 11:[address] TRUCK DRIVER Legal Sex Female 4:46 PM CDT Gender Identity Female 05/10/2019 11:[address] TRUCK DRIVER Sexual Orientation Straight 05/10/2019 11 :[address]UCK DRIVER 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 No / Unsure 05/03/2020 7:[address] TRUCK DRIVER documented as of this encounter Plan of Treatment Upcoming Encounters Date Type Department Care Team (Late st Contact Info) Description 06/14/2024 7:20 AM CDT Office Visit [facility] Care - [facility] 3 [facility], [address] [place] [address] Any Shaver MD 3 [place] [address] 06/20/2024 1:00 PM CDT Office Visit [facility] Orthopedic & Sports Medicine - [place] [address] [place] [address] Ryan Strange, QUALITY CONTROL ANALYST [address] [place], [place] [address] 11/23/2024 1:00 PM CDT Office Visit [facility] Family Medicine - [place] 5 [place] [address] Sidney Leon DO 5 [place] [address] documented as of this encounter Visit Diagnoses Not on filedocumented in this encounter Care Teams Ship Officer Relationship Specialty [place] [address] [place] [address] PCP - General FAMILY PRACTICE 12/10/16 12/18/20 Sara Mansfield, [facility] Three [facility]., [address] [place] [address] PCP - General Nurse Practitioner Family 12/19/20 09/15/22 Sidney Leon DO [address] [place] [id number] PCP - General 09/16/22 Blair Wheatley MD Three [facility]. [address] [place] [address] [place] Hse Advisor CARDIOVASCULAR DISEASE 12/10/16 12/18/20 [place] [address] [place] [address] Referring Physician RHEUMATOLOGY 12/19/20 Gage Pham MD [facility]., [address] [place] [address] Physician CARDIOVASCULAR DISEASE 12/19/20 documented as of this encounter
--- OUTSIDE RECORDS SUMMARY | 2024-06-13 11:33 | XMS_ITS | Encounter Summary ---
Author Organization [facility] Address [address] [place] [address] Care Team Providers Care Cyber Security Analyst Name Role Phone Blair Wheatley MD Unavailable [phone] Mack Edwards MD Primary Care Provider [phone] Adam Nielsen MD Unavailable Unavailable Gage Pham MD Unavailable [phone] Sara Mansfield [facility] Primary Care Provider + Sidney Leon DO Primary Care Provider [phone] Encounter Details Date Type Department Care Team (Late st Contact Info) Description 12/03/2020 HaveMyShiftt Message Enc [facility] [address] [place] [address] Gage Pham MD [facility], [address] [place] [address] Question Social History Tobacco Use Types Packs/Day [...] Sex Assigned at Female 05/10/2019 11:42 AM FIREFIGHTER TYPE ONE Legal Sex Female 4:46 PM CDT Gender Identity Female 05/10/2019 11:42 AM FIREFIGHTER TYPE ONE Sexual Orientation Straight 05/10/2019 11 :42 AM FIREFIGHTER TYPE ONE Occupation Industry Job Start Date Job End [...] Description 06/14/2024 7:20 AM CDT Office Visit [facility] Multispecialty Care - [address], [address] [place] [address] Any Shaver MD 3 [place] [address] 06/20/2024 1:00 PM CDT Office Visit [facility] Orthopedic & Sports Medicine - [place] [address] [place] [address] Ryan Strange, COMMERCIAL FIELD INSPECTOR [address] [place] [address] 11/23/2024 1:00 PM CDT Office Visit [facility] Family Medicine - [place] 5 [place] [address] Sidney Leon DO 5 [place] [address] documented as of this encounter Visit Diagnoses Not on filedocumented in this encounter Care Teams Cyber Security Analyst Relationship Specialty [place] [address] [place] [address] PCP - General FAMILY PRACTICE 12/10/16 12/18/20 Sara Mansfield, [facility] Three [facility]., [address] [place], [place] [address] PCP - General Nurse Practitioner Family 12/19/20 09/15/22 [place] [address] PCP - General 09/16/22 Blair Wheatley MD Three [facility]. [address] [place] [address] [employer] S[employer]ability Executive Director CARDIOVASCULAR DISEASE 12/10/16 12/18/20 [place] [address] [place] [address] Referring Physician RHEUMATOLOGY 12/19/20 Gage Pham MD Three [facility]., [address] [place] [address] Physician CARDIOVASCULAR DISEASE 12/19/20 documented as of this encounter
--- OUTSIDE RECORDS SUMMARY | 2024-06-13 11:33 | XMS_ITS | Encounter Summary ---
Author Organization [facility] Address [facility] [place] [address] Care Team Providers Care Assembler And Tester Electronics Name Role Phone Adam Nielsen MD Unavailable Unavailable Gage Pham MD Unavailable [phone] Sidney Leon DO Primary Care Provider [phone] Encounter Details Date Type Department Care Team (Late st Contact Info) Description 07/19/[address] 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. [place], [place] [address] 11/23/2024 1:00 PM CDT Office Visit [facility] Family Medicine - [place] [address] [place] [address] Sidney Leon DO [address] [place] [address] [place] [address] documented as of this encounter Visit Diagnoses Not on filedocumented in this encounter Additional Health Concerns Assessment Noted Time PHQ-9 Depression Total Score: 4 12/20/19 21 8:53 AM CDT documented as of this encounter Care Teams Assembler And Tester Electronics Relationship Specialty Start Date End Date Sidney Leon DO [address] [place], [place] [id number] PCP - General 09/16/22 Adam Nielsen MD Referring Physician RHEUMATOLOGY 12/19/20 Gage Pham MD [facility], [address] [place], [place] [address] Physician CARDIOVASCULAR DISEASE 12/19/20 documented as of this encounter
--- OUTSIDE RECORDS SUMMARY | 2024-06-13 11:34 | XMS_ITS | Encounter Summary ---
Author Organization [facility] Address On [facility] of [facility] [place] [address] Care Team Providers Care Lining Layer Name Role Phone Blair Wheatley MD Unavailable [phone] Mack Edwards MD Primary Care Provider [phone] dAam Nielsen MD Unavailable Unavailable Gage Pham MD Unavailable [phone] Sara Mansfield [facility] Primary Care Provider + Sidney Leon DO Primary Care Provider [phone] Encounter Details Date Type Department Care Team (Late st Contact Info) Description 05/09/2020 [email or web address] Message [facility] [address] [place] [address] Sara Mansfield [facility] [address] [place] [id number] Test Results Social History Tobacco Use Types Packs/Day Years Used Date Smoking Tobacco: Former Cigarettes Smokeless Tobacco: Never Comments:quit 12/07/16 Alcohol Use Standard Drinks/Week Comments Yes 0 (1 standard drink = 0.6 oz pur e alcohol) very little PHQ-2 Answer Date Recorded PHQ-2 Score - If the patient scores above 3, please move on to questions 3-9 0 05/09/2020 Comments No Sex and Gender Information Value Date Recorded Sex Assigned at Female 05/10/2019 11:42 AM VOTING MACHINE REPAIRER Legal Sex Female 4:46 PM CDT Gender Identity Female 05/10/2019 11:42 AM VOTING MACHINE REPAIRER Sexual Orientation Straight 05/10/2019 11 :42 AM VOTING MACHINE REPAIRER 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 No / Unsure 05/10/2020 10:15 AM VOTING MACHINE REPAIRER documented as of this encounter Progress Notes * RUDDY Snyder - 05/09/2020 9:21 PM CST Please see telephone encounter 05/09/2020 NG MACHINE REPAIRER documented in this encounter Plan of Treatment Upcoming Encounters Date Type Department Care Team (Late st Contact Info) Description 06/14/2024 7:20 AM CDT Office Visit [facility] Multispecialty Care - [facility] 3 [facility], [address] [place] [address] Any Shaver MD 3 [place] [address] 06/20/2024 1:00 PM CDT Office Visit [facility] Orthopedic & Sports Medicine - [place] [address] [place] [address] Ryan Strange, BOBBY [address] [place] [address] 11/23/2024 1:00 PM CDT Office Visit [facility] Family Medicine - [place] 5 [place] [address] Sidney Leon DO 5 [place] [address] documented as of this encounter Visit Diagnoses Not on filedocumented in this encounter Care Teams Lining Layer Relationship Specialty [place] [address] [place] [address] PCP - General FAMILY PRACTICE 12/10/16 12/18/20 Sara Mansfield, HONING MACHINE OPERATOR [facility], [address] [facility] [place] [address] PCP - General Nurse Practitioner Family 12/19/20 09/15/22 Sidney Leno DO [address] [place] [address] PCP - General 09/16/22 Blair Wheatley MD [facility] [address] [place] [address] Badger Government Relations Manager CARDIOVASCULAR DISEASE 12/10/16 12/18/20 [place] [address] [place] [address] Referring Physician RHEUMATOLOGY 12/19/20 Gage Pham MD [facility], [address] [place] [address] Physician CARDIOVASCULAR DISEASE 12/19/20 documented as of this encounter
--- OUTSIDE RECORDS SUMMARY | 2024-06-13 11:34 | XMS_ITS | Encounter Summary ---
Author Organization [facility] Address On license of [facility] [place] [address] Care Team Providers Care Fire Equipment Repairer Inspector Name Role Phone Adam Nielsen MD Unavailable Unavailable Gage Pham MD Unavailable [phone] Sara Mansfield [facility] Primary Care Provider + Sidney Leon DO Primary Care Provider [phone] Encounter Details Date Type Department Care Team (Late st Contact Info) Description 01/05/2021 Enhanced Energy Groupt Message Enc [facility] Medical Group Family & Internal Medicine [address] [address] Sara Mansfield [address] [address] RE: Medication Questions Social History [...] Sex Assigned at Female 05/10/2019 11:42 AM RANCH HAND LIVESTOCK Legal Sex Female 4:46 PM CDT Gender Identity Female 05/10/2019 11:42 AM RANCH HAND LIVESTOCK Sexual Orientation Straight 05/10/2019 11 :42 AM RANCH HAND LIVESTOCK 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 Yes 01/07/2021 5:38 PM CDT documented as of this encounter Plan of Treatment Upcoming Encounters Date Type Department Care Team (Late st Contact Info) Description 06/14/2024 7:20 AM CDT Office Visit [facility] Multispecialty Care - [facility] 3 [facility], [address] [place] [address] Any Shaver MD [address] [place] [address] 06/20/2024 1:00 PM CDT Office Visit [facility] Orthopedic & Sports Medicine - [place] [address] [place] [address] Ryan Strange NP [address] [place] [address] 11/23/2024 1:00 PM CDT Office Visit [facility] Family Medicine - [place] 5 [facility] [place] [address] [place] [address] documented as of this encounter Visit Diagnoses Not on filedocumented in this encounter Additional Health Concerns Assessment Noted Time PHQ-9 Depression Total Score: 4 12/20/19 21 8:53 AM CDT documented as of this encounter Care Teams Fire Equipment Repairer Inspector Relationship Specialty Start Date End Date Sara Mansfield FNP-BC [facility], [address] [place] [address] PCP - General Nurse Practitioner Family 12/19/20 09/15/22 Sidney Leon DO [address] [place] [address] PCP - General 09/16/22 Adam Nielsen MD Referring Physician RHEUMATOLOGY 12/19/20 Gage Pham MD [facility], [address] [place] [address] Physician CARDIOVASCULAR DISEASE 12/19/20 documented as of this encounter
--- OUTSIDE RECORDS SUMMARY | 2024-06-13 11:34 | XMS_ITS | Clinical Summary ---
Author Organization [facility] Address [address] [place] [address] Care Team Providers Care Arabic Professor Name Role Phone Sidney Leon DO Primary Care Provide r Any Shaver MD Unavailable [phone] Allergies Active Allergy Reactions Criticality Noted Date Comments Cephalexin Hives,Urticaria Medium 12/17/2016 Ciprofloxacin Diarrhea,Dizziness,N ausea & Vomiting,Rash,Stomac h upset,Hives Medium 06/24/2017 Can not recall reaction Iodinated Contrast Media Itching Low 05/05/2023 Levofloxacin Hives,Urticaria Medium 05/10/2015 Metronidazole Hives,Urticaria,Naus ea & Vomiting Medium 12/10/2016 Oxycodone-Acetaminophen Hives,Mental sta tus changes,Nausea & Vomiting,Other (See comments),Shortness of breath,Unknown,Urtic aria High 08/27/2016 Altered mental status Altered mental status Altered mental status Altered mental status Altered mental status Reaction(s): Unknown; Note: RASH Sulfa Diarrhea,Stomach upset Low 01/25/2024 Medications losartan (COZAAR) 50 mg tablet Take 1 tablet (50 mg total) by mouth daily 3 Active buPROPion (WELLBUTRIN) 75 mg tablet Take 1 tablet (75 mg total) by mouth daily 4 Active traMADoL (ULTRAM) 50 mg tablet TAKE 1 TABLET BY MOUTH FOUR TIMES DAILY FOR PAIN CONTROL. TAKE WITH TYLENOL 4 Active predniSONE (DELTASONE) 5 mg tablet Take 1 tablet (5 mg) by mouth Active tocilizumab (Actemra) 162 mg/0.9 mL syringe every 30 (thirty) days 3 Active metoclopramide (REGLAN) 5 mg tablet Take 1 tablet (5 mg total) by mouth 4 (four) times a day Active levothyroxine (SYNTHROID) 88 mcg tablet Take 1 tablet (88 mcg total) by mouth daily 90 tablet 1 5 Active levothyroxine (SYNTHROID) 88 mcg tablet Take 1 tablet (88 mcg total) by mouth daily 0 05/15/19 25 Discontinu ed(Reorder ) Active Problems Problem Noted Date Diagnosed Date Seizures 01/25/2024 HTN (hypertension) 01/25/2024 Rheumatoid arthritis involvi ng multiple sites with positive rheumatoid factor 01/22/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 Overview (01/25/2024): repeat tsh in 1 month Hypothyroidism 08/27/2016 Overview (01/25/2024): repeat tsh in 1 month Encounters Date Type Department Care Team Description 05/05/2024 12:39 PM BUSINESS INTELLIGENCE ADMINISTRATOR - 05/05/2024 11:59 PM BUSINESS INTELLIGENCE ADMINISTRATOR Hospital Encounter [facility] [address] [place] [address] Douglas's disease Discharge Disposition: Discharge to home or self care 04/19/2024 Orders Only [facility] Endocrinology Metabolism and Lipid [address] [facility] [address] [place] [address] Jordyn Machuca MD Douglas's disease (Primary Dx) 03/29/2024 3:00 PM BUSINESS INTELLIGENCE ADMINISTRATOR Lab [facility] Infectious Diseases [address] [place] [address] 03/29/2024 2:47 PM BUSINESS INTELLIGENCE ADMINISTRATOR - 03/29/2024 11:59 PM BUSINESS INTELLIGENCE ADMINISTRATOR Hospital Encounter [address] [address] Douglas's disease Discharge Disposition: Discharge to home or self care 03/29/2024 2:00 PM BUSINESS INTELLIGENCE ADMINISTRATOR Office Visit [facility] Endocrinology Metabolism and Lipid [address] [facility] [address] [place] [address] Jordyn Machuca MD Douglas's disease from Last 3 Months Surgical History Surgery Date Site/Laterality Comments LUMBAR PUNCTURE WO INJECTION , DIAGNOSTIC 11/25/2023 N/A APPENDECTOMY 03/22/2012 - 03/21/2013 CHOLECYSTECTOMY 03/22/2016 - 03/21/2017 HYSTERECTOMY 03/22/2004 - 03/21/2005 EYE SURGERY double vision Medical History Medical History Date Comments Epilepsy (HCC) Hypertension Miscarriage Chronic kidney disease Hypothyroidism Family History Medical History Relation Name Comments Osteoarthritis Father Rheum arthritis Father Arthritis Mother Relation Name Status Comments Father Mother Social History Tobacco Use Types Packs/Day Years Used Date Smoking Tobacco: Never Passive Smoke Exposure: Never Smokeless Tobacco: Never Tobacco Cessation:Counseling Given: Not Answered AUDIT-C Answer Date Recorded Q1: How often do you have a drink containing alc ohol? Never 01/25/2024 Average Number of Drinks Not on file 024 Frequency of Binge Drinking Not on file 07/2023 Comments Unknown Sex and Gender Information Value Date Recorded Sex Assigned at Not on file Legal Sex Female 8:08 AM BUSINESS INTELLIGENCE ADMINISTRATOR Gender Identity Female 03/28/2024 2:12 PM BUSINESS INTELLIGENCE ADMINISTRATOR Sexual Orientation Not on file Obstetrics History Last Filed Vital Signs Vital Sign Reading Time Taken Comments Blood Pressure 132/89 03/29/2024 1:34 PM BUSINESS INTELLIGENCE ADMINISTRATOR Pulse 89 03/29/2024 1:34 PM BUSINESS INTELLIGENCE ADMINISTRATOR Temperature 36.7 C (98 F) 03/29/2024 1:34 PM BUSINESS INTELLIGENCE ADMINISTRATOR Respiratory Rate - - Oxygen Saturation 99% 01/25/2024 9:28 AM BUSINESS INTELLIGENCE ADMINISTRATOR Inhaled Oxygen Concentration - - Weight 67.1 kg (148 lb) 03/29/2024 1:34 PM BUSINESS INTELLIGENCE ADMINISTRATOR Height 154.9 cm (5' 1 ) 03/29/2024 1:34 PM BUSINESS INTELLIGENCE ADMINISTRATOR Body Mass Index 27.96 03/29/2024 1:34 PM BUSINESS INTELLIGENCE ADMINISTRATOR Plan of Treatment Health Maintenance Due Date Last Done Comments Colon Cancer Screening-Colonoscopy 1970 Depression Screening 1970 Hepatitis C Screening 1970 Regular Well Visit/Exam 18-64 1988 DTaP/Tdap/Td Vaccine (2 - Td or Tdap) 05/25/2018 05/25/2008 Covid-19 Vaccine (4 - 2024-2 5 season) 2023 12/15/2020, 05/03/2020, 04/05/2020 Influenza Vaccine (#1) 2023 , 12/03/2021, 12/15/2020, Additional history exists Breast Cancer Screening-Mammogram 01/02/2025 01/03/2024, 01/03/2024, 12/30/2022, Additional history exists Hepatitis B Screening Completed 01/08/2009 , 05/28/2008, 01/03/2007 Pneumococcal vaccine <65 Completed 10/07/2022, 04/2019 Zoster Vaccine Completed 02/19/2023, 12/08/2022 Procedures Procedure Name Priority Date/Time Associated Diagnosis Comments US THYROID Schedule Routine, Read Routine (OP Routine) 05/05/2024 1:54 PM BUSINESS INTELLIGENCE ADMINISTRATOR Douglas's disease T4, FREE Routine 03/29/2024 2:47 PM BUSINESS INTELLIGENCE ADMINISTRATOR Douglas's disease T3, FREE Routine 03/29/2024 2:47 PM BUSINESS INTELLIGENCE ADMINISTRATOR Douglas's disease TSH Routine 03/29/2024 2:47 PM BUSINESS INTELLIGENCE ADMINISTRATOR Douglas's disease from Last 3 Months Results * US Thyroid (05/05/2024 1:54 PM BUSINESS INTELLIGENCE ADMINISTRATOR) Anatomical Region Laterality Modality Head and Neck N/A Ultrasound 05/05/2024 2:52 PM BUSINESS INTELLIGENCE ADMINISTRATOR Impressions 05/05/2024 4:08 PM BUSINESS INTELLIGENCE ADMINISTRATOR 1. 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 2. No suspicious thyroid nodule or soft tissue mass within the imaged neck. Dictated by: Reji Carson M.D. The radiology attending physician has personally reviewed this study, and had reviewed and/or edited this written report and agrees with it. Electronically signed by: Ryne Henriquez M.D. 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 Evaluate for thyroid nodule. COMPARISON: None FINDINGS: The thyroid is small in size. Size right lobe: 4.5 cm craniocaudal, 1 cm transverse, 1.2 cm AP. Size left lobe: 4.1 cm craniocaudal, 1.2 cm transverse, 0.9 cm AP. Size isthmus: 0.3 cm AP. 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 No suspicious thyroid nodule. No suspicious soft tissue mass or lymph node. No fluid collection. 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 Evaluate for thyroid nodule. COMPARISON: None FINDINGS: The thyroid is small in size. Size right lobe: 4.5 cm craniocaudal, 1 cm transverse, 1.2 cm AP. Size left lobe: 4.1 cm craniocaudal, 1.2 cm transverse, 0.9 cm AP. Size isthmus: 0.3 cm AP. 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 No suspicious thyroid nodule. No suspicious soft tissue mass or lymph node. No fluid collection. IMPRESSION: 1. 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 2. No suspicious thyroid nodule or soft tissue mass within the imaged neck. Dictated by: Reji Carson M.D. The radiology attending physician has personally reviewed this study, and had reviewed and/or edited this written report and agrees with it. Electronically signed by: Ryne Henriquez M.D. us Jordyn Brewer MD IM US PROCEDURES Final Re sult * T3, free (03/29/2024 2:47 PM BUSINESS INTELLIGENCE ADMINISTRATOR) Free T3 3.2 2.0 - 4.4 pg/mL Blood 03/29/2024 2:47 PM BUSINESS INTELLIGENCE ADMINISTRATOR 03/29/2024 9:00 PM BUSINESS INTELLIGENCE ADMINISTRATOR Jordyn Brewer MD LAB BLOOD ORDERABLES Final Result Performing Organization Address [facility]/ZIP Co de Phone Number CARMELA DOWNING [phone] [address] [facility] [place] [address] * TSH (03/29/2024 2:47 PM BUSINESS INTELLIGENCE ADMINISTRATOR) Thyroid Stimulating Hormone 1.20 0.30 - 4.20 mcIUnit/mL Blood 03/29/2024 2:47 PM BUSINESS INTELLIGENCE ADMINISTRATOR 03/29/2024 9:00 PM BUSINESS INTELLIGENCE ADMINISTRATOR Jordyn Brewer MD LAB BLOOD ORDERABLES Final Result Performing Organization Address [facility] Co de Phone Number CARMELA DOWNING [phone] [facility] [place] [address] * T4, free (03/29/2024 2:47 PM BUSINESS INTELLIGENCE ADMINISTRATOR) Free T4 1.34 0.90 - 1.70 ng/dL Blood 03/29/2024 2:47 PM BUSINESS INTELLIGENCE ADMINISTRATOR 03/29/2024 9:00 PM BUSINESS INTELLIGENCE ADMINISTRATOR Jordyn Brewer MD LAB BLOOD ORDERABLES Final Result Performing Organization Address [facility] Co de Phone Number CARMELA DOWNING [address] [place] [address] from Last [address] [place] [address] [address] [place] [address] [place] [address] Care Teams Arabic Professor Relationship Specialty Start Date End Date Sidney Leon DO [address] [place] [address] PCP - General Family Medicine 10/14/22 Any Shaver MD [address] [place] [address] Consulting Physician Neurology 12/23/23
--- OUTSIDE RECORDS SUMMARY | 2024-06-13 11:34 | XMS_ITS | Encounter Summary ---
Author Organization [facility] Address [facility] [place] [address] Care Team Providers Care Final Inspector Paper Name Role Phone Adam Nielsen MD Unavailable Unavailable Gage Pham MD Unavailable [phone] Sara Mansfield [facility] Primary Care Provider + Sidney Leon DO Primary Care Provider [phone] Encounter Details Date Type Department Care Team (Late st Contact Info) Description 01/30/2021 [place] Light[place] Message Enc [facility] Medical Group Family & Internal Medicine [address] [address] Sara Mansfield [address] [address] [facility] what??? 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 No / Unsure 01/16/2021 7:31 AM CDT documented as of this encounter Progress Notes * Cindi Lion RN - 01/30/2021 12:34 PM CST Please advise. [employer] documented in this encounter Plan of Treatment Upcoming Encounters Date Type Department Care Team (Late st Contact Info) Description 06/14/2024 7:20 AM CDT Office Visit [facility] [address] [facility], [address] [place] [address] Any Shaver MD 3 [place] [address] 06/20/2024 1:00 PM CDT Office Visit [facility] Orthopedic & Sports Medicine - [place] [address] [place] [address] Ryan Strange NP [address] [facility] [place] [address] 11/23/2024 1:00 PM CDT Office Visit [facility] Family Medicine - [place] [address] [place] [address] Sidney Leon DO [address] [place] [address] documented as of this encounter Visit Diagnoses Not on filedocumented in this encounter Additional Health Concerns Assessment Noted Time PHQ-9 Depression Total Score: 4 12/20/19 21 8:53 AM CDT documented as of this encounter Care Teams Final Inspector Paper Relationship Specialty Start Date End Date [facility], [address] [place] [address] PCP - General Nurse Practitioner Family 12/19/20 09/15/22 Sidney Leon [place] [address] PCP - General 09/16/22 Adam Nielsen MD Referring Physician RHEUMATOLOGY 12/19/20 Gage Pham MD [facility], [address] [place] [address] Physician CARDIOVASCULAR DISEASE 12/19/20 documented as of this encounter
--- OUTSIDE RECORDS SUMMARY | 2024-06-13 11:34 | XMS_ITS | Encounter Summary ---
Author Organization [facility] Address [facility] [place] [address] Care Team Providers Care Chemical Dependency Nurse Name Role Phone Adam Nielsen MD Unavailable Unavailable Gage Pham MD Unavailable [phone] Sara MansfieldLUIS Primary Care Provider + Sidney Leon DO Primary Care Provider [phone] Reason for Referral * Consultation (Routine) - Closed Specialty Diagnoses / Procedures Referred By Gita toure Referred To Contact ENDOCRINOLOGY Diagnoses Acquired hypothyroidism Diaphoresis Sara Mansfield FNP-BC [facility], [address] [place] [address] Phone: tel: fax: Nj Green MD Phone: tel: fax: Referral ID Status Reason Start Date Expiration Date Visits Re quested Visits Authorized [id number] Closed 04/12/2021 04/12/2022 4 4 Encounter Details Date Type Department Care Team (Late st Contact Info) Description 01/22/2021 MyChart Message Enc [facility] Medical Group Family & Internal Medicine [address] [address] Sara Mansfield FNP-BC [facility] [place] [address] RE: Medication Questions Social History Tobacco Use [...] Sex Assigned at Female 05/10/2019 11:42 AM FORESTRY CONTRACTOR Legal Sex Female 4:46 PM CDT Gender Identity Female 05/10/2019 11:42 AM FORESTRY CONTRACTOR Sexual Orientation Straight 05/10/2019 11 :42 AM FORESTRY CONTRACTOR Occupation Industry Job Start Date Job End [...] Description 06/14/2024 7:20 AM CDT Office Visit [facility] Multispecialty Care - [facility] 3 [facility], [address] [place] [address] Any Shaver MD 3 [place] [address] 06/20/2024 1:00 PM CDT Office Visit [facility] Orthopedic & Sports Medicine - [place] [address] [place] [address] Ryan Strange NP [address] [place] [address] 11/23/2024 1:00 PM CDT Office Visit [facility] Medical Group Family Medicine [facility] 5 [place] [address] Sidney Leon DO [address] [place] [address] [place] [address] Scheduled Referrals Name Type Priority Associated Diagnoses Orde r Schedule Ambulatory referral to Endocrinology (MG ) Referral Routine Acquired hypothyroidism Diaphoresis Ordered: 01/24/2021 documented as of this encounter Visit Diagnoses Diagnosis Acquired hypothyroidism- Primary Unspecified hypothyroidism Diaphoresis Generalized hyperhidrosis documented in this encounter Additional Health Concerns Assessment Noted Time PHQ-9 Depression Total Score: 4 12/20/19 21 8:53 AM CDT documented as of this encounter Care Teams Chemical Dependency Nurse Relationship Specialty Start Date End Date Sara Mans[facility], [address] [address] PCP - General Nurse Practitioner Family 12/19/20 09/15/22 Sidney Leon DO [address] [place] [address] PCP - General 09/16/22 Adam Nielsen MD Referring Physician RHEUMATOLOGY 12/19/20 Gage Pham MD [facility], [address] [place] [address] Physician CARDIOVASCULAR DISEASE 12/19/20 documented as of this encounter
--- OUTSIDE RECORDS SUMMARY | 2024-06-13 11:34 | XMS_ITS | Encounter Summary ---
Author Organization [facility] Address On license of [facility] [place] [address] Care Team Providers Care Survey Research Associate Name Role Phone Blair Wheatley MD Unavailable [phone] Mack Edwards MD Primary Care Provider [phone] Adam Nielsen MD Unavailable Unavailable Gage Pham MD Unavailable [phone] Sara Mansfield [facility] Primary Care Provider + Sidney Leon DO Primary Care Provider [phone] Encounter Details Date Type Department Care Team (Late st Contact Info) Description 10/09/2020 MyCKSKTt Message Enc [facility] Medical Group Family & Internal Medicine [address] [address] Sara Mansfield [place] [place] [address] RE: Referral Request Social History Tobacco Use Types Packs/Day Years Used Date Smoking Tobacco: Former Cigarettes 2 21 04 986 - 2016 Smokeless Tobacco: Never Alcohol Use Standard Drinks/Week Comments Yes 0 (1 standard drink = 0.6 oz pur e alcohol) very little AUDIT-C Answer Date Recorded Q1: How often [...] Sex Assigned at Female 05/10/2019 11:42 AM EXPLOSIVE ORDNANCE DISPOSAL SPECIALIST Legal Sex Female 4:46 PM CDT Gender Identity Female 05/10/2019 11:42 AM EXPLOSIVE ORDNANCE DISPOSAL SPECIALIST Sexual Orientation Straight 05/10/2019 11 :42 AM EXPLOSIVE ORDNANCE DISPOSAL SPECIALIST 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 * RUDDY Snyder - 10/10/2020 6:31 AM CDT I am not seeing a referral for counseling. I am definitely okay with it but unsure how to order. documented in this encounter Plan of Treatment Upcoming Encounters Date Type Department Care Team (Late st Contact Info) Description 06/14/2024 7:20 AM CDT Office Visit [facility] Multispecialty Care - [facility] 3 [facility], [address] [place] [address] Any Shaevr MD 3 [place] [address] 06/20/2024 1:00 PM CDT Office Visit [facility] Medical Group Orthopedic & Sports Medicine - [place] [address] [place] [address] Ryan Strange NP [address] [place] [address] 11/23/2024 1:00 PM CDT Office Visit [facility] Medical Group Family Medicine - [place] 5 [place] [address] Sidney Leon DO [address] [place] [address] documented as of this encounter Visit Diagnoses Not on filedocumented in this encounter Care Teams Survey Research Associate Relationship Specialty [place] [address] [place] [address] PCP - General FAMILY PRACTICE 12/10/16 12/18/20 Sara Mansfield, [facility], [address] [place], [place] [id number] PCP - General Nurse Practitioner Family 12/19/20 09/15/22 Sidney Leon DO [address] [place] [address] PCP - General 09/16/22 Blair Wheatley MD [facility] [address] [place], [place] [address] Flint Senior Litigation Paralegal CARDIOVASCULAR DISEASE 12/10/16 12/18/20 [place] [address] [place] [address] Referring Physician RHEUMATOLOGY 12/19/20 Gage Pham MD [facility], [address] [place] [address] Physician CARDIOVASCULAR DISEASE 12/19/20 documented as of this encounter
--- OUTSIDE RECORDS SUMMARY | 2024-06-13 11:34 | XMS_ITS | Encounter Summary ---
Author Organization [facility] Address [facility] [place] [address] Care Team Providers Care Boat Mechanic Name Role Phone Blair Wheatley MD Unavailable [phone] Mack Edwards MD Primary Care Provider [phone] Adam Nielsen MD Unavailable Unavailable Gage Pham MD Unavailable [phone] Sara Mansfield [facility] Primary Care Provider + Sidney Leon DO Primary Care Provider [phone] Encounter Details Date Type Department Care Team (Late st Contact Info) Description 08/31/2020 MyCU*tiquet Message Enc [facility] Medical Group Family & Internal Medicine [address] [address] Sara Mansfield [place] [address] [place] [address] RE: Medication Questions Social History Tobacco [...] Sex Assigned at Female 05/10/2019 11:42 AM COPPER MINER BLASTING Legal Sex Female 4:46 PM CDT Gender Identity Female 05/10/2019 11:42 AM COPPER MINER BLASTING Sexual Orientation Straight 05/10/2019 11 :42 AM COPPER MINER BLASTING 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 No / Unsure 08/14/2020 3:05 PM CDT documented as of this encounter Plan of Treatment Upcoming Encounters Date Type Department Care Team (Late st Contact Info) Description 06/14/2024 7:20 AM CDT Office Visit [facility] Multispecialty Care - [address], [address] [place] [address] Any Shaver MD [address] [place] [address] 06/20/2024 1:00 PM CDT Office Visit [facility] Orthopedic & Sports Medicine - [place] [address] [place] [address] Ryan Strange, [place] [address] [place] [address] 11/23/2024 1:00 PM CDT Office Visit [facility] Family Medicine - [place] 5 [place] [address] Sidney Leon DO 5 [place] [address] documented as of this encounter Visit Diagnoses Not on filedocumented in this encounter Care Teams Boat Mechanic Relationship Specialty [place] [address] [place] [address] PCP - General FAMILY PRACTICE 12/10/16 12/18/20 Sara Mansfield, [facility] [address] [facility], [address] [place], [place] [address] PCP - General Nurse Practitioner Family 12/19/20 09/15/22 [place] [address] PCP - General 09/16/22 Blair Wheatley MD [facility] [address] [place] [address] [place] [employer]um Floor Layer CARDIOVASCULAR DISEASE 12/10/16 12/18/20 [place] [address] [place] [address] Referring Physician RHEUMATOLOGY 12/19/20 Gage Pham MD [facility], [address] [place] [address] Physician CARDIOVASCULAR DISEASE 12/19/20 documented as of this encounter
--- OUTSIDE RECORDS SUMMARY | 2024-06-13 11:34 | XMS_ITS | Referral Summary ---
Author Organization [facility] Address [address] [place] [address] Care Team Providers Care Guest Relations Receptionist Name Role Phone EdwardSidney Primary Care Provide r Any Shaver MD Unavailable [phone] Encounters Date Type Department Care Team Description 05/05/2024 12:39 PM ANESTHESIOLOGIST ASSISTANT - 05/05/2024 11:59 PM ANESTHESIOLOGIST ASSISTANT Hospital Encounter [facility] [address] [place] [address] Douglas's disease Discharge Disposition: Discharge to home or self care 04/19/2024 Orders Only [facility] Endocrinology Metabolism and Lipid [address] [place] [id number] Jordyn Machuca MD Douglas's disease (Primary Dx) 03/29/2024 2:47 PM ANESTHESIOLOGIST ASSISTANT - 03/29/2024 11:59 PM ANESTHESIOLOGIST ASSISTANT Hospital Encounter [id number] [place] [address] Douglas's disease Discharge Disposition: Discharge to home or self care 03/29/2024 3:00 PM ANESTHESIOLOGIST ASSISTANT Lab [facility] Infectious Diseases [address] [place] [phone] 03/29/2024 2:00 PM ANESTHESIOLOGIST ASSISTANT Office Visit [facility] Endocrinology Metabolism and Lipid [address] [place] [phone] Vijay Brewer, Jordyn, MD Douglas's disease from Last 3 Months Allergies Active Allergy Reactions Criticality Noted Date [...] Overview (01/25/2024): repeat tsh in 1 month Social History Tobacco Use Types Packs/Day Years [...] on file Legal Sex Female 8:08 AM ANESTHESIOLOGIST ASSISTANT Gender Identity Female 03/28/2024 2:12 PM ANESTHESIOLOGIST ASSISTANT Sexual Orientation Not on file Last Filed Vital Signs Vital Sign Reading Time Taken Comments Blood Pressure 132/89 03/29/2024 1:34 PM ANESTHESIOLOGIST ASSISTANT Pulse 89 03/29/2024 1:34 PM ANESTHESIOLOGIST ASSISTANT Temperature 36.7 C (98 F) 03/29/2024 1:34 PM ANESTHESIOLOGIST ASSISTANT Respiratory Rate - - Oxygen Saturation 99% 01/25/2024 9:28 AM ANESTHESIOLOGIST ASSISTANT Inhaled Oxygen Concentration - - Weight 67.1 kg (148 lb) 03/29/2024 1:34 PM ANESTHESIOLOGIST ASSISTANT Height 154.9 cm (5' 1 ) 03/29/2024 1:34 PM ANESTHESIOLOGIST ASSISTANT Body Mass Index 27.96 03/29/2024 1:34 PM ANESTHESIOLOGIST ASSISTANT Plan of Treatment Not on file Procedures Procedure Name Priority Date/Time Associated Diagnosis Comments US THYROID Schedule Routine, Read Routine (OP Routine) 05/05/2024 1:54 PM ANESTHESIOLOGIST ASSISTANT Douglas's disease T4, FREE Routine 03/29/2024 2:47 PM ANESTHESIOLOGIST ASSISTANT Douglas's disease T3, FREE Routine 03/29/2024 2:47 PM ANESTHESIOLOGIST ASSISTANT Douglas's disease TSH Routine 03/29/2024 2:47 PM ANESTHESIOLOGIST ASSISTANT Douglas's disease from Last 3 Months Results * US Thyroid (05/05/2024 1:54 PM ANESTHESIOLOGIST ASSISTANT) Anatomical Region Laterality Modality Head and Neck N/A Ultrasound 05/05/2024 2:52 PM ANESTHESIOLOGIST ASSISTANT Impressions 05/05/2024 4:08 PM ANESTHESIOLOGIST ASSISTANT 1. 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 2. No suspicious thyroid nodule or soft tissue mass within the imaged neck. Dictated by: Reji Carson M.D. The radiology attending physician has personally reviewed this study, and had reviewed and/or edited this written report and agrees with it. Electronically signed by: Ryne Henriquez M.D. Narrative 05/05/2024 4:08 PM ANESTHESIOLOGIST ASSISTANT EXAMINATION: THYROID SONOGRAM HISTORY: 53-year-old female with [...] it. Electronically signed by: Ryne Henriquez M.D. Jordyn Brewer MD IMG US PROCEDURES Final Re sult * T3, free (03/29/2024 2:47 PM ANESTHESIOLOGIST ASSISTANT) Free T3 3.2 2.0 - 4.4 pg/mL Blood 03/29/2024 2:47 PM ANESTHESIOLOGIST ASSISTANT 03/29/2024 9:00 PM ANESTHESIOLOGIST ASSISTANT Jordyn Brewer MD LAB BLOOD ORDERABLES Final Result Performing Organization Address [facility] de Phone Number [place] [address] [address] [facility] [place] [address] * TSH (03/29/2024 2:47 PM ANESTHESIOLOGIST ASSISTANT) Thyroid Stimulating Hormone 1.20 0.30 - 4.20 mcIUnit/mL Blood 03/29/2024 2:47 PM ANESTHESIOLOGIST ASSISTANT 03/29/2024 9:00 PM ANESTHESIOLOGIST ASSISTANT Jordyn Brewer MD LAB BLOOD ORDERABLES Final Result Performing Organization Address [facility] [place] [address] [address] [facility] [place] [address] * T4, free (03/29/2024 2:47 PM ANESTHESIOLOGIST ASSISTANT) Free T4 1.34 0.90 - 1.70 ng/dL Blood 03/29/2024 2:47 PM ANESTHESIOLOGIST ASSISTANT 03/29/2024 9:00 PM ANESTHESIOLOGIST ASSISTANT Jordyn Brewer MD LAB BLOOD ORDERABLES Final Result Performing Organization Address City/State/[facility] [place] [address] [address] [place] [address] from Last [address] [place] [place] [address] [place] [address] [place] [address] Care Teams Guest Relations Receptionist Relationship Specialty Start Date End Date Sidney Leon DO [address] [place] [address] PCP - General Family Medicine 10/14/22 Any Shaver MD [address] [place] [address] Consulting Physician Neurology 12/23/23
--- OUTSIDE RECORDS SUMMARY | 2024-06-13 11:34 | XMS_ITS | Encounter Summary ---
Author Organization [facility] Address [facility] [place] [address] Care Team Providers Care Home Based Assistant Name Role Phone Adam Nielsen MD Unavailable Unavailable Gage hPam MD Unavailable [phone] Sara Mansfield [facility] Primary Care Provider + Sidney Leon DO Primary Care Provider [phone] Encounter Details Date Type Department Care Team (Late st Contact Info) Description 01/08/2021 [facility] Message Enc [facility] Family & Internal Medicine [address] [phone] Sara Mansfield [address] [address] RE: Question Social History Tobacco [...] Sex Assigned at Female 05/10/2019 11:42 AM GEOSPATIAL IMAGERY INTELLIGENCE ANALYST Legal Sex Female 4:46 PM CDT Gender Identity Female 05/10/2019 11:42 AM GEOSPATIAL IMAGERY INTELLIGENCE ANALYST Sexual Orientation Straight 05/10/2019 11 :42 AM GEOSPATIAL IMAGERY INTELLIGENCE ANALYST 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 Yes 01/07/2021 5:38 PM CDT documented as of this encounter Progress Notes * Cindi Lion RN - 01/08/2021 9:28 AM CDT Please advise. documented in this encounter Plan of Treatment Upcoming Encounters Date Type Department Care Team (Late st Contact Info) Description 06/14/2024 7:20 AM CDT Office Visit [facility] [address] [place] [address] Any Shaver MD [address] [place] [address] 06/20/2024 1:00 PM CDT Office Visit [facility] Orthopedic & Sports Medicine - [place] [address] [place] [address] Ryan Strange NP [address] [place] [address] 11/23/2024 1:00 PM CDT Office Visit [facility] Family Medicine - [place] [address] [place] [phone] Sidney Leon DO [address] [place] [address] documented as of this encounter Results * TSH W/REFLEX (01/08/2021 2:46 PM CDT) TSH 1.597 0.358 - 3.74 uIU/ML 01/08/2021 3:36 PM CDT [facility] Comment: HIGH DOSES OF BIOTIN MAY INTERFERE WITH THIS TEST RESULT. CORRELATION TO CLINICAL HISTORY AND PRESENTATION RECOMMENDED. FREE T4 NOT INDICATED 01/08/2021 2:46 PM CDT Sara Mansfield [facility] Final Re sult [facility] [address] [id number], documented in this encounter Visit Diagnoses Diagnosis Acquired hypothyroidism- Primary Unspecified hypothyroidism documented in this encounter Additional Health Concerns Assessment Noted Time PHQ-9 Depression Total Score: 4 12/20/19 8:53 AM CDT documented as of this encounter Care Teams Home Based Assistant Relationship Specialty Start Date End Date Sara Mansfield FNP- [facility], [address] [place] [address] PCP - General Nurse Practitioner Family 12/19/20 09/15/22 Sidney [place] [address] PCP - General 09/16/22 Adam Nielsen MD Referring Physician RHEUMATOLOGY 12/19/20 Gage Pham MD [facility], [address] [place] [address] Physician CARDIOVASCULAR DISEASE 12/19/20 documented as of this encounter
== END 2024-06-13 10:34 | disposition home or self-care (01) ==
PROVIDERS: Emergency Provider Nurse Practitioner Family
DX: J06.9 Acute upper respiratory infection, unspecified (principal); Z20.822 Contact with and (suspected) exposure to COVID-19; M35.9 Systemic involvement of connective tissue, unspecified
CPT/HCPCS: 87081; 87426; 87804; 87880; 99213; G0463